=== PATIENT | female | born 1980 | race African-American/Black ===

== ENCOUNTER 2022-11-19 10:16 | Emergency (ER) | payer OTHER, SELFPAY ==
--- NOTE | ~2022-11-19 | CT_ITS ---
EXAMINATION: CT abdomen pelvis wo con DATE: 11/19/2022 12:59 INDICATION: Flank pain. Prior gastric bypass surgery and cholecystectomy. TECHNIQUE: Computed tomography (CT) of the abdomen and pelvis was performed without intravenous contr ast. The dose-length product was 448.25 mGy-cm. Automated exposure control and iterative reconstructi on technique were employed. COMPARISON: None. FINDINGS: Lung bases are unremarkable. Heart size normal. No significant pleural or pericardial effus ion. There are cholecystectomy clips. The liver, spleen, pancreas, adrenal glands and kidneys are unr emarkable. No lymphadenopathy. Small fat-containing umbilical hernia. Nonobstructive bowel gas patter n. No free air or free fluid. No significant vascular abnormality. No lymphadenopathy. No renal/ureteral stones or hydronephrosis. Bladder is unremarkable. The liver, spleen, pancreas, adrenal glands and kidneys are unremarkable. No acute osseous abnormalit y. Normal appendix. IMPRESSION: 1. No acute abdominal abnormality. Reviewed, dictated and finalized at location A. D [employer]
[2022-11-19 10:29] VITALS: BP 135/84; PULSE 72; RESP 18; TEMP 36.6; O2SAT 100
--- NOTE | 2022-11-19 10:42 | ED.GENADULT ---
HPI - General Adult General Chief complaint: Back Pain/Injury Stated complaint: back pain (chronic pain) Time Seen by Provider: 11/19/22 10:29 History of Present Illness HPI narrative: Patient is a 42-year-old female who presents ER with back pain. Left-sided and aching. Different from her typical chronic back pain that she has been suffering from since having workplace injury several months ago. She has chronic tingling in her legs from that injury and has not changed with this new back pain. No fevers or chills or sweats. Patient has some mild stomach ache. No alleviating factors at home. Patient also reports that she has foul-smelling urine without dysuria or urinary frequency. She also reports that she has some moderate vaginal discharge and is not concerned for STI. Denies retained foreign body Related Data Allergies Allergy/AdvReac Type Severity Reaction Status Date / Time No Known Allergies Allergy Verified 11/19/22 10:36 Review of Systems Review of Systems: All systems reviewed & are unremarkable except as noted in HPI and below Constitutional: Constitutional: Denies chills, Denies fatigue and Denies fever(s) ENT: Denies nasal congestion and Denies sore throat Cardiovascular: Cardiovascular: Denies chest pain, Denies rapid heart rate and Denies radiating jaw, neck or arm pain Gastrointestinal: Gastrointestinal: Reports abdominal pain, Denies nausea and Denies vomiting Genitourinary: Genitourinary: Denies abnormal vaginal bleeding, Denies hematuria, Denies nocturia, Denies dysuria, Denies pelvic pain, Denies flank pain and Reports vaginal discharge Musculoskeletal: Musculoskeletal: Reports back pain, Denies arthralgias and Denies joint swelling Exam Narrative: GENERAL: Well-appearing, well-nourished, and in no acute distress. HEAD: Normocephalic, atraumatic. ENT: Mucous membranes moist. CHEST: Clear to auscultation. No respiratory distress. HEART: Regular rate and rhythm. Normal peripheral pulses. ABDOMEN: Soft, nontender, nondistended. Left CVA tenderness. Neck: No midline tenderness to T/L-spine. EXTREMITIES: Normal range of motion. No edema. SKIN: Warm, dry, no rash. NEURO: Alert and oriented x3. PSYCH: Normal mood and affect. Course Course Emergency Course: Patient informed results. Discharge home with muscle relaxers to help with her back pain. No acute infectious process. Vital Signs Vital signs: Vital Signs Temperature 97.8 F 11/19/22 10:29 Pulse Rate 72 11/19/22 10:29 Respiratory Rate 18 11/19/22 10:29 Blood Pressure 135/84 11/19/22 10:29 Pulse Oximetry 100 11/19/22 10:29 Oxygen Delivery Room Air 11/19/22 10:29 Temperature 97.8 F 11/19/22 10:29 Pulse Rate 72 11/19/22 10:29 Respiratory Rate 18 11/19/22 10:29 Blood Pressure 141/81 H 11/19/22 14:46 Pulse Oximetry 100 11/19/22 10:29 Oxygen Delivery Room Air 11/19/22 10:29 Medical Decision Making Vital Signs Vital Signs: Vital Signs Temperature 97.8 F 11/19/22 10:29 Pulse Rate 72 11/19/22 10:29 Respiratory Rate 18 11/19/22 10:29 Blood Pressure 135/84 11/19/22 10:29 Pulse Oximetry 100 11/19/22 10:29 Oxygen Delivery Room Air 11/19/22 10:29 Temperature 97.8 F 11/19/22 10:29 Pulse Rate 72 11/19/22 10:29 Respiratory Rate 18 11/19/22 10:29 Blood Pressure 141/81 H 11/19/22 14:46 Pulse Oximetry 11/19/22 10:29 Oxygen Delivery Room Air 11/19/22 10:29 Lab Data 11/19/22 11:38 11/19/22 11:38 Labs: Lab Results 11/19/22 11/19/22 11/19/22 Range/Units 11:38 11:38 11:38 WBC 6.7 (4.5-10.0) K/mm3 RBC 4.87 (4.2-5.4) M/mm3 Hgb 13.8 (12.0-15.0) g/dL Hct 40.7 (37.0-47.0) % MCV 83.6 (80-100) fl MCH 28.3 (26-34) pg MCHC 33.9 (32-36) g/dl RDW 12.8 (11.5-14.5) % Plt Count 206 (150-375) k/mm3 MPV 10.3 (7.4-10.4) fl Immature Gran % (Auto) 0.3 (0-0.5) % Neut % (Auto) 6
[2022-11-19] MEDS: SODIUM CHLORIDE 0.9% IV 1,000 ML 999 ML IV CONT (11:18)
[2022-11-19] MEDS: KETOROLAC 30 MG/ML VIAL (*BKC) IV PUSH (11:19)
[2022-11-19 11:43] LABS: Basophils Percent Auto 0.6 % (0.2-1.2); Eosinophils Absolute Auto 0.1 K/mm3 (0-0.3); Eosinophils Percent Auto 1.3 % (0-4.4); Hematocrit 40.7 % (37.0-47.0); Hemoglobin 13.8 g/dL (12.0-15.0); Immature Granulocyte Absolute 0.02 K/mm3 (0.00-0.031); Immature Granulocyte Percent A 0.3 % (0-0.5); Lymphocytes Absolute Auto 1.77 K/mm3 (0.9-3.2); Lymphocytes Percent Auto 26.4 % (18.3-44.2); Mean Corpuscular HGB Conc 33.9 g/dl (32-36); Mean Corpuscular Hemoglobin 28.3 pg (26-34); Mean Corpuscular Volume 83.6 fl (80-100); Mean Platelet Volume 10.3 fl (7.4-10.4); Monocytes Absolute Auto 0.6 K/mm3 (0.1-0.6); Monocytes Percent Auto 9.2 % (2.6-8.5); Neutrophils Absolute Auto 4.2 K/mm3 (1.3-6.7); Neutrophils Percent Auto 62.2 % (45.5-73.1); Platelet Count Result 206 k/mm3 (150-375); Red Blood Count 4.87 M/mm3 (4.2-5.4); Red Cell Distribution Width 12.8 % (11.5-14.5); White Blood Count 6.7 K/mm3 (4.5-10.0)
[2022-11-19 11:46] LABS: Appearance Urine Clear (Clear); Bilirubin Urine Negative (Negative); Blood Urine 1+ (Negative); Color Urine Yellow (Yellow); Glucose Urine UA Negative (Negative); Ketones Urine Negative (Negative); Leukocyte Esterase Ur Negative LEU/UL (Negative); Nitrate Urine Negative (Negative); Protein Urine Negative (Negative); Specific Grav Ur 1.015 (1.001-1.035)
[2022-11-19 11:52] LABS: Bacteria Urine Trace /hpf; RBC Urine 0-2 /hpf (0-2); Squamous Epithelial Cell Urine Few /hpf (Few); WBC Urine 0-3 /hpf
[2022-11-19 11:56] LABS: Alanine Aminotransferase 17 U/L (6-35); Albumin Level 4.4 g/dL (3.5-5.1); Alkaline Phosphatase 80 U/L (38-126); Anion Gap 4 mmol/L (8-16); Aspartate Amino Transferase 21 U/L (14-36); Bilirubin,Total 0.4 mg/dL (0.2-1.3); Blood Urea Nitrogen 11 mg/dL (7-17); Calcium 8.5 mg/dL (8.4-10.2); Carbon Dioxide 30 mmol/L (22-30); Chloride 102 mmol/L (98-107); Estimated CRCL calculation 97 ml/min; Estimated Glomerular Filt Rate > 60; Glucose 90 mg/dL (65-110); Sodium 136 mmol/L (137-145)
[2022-11-19 12:00] LABS: Add Urine Microscopic? YES
[2022-11-19 14:46] VITALS: BP 141/81
== END 2022-11-19 14:50 | disposition home or self-care (01) ==
PROVIDERS: Emergency Provider Emergency Medicine
DX: S39.012A Strain of muscle, fascia and tendon of lower back, initial encounter (principal); X58.XXXA Exposure to other specified factors, initial encounter
CPT/HCPCS: 36415; 74176; 80053; 81001; 81025; 85025; 87070; 87491; 87591; 87808; 96361; 96374; 99284; J1885; J7030

== ENCOUNTER 2023-04-06 03:46 | Emergency (ER) | payer OTHER, SELFPAY ==
[2023-04-06 03:49] VITALS: BP 137/71; PULSE 67; RESP 20; TEMP 36.8; O2SAT 98
--- NOTE | 2023-04-06 04:04 | ED.GENADULT ---
HPI - General Adult General Chief complaint: Extremity Problem,Nontraumatic Stated complaint: post op pain Time Seen by Provider: 04/06/23 03:56 History of Present Illness HPI narrative: Patient is a 42-year-old female who presents the emergency department with chief complaint of diffuse Right hand pain. The patient reports that she had surgery at [facility] on her right middle finger patient reports that she was placed in a splint and given a prescription for hydrocodone for home. Patient reports that she has been having discomfort in the hand reports that its been throbbing and she took 2 doses of hydrocodone and has not had improvement in her symptoms. The patient also reports she took additional tramadol as well patient reports that she loosened the splint reports no discoloration of her fingertips Related Data Allergies Allergy/AdvReac Type Severity Reaction Status Date / Time No Known Allergies Allergy Verified 04/06/23 04:01 Review of Systems Review of Systems: A 10 system review of systems was completed on the patient and is negative except for what is stated in the HPI. Nursing and ancillary documentation was reviewed. Exam Narrative: GENERAL: Well-appearing, well-nourished, and in no acute distress. HEAD: Normocephalic, atraumatic. EYES: PERRLA and EOMI. ENT: Nares clear, no rhinorrhea or epistaxis. Mucous membranes moist. NECK: Supple. CHEST: Clear to auscultation. No respiratory distress. HEART: Regular rate and rhythm. No murmur heard. Normal peripheral pulses. ABDOMEN: Soft, nontender, nondistended, normal active bowel sounds. EXTREMITIES: Normal range of motion. No edema. Right upper extremity is in a splint intact capillary refill SKIN: Warm, dry, no rash. NEURO: No focal deficits. Alert and oriented x3. PSYCH: Normal mood and affect. Course Vital Signs Vital signs: Vital Signs Temperature 36.8 C 04/06/23 03:49 Pulse Rate 67 04/06/23 03:49 Respiratory Rate 20 04/06/23 03:49 Blood Pressure 137/71 04/06/23 03:49 Pulse Oximetry 98 04/06/23 03:49 Oxygen Delivery Room Air 04/06/23 03:49 Temperature 36.8 C 04/06/23 03:49 Pulse Rate 67 04/06/23 03:49 Respiratory Rate 20 04/06/23 03:49 Blood Pressure 137/71 04/06/23 03:49 Pulse Oximetry 98 04/06/23 03:49 Oxygen Delivery Room Air 04/06/23 03:49 Medical Decision Making MDM Narrative Medical decision making narrative: Differential diagnosis includes constriction due to swelling postsurgery, postsurgical pain Patient will be concern for infection given the surgery was earlier today The splint was loosened and shows no signs of vascular compromise Patient was given additional pain control in the emergency department and will be instructed to call her surgeon in the morning for follow-up After receiving the pain medications in the emergency department the patient reports she has had a significant improvement in her pain. Vital Signs Vital Signs: Vital Signs Temperature 36.8 C 04/06/23 03:49 Pulse Rate 67 04/06/23 03:49 Respiratory Rate 20 04/06/23 03:49 Blood Pressure 137/71 04/06/23 03:49 Pulse Oximetry 98 04/06/23 03:49 Oxygen Delivery Room Air 04/06/23 03:49 Temperature 36.8 C 04/06/23 03:49 Pulse Rate 67 04/06/23 03:49 Respiratory Rate 20 04/06/23 03:49 Blood Pressure 137/71 04/06/23 03:49 Pulse Oximetry 98 04/06/23 03:49 Oxygen Delivery Room Air 04/06/23 03:49 Discharge Plan Discharge Clinical Impression: Post-operative pain Patient Disposition: Home, Self-Care Condition: Stable Instructions: Antibiotic Form, Pain Management (ED), Splint Care (ED), Pain Management After Surgery (DC) Additional Instructions: Please rest elevate and ice the extremity. Please call your surgeon in the morning to be followed up as soon as possible preferably today Prescriptions: No Action cyclobenzaprine 10 mg tablet 10 mg PO TI
[2023-04-06] MEDS: HYDROmorphone HCL INJ (*CRX) 1 MG/ML SYR IM (04:07)
== END 2023-04-06 05:39 | disposition home or self-care (01) ==
PROVIDERS: Emergency Provider Emergency Medicine; PCP Nurse Practitioner Family
DX: G89.18 Other acute postprocedural pain (principal); M79.641 Pain in right hand
CPT/HCPCS: 96372; 99283; J1170

== ENCOUNTER 2023-07-22 13:24 | Emergency (ER) | payer OTHER, SELFPAY ==
[2023-07-22 13:52] VITALS: BP 135/81; PULSE 65; RESP 16; TEMP 36.4; O2SAT 99
[2023-07-22] MEDS: KETOROLAC (*BKC) 60 MG/2 ML VIAL IM (15:57)
[2023-07-22] MEDS: CYCLOBENZAPRINE HCL 5 MG TABLET PO (15:57)
[2023-07-22] MEDS: HYDROcodone/acetaminophen (*CRX) 5-325 MG TABLET 1 TAB PO (15:57)
[2023-07-22] MEDS: predniSONE 20 MG TABLET 60 MG PO (15:57)
[2023-07-22 16:10] LABS: Appearance Urine Cloudy (Clear); Bacteria Urine 4+ /hpf; Bilirubin Urine Negative (Negative); Blood Urine 1+ (Negative); Color Urine Yellow (Yellow); Glucose Urine UA Negative (Negative); Ketones Urine Negative (Negative); Leukocyte Esterase Ur Trace LEU/UL (Negative); Nitrate Urine Negative (Negative); Non Pathogenic Casts 0-2; Protein Urine Negative (Negative); RBC Urine 0-2 /hpf (0-2); Specific Grav Ur 1.019 (1.001-1.035); Squamous Epithelial Cell Urine Many /hpf (Few)
[2023-07-22 16:26] LABS: Add Urine Microscopic? YES
--- NOTE | 2023-07-22 16:35 | ED.BACK ---
HPI - Back Pain/Injury General Chief Complaint: Back Pain/Injury Stated Complaint: back pain Time Seen by Provider: 07/22/23 15:07 Source: patient and RN notes reviewed Mode of arrival: ambulatory Limitations: no limitations History of Present Illness HPI Narrative: This is a 42 year old female with history of lumbar bulging disc since 2019 who presents for evaluation of lower back pain. She reports she has had chronic low back pain for years. She takes tramadol for her pain daily. She reports she is tired of the pain and it has seemed to worsen 2 days ago. She denies any new injury. She reports pain in her buttock that radiates to her right foot. She denies urinary retention, saddle anesthesia, bowel incontinence, numbness or tingling. Her pain is worse with movement. She also notices chronic foul odor to her urine for 1 month. She is following with neurosurgeon Dr. Yan and she is to call tomorrow to schedule an MRI. Related Data Home Medications Medication Instructions Recorded Confirmed tramadol 50 mg tablet 50 mg PO ONCE PRN 06/29/23 06/29/23 Allergies Allergy/AdvReac Type Severity Reaction Status Date / Time No Known Allergies Allergy Verified 07/22/23 13:26 Review of Systems Constitutional: Constitutional: Denies weakness Cardiovascular: Cardiovascular: Denies syncope, Denies rapid heart rate, Denies irregular heart rhythm, Denies leg edema and Denies dyspnea Respiratory: Respiratory: Denies chest congestion, Denies hemoptysis, Denies excessive phlegm production and Denies dyspnea Gastrointestinal: Gastrointestinal: Denies abdominal pain, Denies hematochezia, Denies diarrhea and Denies vomiting Genitourinary: Genitourinary: Denies hematuria and Denies dysuria Musculoskeletal: Musculoskeletal: Reports back pain, Denies joint swelling, Denies loss of height and Denies muscle weakness Neurologic: Denies syncope, Denies focal weakness and Denies weakness PMFSH Past Medical History Medical History (Updated 07/22/23 @ 16:43 by Barbara Valerio MD) Lumbar spondylosis Surgical History Surgical History (Updated 07/22/23 @ 16:39 by Barbara Valerio MD) H/O neck surgery Social History Social History (Updated 06/29/23 @ 10:13 by Carolyn Watson) Smoking status: Current every day smoker Tobacco type: cigarettes Alcohol intake: never Substance use: never Lack of Transportation: No Lack of Food: Never True Current Housing: I Have Housing Concerned About Future Housing: No Difficulty Paying Gas/Electric Bills: YES Difficulty Paying for Meds: No Currently Unemployed: No Education: High School Diploma/GED Difficulty w/ Childcare or Family Care: No Living arrangements: with family Occupation/Education: other Gender identity (if verbalized by the patient): Female Exam Const: General: no acute distress and alert Nutritional Appearance: well nourished Orientation/consciousness: patient oriented x3 HENMT: Head: normal to inspection Eyes: EOM: EOMs intact bilaterally Resp: Effort & Inspection: normal respiratory effort Cardio: Other: normal pedal pulse Back/Spine/Pelvis: Thoracic/Lumbar Spine: paraspinal muscle tenderness on the right Skin: General skin exam: normal color Rashes: no rashes Wounds: no wounds Neuro: General: patient oriented x3, moves all extremities and CN's II-XI intact bilaterally Extrem: General: no pedal edema Psych: Mental Status: mental status grossly normal Other: tearful Course Reevaluation(s) Reevaluation #1: She reports her pain is much improved after getting toradol 60 mg IM, cyclobenzoprine 5 mg, norco 5 mg. I Discussed with patient that she does not have signs of acute cord compression needing emergent MRI. She was able to ambulate to bathroom Date: 07/22/23 Time: 16:42 Vital Signs Vital signs: Vital Signs Temperature 97.6 F 07/22/23 13:52 Pulse Rate 65 07/22/23 13:52 Respiratory Rate 16
== END 2023-07-22 16:51 | disposition home or self-care (01) ==
PROVIDERS: Emergency Provider General Practice; PCP Nurse Practitioner Family
DX: M54.41 Lumbago with sciatica, right side (principal); M54.16 Radiculopathy, lumbar region; F17.210 Nicotine dependence, cigarettes, uncomplicated
CPT/HCPCS: 81001; 81025; 87077; 87086; 87186; 96372; 99283; A9270; J1885; J7512

== ENCOUNTER 2023-07-30 06:38 | Outpatient (CLI) | payer MEDICARE, OTHER, SELFPAY ==
--- NOTE | ~2023-07-30 | MR_ITS ---
EXAMINATION: MR lumbar spine wo con DATE: 07/30/2023 07:24 INDICATION: Dorsalgia, unspecified. TECHNIQUE: Magnetic resonance imaging (MRI) of the lumbar spine was performed without intravenous con trast. Sequences included sagittal T2-weighted FSE, sagittal T2-weighted FS FSE, sagittal T1-weighted FSE, and axial T2-weighted FSE. COMPARISON: None FINDINGS: There is 8 degrees dextrocurvature of lumbar spine. Vertebral body heights are normal. Ther e is mildly decreased disc height at L4-L5 and L5-S1. The distal spinal cord signal intensity is norm al. The conus medullaris is at L1. The following disc levels are specifically discussed: L1-L2: The disc does not extend beyond the endplate margin. There is moderate bilateral facet joint o steoarthritis. There is no neural foraminal stenosis. There is no central canal stenosis. L2-L3: The disc does not extend beyond the endplate margin. There is moderate bilateral facet joint o steoarthritis. There is no neural foraminal stenosis. There is no central canal stenosis. L3-L4: The disc does not extend beyond the endplate margin. There is severe bilateral facet joint ost eoarthritis. There is no neural foraminal stenosis. There is no central canal stenosis. L4-L5: The disc is bulging and has an annular fissure. There is mild bilateral facet joint osteoarthr itis. There is moderate bilateral neural foraminal stenosis. There is mild central canal stenosis. L5-S1: The disc is bulging and has an annular fissure. There is severe bilateral facet joint osteoart hritis. There is mild bilateral neural foraminal stenosis. There is mild central canal stenosis. IMPRESSION: 1. Moderate lumbar spondylosis. Reviewed, dictated and finalized at location A.
== END 2023-07-30 06:39 | disposition home or self-care (01) ==
PROVIDERS: PCP Nurse Practitioner Family; Visit Provider Neurological Surgery
DX: M54.9 Dorsalgia, unspecified (principal); M43.06 Spondylolysis, lumbar region
CPT/HCPCS: 72148

== ENCOUNTER 2023-10-11 08:42 | Outpatient (RCR) | payer MEDICARE, OTHER, SELFPAY ==
--- NOTE | 2023-10-11 10:46 | OPREHPOC ---
Outpatient Therapy Plan of Care This is a Multidisciplinary Plan of Care that may contain components documented by all disciplines (PT, OT, and ST.) PT Problem 1 PT Problem #1 Knowledge Deficit PT Goal 1 Goal Pt to be IND with issued HEP Target Visit 8 PT Problem 2 PT Problem #2 Pain PT Goal 1 Goal Pt to report back pain no greater than 4/10 in the last week Target Visit 8 PT Goal 2 Goal Pt to report 50% improvement in overall symptoms. PT Problem 3 PT Problem #3 Impaired Functional Mobil PT Goal 1 Goal Pt to demonstrate a sit to stand without substitutions Target Visit 8 PT Goal 2 Goal Pt to demonstrate a functional lift and carry with 20lb without an increase in symptoms. Target Visit 8
--- NOTE | 2023-10-11 10:46 | PTOPEVAL1 ---
Assessment and note entered by Eri Leon, PT, DPT Evaluation Information Assessment Status Evaluation Diagnosis lumbar stenosis Onset 5 years. Subjective Information Pt states she has to have surgery, she states she has multiple pinched nerves despite what the MRI results say. She states she cannot go up stairs, lay on her back, lay on her R side, or sit for longer than 30 mins. Pt states she does not work, she just lays around the house all day. Pt states she is a 8/10 at rest, and gets really mad when she gets a 10/10 pain. She states she never has no pain, is it a 6/10 at the best. Pt does not work anymore. Reported Pain Level Pain Score 8: Self Report Assessment PT Clinical Summary Ann presents to therapy today for her initial evaluation with a diagnosis of low back pain. Today she demonstrates good lumbar ROM and good functional strength. She reports high amounts of pain at rest that increases exponentially with movement. She demonstrates lots of guarding and hesitation with functional tasks. Skilled therapy services are indicated to improved body mechanics, spinal mobility, core strength, and to return to PLOF. Plan of Care Interventions Electrical Stimulation,Gait Training,Hot Pack/Cold Pack,Manual Therapy,Neuro Re-education,Patient/ Caregiver Educati,Therapeutic Activities, Therapeutic Exercise PT Services Indicated Yes Treatment Frequency and 2x/wk for 8 visits Duration These treatments will address the objective and functional deficits as defined above. The patient will be advanced safely and appropriately in order for the patient to progress towards his/her prior level of function. Additional exercises will be introduced and as well as a comprehensive home exercise program upon discharge, if needed, ?to ensure carryover of functional gains achieved in the clinic. This treatment plan has been reviewed and agreement upon by the patient.
--- NOTE | 2023-10-16 14:20 | PCPTNOTE ---
Patient no call no showed to appointment this date. Called and left voicemail with reminder for upcoming appointment.
--- NOTE | 2023-10-24 10:41 | PCPTNOTE ---
Patient no showed to appointment this date. Called and left voicemail.
--- NOTE | 2023-10-25 08:10 | PTOPDC ---
Assessment and note entered by Eri Leon, PT, DPT Evaluation Information Assessment Status Discharge - Pt Not Present Diagnosis lumbar stenosis Onset 5 years. Subjective Information Pt called the clinic and cancelled all of her remaining appointments. She states therapy is not helping and she does not know why her doctor sent her anyway. Assessment PT Clinical Summary Pt was evaluated on 10/11/23 and did not complete any subsequent treatments. She will be discharged at this time per her request.
== END 2023-10-25 08:31 | disposition home or self-care (01) ==
LOC: ANHGOSHPT 08:42
PROVIDERS: PCP Nurse Practitioner Family; Visit Provider Anesthesiology Pain Medicine
DX: M25.561 Pain in right knee (principal); M25.559 Pain in unspecified hip; M47.817 Spondylosis without myelopathy or radiculopathy, lumbosacral region; M54.9 Dorsalgia, unspecified; M46.1 Sacroiliitis, not elsewhere classified; G89.29 Other chronic pain
CPT/HCPCS: 97110; 97161; 99199

== ENCOUNTER 2023-10-30 09:51 | Day surgery (SDC) | payer MEDICARE, OTHER, SELFPAY ==
[2023-10-26 11:37] VITALS: BMI 28.8
--- NOTE | ~2023-10-30 | XR_ITS ---
EXAMINATION: XR fluoroscopy no charge DATE: 10/30/2023 12:05 BATTERY HAND INDICATION: ALFREDO L3,L4,L5 BK . TECHNIQUE: 10 fluoroscopic images and a cine clip of 5 images of the lumbar spine were obtained durin g bilateral L3, L4, and L5 blocks performed by the surgeon. I was not present in the operating room. Fluoroscopy exposure time was 19.6 seconds. Air Kerma 3.64 mGy. COMPARISON: None FINDINGS: Fluoroscopic images demonstrate needle access to the lateral aspects of the L3, L4, and L5 vertebral bodies, followed by contrast injection. IMPRESSION: Fluoroscopic documentation of bilateral L3, L4, and L5 blocks. Please refer to the operative note for complete procedural details . Reviewed, dictated and finalized at location K. ERY HAND
[2023-10-30 10:33] VITALS: BMI 27.2
[2023-10-30 10:35] VITALS: BP 136/91; PULSE 68; RESP 16; TEMP 36.9; O2SAT 100
--- NOTE | 2023-10-30 11:27 | WPDHPUPDATE1 ---
History and Physical Update Update Date/Time: 10/30/23 11:27 History and Physical has been reviewed, including an updated exam of the patient. There are NO changes in the patient's condition. Risks, benefits, and alternatives have been discussed and questions answered. Patient agrees to proceed with procedure.
--- NOTE | 2023-10-30 12:02 | W.PM.PROC2 ---
Procedure Note - Detailed Date of Procedure 10/30/23 Pre-op Diagnosis Spondylosis Lumbosacral Region, chronic low back pain Post-op Diagnosis Same Procedure Performed bilateral L3, L4, L5 medial branch/ dorsal ramus nerve blocks (#1) addressing the bilateral L4-5 L5-S1 facet joints under fluoroscopic guidance contrast control. Surgeon Preston Lima MD Anesthesia Local Description of Procedure INFORMED CONSENT: Risks, benefits and alternatives to the procedure were discussed in detail with the patient who expressed explicit understanding and consent to proceed. Patient was informed verbally and in written form regarding the risks associated with the procedure including the low risk of serious infection, bleeding/bruising, allergic reaction, nerve or organ injury, paralysis, procedural site pain or discomfort, worsening pain and/or mobility, failure to treat and/or disfigurement. The patient expressed explicit understanding and consent to proceed. All materials required for the procedure were available prior to procedure start. Site and side were marked prior to procedure and confirmed in the presence of the patient. PROCEDURE IN DETAIL: The patient was brought to the procedural suite and placed in the prone position. Patient was made comfortable with use of pillows under the head/chest, hips and ankles. Skin overlying the injection site on the affected side(s) was prepared broadly with ChloraPrep applicator and draped in a sterile manner. Aseptic technique was used throughout. The endplates of the vertebral bodies at the site(s) of interest were aligned in the AP view. Ipsilateral oblique angulation was utilized to optimize visualization of the intersection between the superior articulating process and transverse process at each target site. Local anesthesia was established by infiltration with approximately 5 mL of 1% lidocaine via a 1-1/2 inch 27-gauge needle. A 25-gauge 5.0 inch Quincke spinal needle was advanced until the needle tip contacted periosteum at the target site, right L3. Lateral view was utilized to confirm the appropriate placement of the needle tip just anterior to the facet line and superior to the pedicle. In the Lateral view, 0.25 mL of Omnipaque 300 contrast medium was injected after negative aspiration for CSF, blood or other bodily fluid, showing appropriate extra-articular spread of contrast without evidence of intravascular, foraminal or intrathecal placement. A 0.5 mL solution of 0.5% PF bupivacaine was injected after negative repeat aspiration. Appropriate spread of the injectate was confirmed with washout of previously injected contrast. No parasthesias were elicited. Needle was removed completely intact without difficulty. The same exact procedure was repeated for all remaining levels on the ipsilateral side, right L4, L5 medial branches/dorsal ramus, modified as necessary to accommodate for the new target location with identical findings and results and no evidence of complication. The same exact procedure was repeated for all remaining levels on the contralateral side, left L3, L4, L5 medial branches/dorsal ramus, modified as necessary to accommodate for the new target location with identical findings and results and no evidence of complication. Images were saved and documented in the patient chart. Patient's skin was cleaned and sterile bandage applied. The patient tolerated the procedure well. The patient was transported to the recovery area in stable condition where they were observed for an appropriate amount of time prior to discharge, without evidence of complication. Patient was instructed on the appropriate completion of a pain diary over the next 12-24 hours. The patient was instructed to avoid excessive activity for the next 48 hours, including climbing and frequent use of stairs. Showers only for 48 hours. They were instructed not to drive or operate heavy machinery for 24 hours. They are to monitor for severe head
[2023-10-30 12:10] VITALS: BP 136/64; PULSE 61; RESP 19; O2SAT 100
[2023-10-30 12:20] VITALS: BP 138/73; PULSE 64; RESP 20; O2SAT 100
[2023-10-30] MEDS: LIDOCAINE HCL 1% PF INJ 5 ML VIAL INFILTRATE (12:20)
[2023-10-30] MEDS: BUPivacaine HCL 0.5% 10 ML AMP INFILTRATE (12:27)
[2023-10-30 12:30] VITALS: BP 129/87; PULSE 65; RESP 14; O2SAT 100
--- NOTE | 2023-10-30 12:53 | SUR.PHASEII ---
1235; PT MOVES ALL EXTREMITIES WELL. DENIES PAIN, NUMBNESS, OR TINGLING TO ALL EXTREMITIES.
== END 2023-10-30 12:45 | disposition home or self-care (01) ==
PROVIDERS: PCP Nurse Practitioner Family; Visit Provider Anesthesiology Pain Medicine
PROC: (CPT 64493; principal; 2023-10-30 11:30)
DX: M47.817 Spondylosis without myelopathy or radiculopathy, lumbosacral region (principal); M54.59 Other low back pain
CPT/HCPCS: 64493; 64494; 64495; 99199

== ENCOUNTER 2024-01-08 15:43 | Emergency (ER) | payer MEDICARE, SELFPAY ==
--- NOTE | ~2024-01-08 | XR_ITS ---
EXAM: XR knee RT min 4V DATE: 01/08/2024 16:56 HISTORY: pain, swelling . COMPARISON: None available. FINDINGS: Normal mineralization. No fracture or dislocation. No lytic or blastic lesion. Mild medial joint space narrowing. Quadriceps enthesopathy. No erosion or periosteal change. Large volume knee j oint fluid. Soft tissues within normal limits. IMPRESSION: No acute osseous finding in the right knee. Large right knee joint effusion. Reviewed, dictated and finalized at location K.
--- NOTE | ~2024-01-08 | US_ITS ---
EXAMINATION: US venous doppler LE RT DATE: 01/08/2024 16:53 INDICATION: knee pain, swelling, tightness in calf . TECHNIQUE: Grayscale images without and with compression and Doppler images of the right lower extrem ity veins were obtained. COMPARISON: None FINDINGS: The right common femoral vein, profunda (deep) femoral vein, femoral vein, popliteal vein, peroneal v ein, posterior tibial veins, gastrocnemius vein, and greater saphenous vein are patent. IMPRESSION: Patent right lower extremity veins. No evidence of deep venous thrombosis. Reviewed, dictated and finalized at location K.
[2024-01-08 15:59] VITALS: BP 127/73; PULSE 70; RESP 17; TEMP 36.6; O2SAT 100
--- NOTE | 2024-01-08 16:03 | ED.EXTPRO ---
HPI - Extremity Problem General Chief complaint: Extremity Problem,Nontraumatic Stated complaint: bilateral knee pain Time Seen by Provider: 01/08/24 16:00 Source: patient Mode of arrival: ambulatory Limitations: no limitations History of Present Illness HPI Narrative: Patient is a 43 y/o female who presents to the ED with c/o R knee pain and swelling. She reports having pain for past several years, but c/o worsening pain and swelling to her right knee since . Pain worse with movement, walking, and flexion of knee. States her right knee and leg feels very tight. She does perform repetitive motions with work, but denies any recent trauma or injury. Denies numbness, chest pain, shortness of breath. Related Data Home Medications Medication Instructions Recorded Confirmed tramadol 50 mg tablet 50 mg PO TID 10/26/23 10/30/23 Allergies Allergy/AdvReac Type Severity Reaction Status Date / Time No Known Allergies Allergy Verified 01/08/24 15:44 Review of Systems Review of Systems: CONSTITUTIONAL: Denies fever, chills, or sweats. MUSCULOSKELETAL: See HPI. NEUROLOGIC: Denies headache, dizziness, numbness, or weakness. All systems reviewed & are unremarkable except as noted in HPI and below PMFSH Past Medical History Medical History Lumbar spondylosis Surgical History Surgical History H/O neck surgery Disc replacement 2020 C3-C4 Family History Family History Mother Cerebrovascular accident Brain aneurysm Social History Social History Smoking packs per day: 0.5 Smoking cigarettes per day: 10.0 Years smoked: 24 Smoking pack-years: 12.00 Smoking status: Current every day smoker Tobacco type: cigarettes Alcohol intake: current Alcohol use details: occassionally Substance use: never Lack of Transportation: No Lack of Food: Often True Current Housing: I Have Housing Concerned About Future Housing: No Difficulty Paying Gas/Electric Bills: No Difficulty Paying for Meds: No Currently Unemployed: YES Education: High School Diploma/GED Difficulty w/ Childcare or Family Care: No Living arrangements: with family Occupation/Education: other Gender identity (if verbalized by the patient): Female Spiritual care concerns: No Exam Narrative: GENERAL: Well appearing, well-nourished, non-toxic, in no acute distress. HEAD: Normocephalic, atraumatic. RESPIRATORY: Airway patent, respirations nonlabored. CARDIOVASCULAR: Regular rate and rhythm. Pedal pulses strong and easily palpable. MUSCULOSKELETAL: Moves all extremities. No gross deformities. Mild limited flexion range of motion of right knee due to pain. No significant tenderness to palpation throughout anterior right knee joint spaces. Mild swelling noted to anterior right knee. No warmth or erythema. Sensation intact. No significant tenderness or swelling throughout R calf/lower leg. SKIN: Warm, dry, normal color. NEURO: A&O X3. Speech clear. Mildly antalgic gait. PSYCHIATRIC: Appropriate mood and affect. Normal interaction. Course Vital Signs Vital signs: Vital Signs Temperature 97.9 F 01/08/24 15:59 Pulse Rate 70 01/08/24 15:59 Respiratory Rate 17 01/08/24 15:59 Blood Pressure 127/73 01/08/24 15:59 Pulse Oximetry 100 01/08/24 15:59 Oxygen Delivery Room Air 01/08/24 15:59 Temperature 97.9 F 01/08/24 15:59 Pulse Rate 70 01/08/24 15:59 Respiratory Rate 17 01/08/24 15:59 Blood Pressure 127/73 01/08/24 15:59 Pulse Oximetry 100 01/08/24 15:59 Oxygen Delivery Room Air 01/08/24 15:59 MDM - Extremity (Nontraumatic) MDM Narrative Medical decision making narrative: Patient?s injury is consistent with musculo
[2024-01-08] MEDS: ACETAMINOPHEN 500 MG TABLET 1000 MG PO (16:21)
== END 2024-01-08 17:37 | disposition home or self-care (01) ==
PROVIDERS: Emergency Provider Physician Assistant
DX: M25.561 Pain in right knee (principal); M25.461 Effusion, right knee; M62.461 Contracture of muscle, right lower leg; F17.210 Nicotine dependence, cigarettes, uncomplicated
CPT/HCPCS: 73564; 93971; 99284; A9270

== ENCOUNTER 2024-01-16 15:03 | Outpatient (CLI) | payer MEDICARE, SELFPAY ==
--- NOTE | ~2024-01-16 | MR_ITS ---
EXAMINATION: MR knee RT wo con DATE: 01/16/2024 15:52 INDICATION: Medial meniscal tear at the right knee with right knee pain, popping and giving out. TECHNIQUE: Magnetic resonance imaging (MRI) of the right knee was performed without intravenous contr ast. Sequences included coronal PD-weighted FSE, coronal PD-weighted FS FSE, sagittal T2-weighted FS E, sagittal PD-weighted FS FSE and axial PD weighted fat saturated FSE. COMPARISON: None. FINDINGS: Medial compartment: Medial meniscus is normal. Articular cartilage is normal. Lateral compartment: Lateral meniscus is normal. Articular cartilage is normal. Patellofemoral compartment: Deep chondral fissuring at the cephalad half of the trochlear groove with mild underlying subarticula r edema-like signal change. Patellar cartilage is normal. Ligaments and tendons: Anterior and posterior cruciate ligaments are normal. The medial collateral ligament and fibular dawson ateral ligament complex are normal. Small enthesophyte at the superficial patellar insertion of the o therwise normal distal quadriceps tendon. Patellar tendon is normal. The visualized medial and latera l hamstring tendons as well as the iliotibial band are normal. Fluid: Small right knee joint effusion. No loose osteochondral bodies identified. Osseous/other: Bone alignment is normal. No fracture or pathologic marrow replacing process. IMPRESSION: 1. 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 2. Remaining cartilage appears normal along with normal menisci and stabilizing ligaments of the knee . 2. Likely reactive small right knee joint effusion. Reviewed, dictated and finalized at location A. IMPRESSION: 1. 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 2. Remaining cartilage appears normal along with normal menisci and stabilizing ligaments of the knee. 2. Likely reactive small right knee joint effusion.
== END 2024-01-16 15:04 ==
LOC: GOSHIMG 15:05
PROVIDERS: PCP Orthopaedic Surgery; Visit Provider Orthopaedic Surgery
DX: S83.241A Other tear of medial meniscus, current injury, right knee, initial encounter (principal); M94.261 Chondromalacia, right knee; X58.XXXA Exposure to other specified factors, initial encounter
CPT/HCPCS: 73721

== ENCOUNTER 2024-01-20 20:10 | Emergency (ER) | payer MEDICARE, SELFPAY ==
--- NOTE | 2024-01-20 20:36 | PC.NURSE ---
Pt LWBS. Pt educated on s/s that warrant a return visit. Pt educated to come back to facility to be seen if sx continue. Pt a&ox4 and ambulatory out of dept.
== END 2024-01-20 23:05 | disposition left against medical advice (07) ==
LOC: ANHED 20:41
PROVIDERS: PCP Orthopaedic Surgery
DX: Z53.21 Procedure and treatment not carried out due to patient leaving prior to being seen by health care provider (principal)
CPT/HCPCS: 99199

== ENCOUNTER 2024-06-27 13:15 | Outpatient (CLI) | payer MEDICARE, SELFPAY ==
--- NOTE | ~2024-06-27 | MM_ITS ---
EXAMINATION: MM screening charmaine BI w kiara HISTORY: Screening TECHNIQUE: Craniocaudal and mediolateral oblique 3-D tomosynthesis images were obtained and synthetic 2-D images were generated. CAD analysis was submitted and interpreted. COMPARISON: No prior mammogram is available for comparison at this institution. BREAST PARENCHYMAL COMPOSITION: Dense: The breasts are heterogeneously dense, which may obscure small masses FINDINGS: There is no evidence of suspicious mass, calcification, or architectural distortion to sugg est malignancy in either breast. There has been no suspicious interval change. IMPRESSION: 1. No mammographic evidence of malignancy. 2. Recommend routine screening mammography in one year. BI-RADS Category 1: Negative Reviewed, dictated and finalized at location B.
== END 2024-06-27 13:16 | disposition home or self-care (01) ==
PROVIDERS: PCP Family Medicine; Visit Provider Orthopaedic Surgery
DX: Z12.31 Encounter for screening mammogram for malignant neoplasm of breast (principal)
CPT/HCPCS: 77063; 77067

== ENCOUNTER 2024-06-30 08:58 | Outpatient (CLI) | payer MEDICARE, SELFPAY ==
--- NOTE | ~2024-06-30 | US_ITS ---
US pelvic complete w TV Ordering provider: Pedro Luis Lambert MD History: . N93.9 - Abnormal uterine and vaginal bleeding, unspecified . Comparison: None. Technique: Transabdominal and endovaginal ultrasound of the pelvis (Doppler ultrasound interrogation techniques used as needed for this exam.) FINDINGS: CERVIX: Nabothian cyst measuring 1.1 x 1.2 x 1.1 cm. UTERUS: Measures 8.2x 6.2x 4.4 cm in length which is within normal limits and is anteverted. No myom etrial masses. ENDOMETRIUM: Normal in thickness measuring 3 mm. (Note: the premenopausal endometrium may measure up to 16 mm when in the secretory phase.) No endometrial masses, cysts or fluid. CUL DE SAC: No free fluid. RIGHT OVARY: Normal in size measuring 2.9x 2.6x 2.1 cm. Normal echotexture. Doppler vascular flow pre sent. LEFT OVARY: Normal in size measuring 2.5x 2.7x 1.5 cm. Normal echotexture. Doppler vascular flow pres ent. ADNEXA: Normal. No mass. IMPRESSION: Nabothian cyst of the cervix. Otherwise, normal pelvic ultrasound. Reviewed, dictated and finalized at location A.
== END 2024-06-30 08:59 | disposition home or self-care (01) ==
LOC: GOSHIMG 08:59
PROVIDERS: PCP Family Medicine; Visit Provider Student in an Organized Health Care Education/Training Program
DX: N88.8 Other specified noninflammatory disorders of cervix uteri (principal)
CPT/HCPCS: 76830; 76856

== ENCOUNTER 2025-04-03 10:41 | Outpatient (CLI) | payer MEDICARE, SELFPAY ==
--- NOTE | ~2025-04-03 | MR_ITS ---
MRI of the lumbar spine Clinical History: Spinal stenosis Technique: Axial T2-weighted images, and sagittal T1-weighted, T2-weighted, and T2 fat-sat images wer e acquired. COMPARISON: 07/30/2023 Findings: There is no fracture or sublocation of the lumbar spine. Vertebral bodies maintain normal h eight and alignment. No bone marrow signal abnormality seen. At L1-L2, L2-L3, L3-L4, intervertebral discs are normal in signal and position. No disc bulge or flip iation at these levels. There is moderate facet arthropathy at L3-L4. No spinal canal stenosis or sanna ral foraminal narrowing at these levels. At L4-L5, there is disc desiccation with disc bulge and superimposed left paracentral to left foramin al disc protrusion/herniation. There is mild effacement of the ventral thecal sac with left lateral r ecess stenosis and probable impingement of the descending left-sided L5-S1 level nerve root. There is moderate left neural foraminal narrowing. There is moderate to advanced right neural foraminal narro wing. At L5-S1, there is disc bulge with moderate facet arthropathy. No central canal stenosis. There is mo derate bilateral neural foraminal narrowing. Paravertebral soft tissues are unremarkable. Impression: Large left paracentral disc protrusion/herniation at L4-L5 with underlying disc bulge. There is bilat eral significant neural foraminal narrowing and probable impingement of the descending left-sided L5- S1 level nerve root. Bilateral neural foraminal narrowing at L5-S1, as detailed above. Reviewed, dictated and finalized at [facility]. Impression: Large left paracentral disc protrusion/herniation at L4-L5 with underlying disc bulge. There is bilateral significant neural foraminal narrowing and probable impingement of the descending left-sided L5-S1 level nerve root. Bilateral neural foraminal narrowing at L5-S1, as detailed above.
== END 2025-04-03 10:42 | disposition home or self-care (01) ==
PROVIDERS: PCP Family Medicine; Visit Provider Family Medicine
DX: M48.061 Spinal stenosis, lumbar region without neurogenic claudication (principal); M51.26 Other intervertebral disc displacement, lumbar region
CPT/HCPCS: 72148

== ENCOUNTER 2025-04-04 13:56 | Emergency (ER) | payer MEDICARE, SELFPAY ==
[2025-04-04 13:57] VITALS: BP 128/67; PULSE 78; RESP 20; TEMP 36.4; O2SAT 100
--- OUTSIDE RECORDS SUMMARY | 2025-04-04 13:58 | XMS_ITS | Data Portability ---
Author Organization [place] [employer], Main Office Address [address] [place] [address] Care Team Providers Care Lining Machine Operator Name Role Phone MICHAEL MEDINA Primary Care Provider MICHAEL MEDINA Referring Provider [phone] Assessment Encounter Date Assessment Date Assessment LastModified by Organization Details LastModified Time 01/15/2023 01/15/2023 Patient has back pain. She presents with an MRI scan that shows a good-sized disc at L4-5 a smaller 151. Most of the displacement to the left and this worker pain is. Interesting the pain predominantly is in the sacroiliac region she does not have much in her particular complaints least today. Has been 4 years since the injury she has had neck surgery but not the lower spine operated. I injected the sacroiliac region with 20 mg Kenalog 4 cc 1% lidocaine see if we get rid of some of the localized pain. She did get a little wozy after the injection, I had her rest for few minutes in the office. For prescription drug management will try prednisone taper for pain and inflammation. I think at this point I would like an opinion from a spine surgeon [facility] surgery would be helpful as she does have reasonable sized disc. We will also refer her for that and will send her to [facility] for spine surgery consultation. I have discussed this with patient and her in detail risks benefits limitations and alternatives if they have any questions or any issues they will call me back. lucas Not available 01/15/2023 12:58:46 Plan of Treatment Reminders Order Date Submit Date Provider Last Modified By Organization Details Last Modified Time Details Appointments None recorded. Lab lipid panel, serum 2022 023 [facility], [address] [place] [address], [address], 3 23:29:35 pap, LB + HR HPV 2022 023 [email or web address] [facility], [address] [place], [address], 3 08:44:38 urinalysis , dipstick 2022 023 [email or web address] [facility] [address], [place], [address], 3 11:45:23 CBC 2022 023 [facility], [address] [place], [address], 3 23:29:35 CMP, serum or plasma 2022 023 [facility], [address] [place], [address], 3 23:29:35 HbA1c (hemoglobi n A1c), blood 2022 023 [facility], [address] [place], [address], 3 08:00:44 Referral hand surgeon referral - 90 degree contractur e off R-ring finger, please review and call patient to schedule 2022 023 [email or web address] 1 [facility], [address] [facility], [place], [address], 3 10:03:58 orthopedic spine surgeon referral 2022 023 JACQUIE Yan MD, [address], [facility], [place], [address], 3 13:25:16 hand surgeon referral 2022 023 [email or web address] Simon Corado MD, [address] [place], [address], 20:36:07 Procedures injection/ aspiration joint/burs a (PROC) - in office procedure, administer ed by provider 2022 023 [email or web address] In-Office Order, Internal Use Only DO Not Attach Compendium DO Not Attach Compendium, Do Not Delete/merge, [id number] 12:23:22 Surgeries None recorded. Imaging XR, hand, 3 or more view 2022 023 [email or web address] [facility] [place], [address] [facility] [address], [place], [address], 16:56:24 MAMMO, screening, digital, bilateral 2022 023 [email or web address] [facility], [address], [address] [address], [place], [address], 3 08:10:08 Medication Orders Kenalog 10 mg/mL suspension for injection 2022 023 christelle 58 [facility], [address] [place], [place], [id number], 3 12:34:46 ropivacain e (PF) 5 mg/mL (0.5 %) injection solution 2022 023 [facility] 58 [facility] #50700, [address] [place], [place], [id number], 3 12:34:46 prednisone 20 mg tablet 2022 023 [facility] 58 [facility] #69071, [address], [place], [id number], 3 12:34:46 Macrobid 100 mg capsule 2022 023 [facility] #74739, [address], [place], [id number], 3 12:51:23 fluconazol e 150 mg tablet 2022 023 [facility] #74689, [address], [place], [id number], 3 11:22:04 Linzess 145 mcg capsule 2022 023 [facility] #06134, [address], [place], [id number], 3 11:05:12 Patient TargetsNo targets recorded. Patient InstructionsNo instructions recorded. Reason for Referral Hand Surgeon Referral for In jury of finger Referring Physician: Susan Bishop, Family Medicine, Encounter Date: 12/25/2022 Orthopedic Spine Surgeon Ref erral for Low back pain Referring Physician: Shane Conley, Orthopedic Surgery, Encounter Date: 01/15/2023 Hand Surgeon Referral for Co ntracture of muscle of right hand 90 degree contracture off R-ring finger, please review and call patient to schedule Referring Physician: Simon Corado, Orthopedic Surgery, Encounter Date: 01/24/2023 Results Created Date Observation Date Name Description Value Unit Range Abnormal Flag Note LastModifiedBy Organization Detail LastModifiedTime 12/26/1912/25/2022 urina lysis , dipst ick Leukocytes (reference range: negative glendy/ l) Negati ve Not Available [address], [place], [address], 12/25/2022 11:02:06 12/26/19 23 12/25/2022 urina lysis , dipst ick Nitrite (reference rage: negative mg/dl) positi ve Not Available [address], [place], [address], 12/25/2022 11:02:06 12/26/19 23 12/25/2022 urina lysis , dipst ick Urobilinogen (reference range: 0.2-1 mg/dl) 0.2 Not Available [address], [place], [address], 12/25/2022 11:02:06 12/26/19 23 12/25/2022 urina lysis , dipst ick Protein (reference range: negative mg/dl) Negati ve Not Available [address], [place], [address], 12/25/2022 11:02:06 12/26/19 23 12/25/2022 urina lysis , dipst ick pH (reference range: 5-7) 5.5 Not Available [address], [place], [address], 12/25/2022 11:02:06 12/26/1912/25/2022 urina lysis , dipst ick Blood (reference range: negative Galdino/ l) Small Not Available [address], [place], [address], 12/25/2022 11:02:06 12/26/19 23 12/25/2022 urina lysis , dipst ick Specific Gypsy (reference range: 1.005-1.030) 1.020 Not Available [address], [place], [address], 12/25/2022 11:02:06 12/26/19 23 12/25/2022 urina lysis , dipst ick Ketone (reference range: negative mg/dl) Negati ve Not Available [address], [place], [address], 12/25/2022 11:02:06 12/26/19 23 12/25/2022 urina lysis , dipst ick Bilirubin (reference range: negative mg/dl) Negati ve Not Available [address], [place], [address], 12/25/2022 11:02:06 12/26/19 23 12/25/2022 urina lysis , dipst ick Glucose (reference range: negative mg/dl) Negati ve Not Available [address], [place], [address], 12/25/2022 11:02:06 12/26/19 23 12/25/2022 urina lysis , dipst ick Appearance Clear Not Available [address], [place], [address], 12/25/2022 11:02:06 12/26/19 23 12/25/2022 urina lysis , dipst ick Color Yellow Not Available [address], [place], [address], 12/25/2022 11:02:06 01/16/20 23 MRI, lumba r spine , w/o contr ast No observ ation record ed. [email or web address] Not Available 2022 12:29:57 01/25/20 23 XR, hand, 3 or more view No observ ation record ed. [email or web address] [facility] [place] [address] [facility] [address], [place], [address], 01/24/2023 16:54:16 07/30/20 23 07/30/2023 MRI, lumba r spine , w/o contr ast No observ ation record ed. [id number] [facility] [address], [place], [address], 07/30/2023 09:24:00 10/30/19 24 10/30/2023 favian KNOWLES No observ ation record ed. [address], [place], [address], 10/31/2023 08:28:11 Result Notes None recorded. Problems Name Problem SNOMED Code Status Onset Date Resolution Date Notes Provider Name and Address Organization Details Recorded Time Chronic idiopathic constipatio n 82039386 Active 2022 HIWOT Lawrence [address], [place], [address], [employer] 3 10:58:00 Constipatio n 64584480 Active 2022 HIWOT Lawrence [address], [place], [address], [employer] 3 10:58:05 Abnormal urine odor 3930023 Active 2022 HIWOT Lawrence [address], [place], [address], [employer] 3 11:02:18 Trigger finger of right hand 0587853603922 9101 Active 2022 HIWOT Lawrence [address], [place], [address], [employer] 3 11:02:49 Injury of finger 52363891 Active 2022 HIWOT Lawrence [address], [place], [address], [employer] 3 11:04:04 Vaginal discharge 555205295 Active 2022 HIWOT Lawrence [address], [place], [address], [employer] 3 11:21:39 Candidiasis of vagina 67627473 Active 2022 HIWOT Lawrence [address], [place], [address], [facility] 3 11:21:45 Low back pain 764906978 Active 2022 Deb Cerrato RODRICK null, [facility] 3 11:56:37 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 27714018 Active 2022 Shane Conley MD [address], [place], [address], [facility] 3 12:56:32 Pain in left sacroiliac joint 3584686029876 9102 Active 2022 Shane Conley MD [address], [place], [address], [facility] 3 12:57:04 Pain in right hand 4875977508593 09 Active 2022 Valeria Emanuel RODRICK null, [facility] 3 14:56:14 Contracture of muscle of right hand 7630441240489 08 Active 2022 Evelyn Jewel null, [facility] 3 15:20:41 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 Procedures Surgical History Date Name Laterality Status Provider Name and Address Organization Details Recorded Time Ortho - Cortisone Injection completed Shane Conley MD [address], [place], [address], [facility] 01/15/2023 12:54:35 Imaging Results None recorded. Procedure Notes None recorded. Medical Equipment None Reported. Allergies No known drug allergies Medications Name Sig Start Date Stop Date Status Note LastModified by Organization Details LastModified Time cyclobenzap rine 10 mg tablet Take 1 tablet 3 times a day by oral route as needed for 30 days. active Not Available Not Available No t Available ibuprofen 800 mg tablet TK 1 T PO TID PRF PAIN 10/24 completed Not Available Not Available Not Available fluconazole 150 mg tablet Take 1 tablet by oral route. Take second tablet 72 hours later if needed. active Not Available Not Available No t Available metronidazo le 0.75 % (37.5 mg/5 gram) vaginal gel Insert 1 applicato rful every day by vaginal route at bedtime for 5 days. 10/24 completed Not Available Not Available Not Available prednisone 20 mg tablet Take 1 tab by mouth, 3 times a day for 3 daysTake 1 tab by mouth 2 times a day for 2 daysTake 1 tab by mouth once a day for 1 day active Not Available Not Available No t Available metronidazo le 500 mg tablet TK 1 T PO BID 01/11 completed Not Available Not Available Not Available tramadol 50 mg tablet Take 1 tablet every 6 hours by oral route as needed. active Not Available Not Available No t Available acetaminoph en 500 mg tablet TK 1 TO 2 TS PO Q 4 TO 6 H PRN. MAX OF 8 TS PER 24 H. 10/24 completed Not Available Not Available Not Available Kenalog 10 mg/mL suspension for injection Take 20 mg by injection route. 2022 active [facility]: 0003- 0494- 20 Not Available Not Available Not Available benzonatate 100 mg capsule 10/24 completed Not Available Not Available Not Available diclofenac sodium 50 mg tablet,neo yed release Take 1 tablet twice a day by oral route for 30 days. active Not Available Not Available No t Available dicyclomine 10 mg capsule Take 1 capsule 3 times a day by oral route as needed for 30 days. 01/11 completed Not Available Not Available Not Available nitrofurant oin monohydrate /macrocryst als 100 mg capsule TAKE 1 CAPSULE BY MOUTH EVERY 12 HOURS FOR 7 DAYS active Not Available Not Available No t Available tramadol 12/25 completed Not Available Not Available Not Available ropivacaine (PF) 5 mg/mL (0.5 %) injection solution Take 20 mg by injection route. 2022 active Not Available Not Available Not Avai lable Chantix Continuing Month Box 1 mg tablet Take 1 tablet twice a day by oral route as directed. 10/24 completed Not Available Not Available Not Available Chantix Starting Month Box 0.5 mg (11)-1 mg (42) tablets in dose pack Take per package instructi ons 10/24 completed Not Available Not Available Not Available Linzess 145 mcg capsule TAKE 1 CAPSULE BY MOUTH EVERY DAY active Not Available Not Available No t Available Vitals Date Recorded Body weight Body mass index (BMI) Body height Body temperature Heart rate Oxygen saturation Oxygen saturation in Arterial blood by Pulse oximetry Systolic blood pressure Diastolic blood pressure Provider Name and Address Organization Details Last Updated DateTime 3 80086.2 6 g 28.4 kg/m2 167.64 cm 98.3 [degF] 83 /min 100 % 100 % 118 mm[Hg] 72 mm[Hg] Anibal Flores [facility] [employer] [facility] 10:51:04 Date Recorded Body height Body mass index (BMI) Body weight Provider Name and Address Organization Details Last Updated DateTime 01/15/2023 167.64 cm 28.9 kg/m2 94036.03 g Deb Cerrato [facility] [employer] [facility] 01/15/2023 11:55:18 Date Recorded Body height Body mass index (BMI) Body weight Provider Name and Address Organization Details Last Updated DateTime 01/24/2023 167.64 cm 28.6 kg/m2 92648.29 g Valeria Emanuel [facility] [employer] [facility] 01/24/2023 14:55:11 Social History None recorded. Functional Status None recorded. Mental Status None recorded. Family History Relationship Description Onset Age of this Age Resolved Age Notes LastModified by Organization Details LastModified Time Mother Family history of stroke [email or web address] Not available 2022 11:55:49 Maternal Grandmother Diabetes mellitus [email or web address] Not available 2022 11:56:00 Medical History No medical history recorded. Gynecological HistoryNo gynecological history recorded. Obstetrics History GPAL:G 0 P 0 0 0 0 Past Encounters Encounter ID Performer Location Encounter Start Date Encounter Closed Date Diagnosis/Indication Diagnosis SNOMED-CT Code Diagnosis ICD10 Code Diagnosis Note [id number] [facility]OT Lawrence [facility] [address] [place] [address] 12/25/2022 10:39:25 12/25/2022 11:41:06 Adult health examination 793824153 Z00.00 Will get routine labs today. Covid vaccines- declinesFl u vaccine- declinesTe tanus vaccine- recommende d; declined today Pap- 8 years, wnl; updated todayColon oscopy- recommende d age 46Mammogra m- ordered today Recommende d routine eye exams and dental cleanings. Screening mammography 24 931211 Z12.31 Constipation 11184053 K5 9.00 Chronic. She was previously on linzess which worked well but she ran out. Gynecologi c examination 96969271 Z01.419 Abnormal urine odor 8769 003 R82.90 STD panel clean at ER.UA does show nitrites and with other symptoms will treat for UTI. Injury of finger 4410696 8 S69.91XA Ring finger. She cannot extend pip joint past 90 degrees. Has been causing her issues since 2019 after injury. Did PT previously . Would like referral to ortho to get evaluated. Diabetes m ellitus screening 584688276 Z13.1 Hyperlipid emia screening 610265899 Z13.220 Vaginal discharge 565101 006 N89.8 white discharge, denies any other symptoms.W ill do course of fluconazol e for yeast infection. Previous STD screening all negative. [id number] Shane Conley MD [facility] [place] [address] [place] [address] 01/15/2023 11:40:38 01/15/2023 13:00:47 Low back pain 037767513 M54.50 Displaceme nt of lumbar intervertebral disc without myelopathy 33576435 M51.26 L4-5, L5-Si Pain in le ft sacroiliac joint 7296700774 2775499 M53.3 [id number] Simon Corado MD [facility] [place] [address] [place] [address] 01/24/2023 14:53:25 01/24/2023 15:23:07 Pain in right hand 0330034729 71617 M79.641 rt Contractur e of muscle of right hand 5341600033 25627 M62.441 Flexion co ntracture of proximal interphalangeal joint of finger 935038450 M24.549 patient does not appear to have a william injury looks like she has a capsular contractur e on the palmar side does not appear to be a typical boutonnier e there is to be more of a pseudo boutonnier e. She might benefit from release of the check rein ligaments at the PIP and placement of a digit widget dynamic external fixator from hand biomechani cs in [facility] . We typically see a 30% improvemen t after contractur e release which would get her up around 60 which still would not be that good a functional position. With the significan ce of her contractur e I will set her up for [facility] hand clinic to see what their thoughts are and she can have the surgery done over there if they think they can help her at this point 3 years post injury Health Concerns Section Related Observation LastModified by Organization Detai ls LastModified Time None Recorded Concern Status LastModified by Organization Details LastModified Time None Recorded Advance Directives Directive None Recorded Payers Insurance Date Sequence Insurance Name Policy Number Policy Barron Covered Member ID Barron Member ID Guarantor Name 01/30/2023 1 [facility] (POS II) [id number] [id number] Ann Silvana Rivera 12/25/2022 1 [facility] [id number] Ann Pina [facility] [id number] Ann Silvana Rivera Notes Date Note Type Note Provider Name and Address Organization Details Recorded Time 12/25/2022 text/html Pt. here for [facility] physical/well-woman exam. HIWOT Lawrence [address] [address], [place], [address], [facility] [employer] [facility] 12/25/2022 12:52:01 01/15/2023 text/html Patient presents with complicated history. Apparently she was at work up pulling pallets off for furnace is I think had any rate they withdrew the way a fair amount she felt pain predominantly in her back and then later in her neck as well. She was sent to see Dr. Lopez and he has done surgery on her cervical spine unfortunately her back pain persists and she has a recommendation for surgery in that area as well. Part of the reason she is here is that workman's comp has denied her low back clean for the present time and she is hurting enough she would like to try to go through her regular insurance. Shane Conley MD [address], [place], [address], [employer] 01/15/2023 12:58:49 01/24/2023 text/html patient presents today for evaluation she injured her finger back in 2019 developed a 90 degree flexion contracture she injured it while she was dancing at a wedding she tripped and hit the finger against a wall jamming the finger she was placed in a splint by the emergency room was told ago for some therapy and to wear a splint and was not really able to do either due to work issues comes in today referred for first-time us seeing her for her right ring finger flexion contracture Simon Corado MD [address], [place], [address], [employer] 01/24/2023 16:56:19 OBGyn Episode No OBEpisode recorded.
--- OUTSIDE RECORDS SUMMARY | 2025-04-04 13:59 | XMS_ITS | Clinical Summary ---
Author Organization [facility] Address [address] [place] [address] Care Team Providers Care Wharf Worker Name Role Phone Clifton Gan MD Primary Care Provider Dianna Hanks CANVAS BASTER Unavailable [phone] Uday Correa MD Unavailable [phone] Allergies No known active allergies Medications linaCLOtide (LINZESS) 145 mcg capsuleIndication s:chronic idiopathic constipation Take 1 capsule (145 mcg total) by mouth daily 30 capsule 3 4 Active nicotine (NICODERM CQ) [address] 1 patch on the skin daily For 28 days then call for refill or step down patch 28 patch 4 Active ketoconazole (NIZORAL) 2 % shampoo Shampoo daily, leave on for 5-10 minutes, then rinse. 120 mL 2 5 03/10/20 26 Active clobetasoL (OLUX) 0.05 % topical foamIndications:S kin Inflammation Apply topically 2 (two) times a day as needed (for itching) For itching 50 g 1 5 04/09/20 25 Active spironolactone (ALDACTONE) 100 mg tablet Take 1 tablet (100 mg total) by mouth every morning 5 Active cyclobenzaprine (FLEXERIL) 10 mg tabletIndications :Acute left-sided low back pain with left-sided sciatica Take 1 tablet (10 mg total) by mouth 3 (three) times a day as needed for muscle spasms 20 tablet 5 05/30/20 25 Active methylPREDNISolon e (MEDROL DOSEPACK) 4 mg DosepackIndicatio ns:Acute left-sided low back pain with left-sided sciatica Take as directed on package. 21 tablet 5 04/06/20 25 Active HYDROcodone-aceta minophen (NORCO) 5-325 mg per tabletIndications :Pain Take 1 tablet by mouth every 6 (six) hours as needed for pain for up to 7 days 28 tablet 5 04/09/20 25 Active Hospital, Clinic, or Other Facility Administered Medication Ordered Dose Route Frequency Start Date End Date Status ketorolac (TORADOL) 60 mg/2 mL intramuscular injection 60 mgIndications:Acute left-sided low back pain with left-sided sciatica 60 mg IM Once 03/31/2025 03/31/2025 Ended ketorolac (TORADOL) 30 mg/mL injection 30 mgIndications:Spinal stenosis of lumbar region without neurogenic claudication 30 mg IM Once 04/02/2025 04/02/2025 Ended Active Problems Problem Noted Date Diagnosed Date Seborrheic dermatitis of scalp 03/10/2025 Spinal stenosis of lumbar re gion without neurogenic claudication 06/17/2024 Assessment & Plan (07/10/2024 11:01 AM CDT): States she prayed about her back pain and it stopped 2 weeks ago. Does not want to see pain management and do any more steroid injections. It has not helped in the past. Does want to see orthopedic surgery. Will place referral. Lumbar radiculopathy 05/28/2024 Thoracic radiculopathy 05/28/2024 Sacroiliac joint pain 05/28/2024 Excessive and frequent menstruation with regular cycle 01/23/2023 Follicular cyst of ovary 01/23/2023 Status post tubal ligation a t time of delivery, current hospitalization 01/23/2023 Displacement of lumbar inter vertebral disc without myelopathy 01/15/2023 Low back pain 01/15/2023 Abnormal urine odor 12/25/2022 Assessment & Plan (07/10/2024 11:16 AM CDT): Ongoing complaint. Has FASHION CONSULTANT SALES appointment next week. Will recheck a urine culture today. Last abx end of April. Will start septra twice daily We briefly discussed vaginal odor. She denies vaginal discharge. We discussed possibility of BV. We discussed use of boric acid tablets or suppositories [id number]. Discussed use of baking soda baths. Discussed 's use of a more mild soap. Candidiasis of vagina 12/25/2022 Vaginal discharge 12/25/2022 Chronic idiopathic constipation 12/24/2022 Assessment & Plan (07/10/2024 11:06 AM CDT): Chronic, ongoing problem. Takes linzess every 2-3 days. Sometimes takes 2 tablets. Has increased vegetables in diet. Can add miralax prn Resolved Problems Problem Noted Date Diagnosed Date Resolved Date Encounter for medical examin [facility] to establish care 05/21/2024 07/10/2024 Assessment & Plan (05/21/2024 10:14 AM CDT): A(n) initial visit to establish care has been performed today. Ann Rivera is not up to date on screening tests. She is in need of Breast cancer screening, hepatitis B, C , Cholesterol screening, and Cervical cancer screening. She is up to date on needed preventative vaccinations. We discussed healthy lifestyle habits, educational material has been given. Medications reviewed, changes documented as per the medical record and discussed with patient along with risks vs benefits. Return in 6 weeks Contracture of muscle of right hand 01/24/2023 07/10/2024 Pain in right hand 01/24/2023 4 Abdominal pain of multiple sites 01/23/2023 07/10/2024 Influenza due to influenza v irus, type A, human 01/23/2023 07/10/2024 Muscle strain of shoulder region 01/23/2023 07/10/2024 Pain in right knee 01/23/2023 4 Paresthesia of lower lip 01/23/2023 Recurrent otitis media 01/23/202307/10 Sprain of left knee 01/23/2023 07/10/20 24 Sprain of right middle finger 01/23/2023 07/10/2024 Trigger index finger 01/23/2023 024 Pain of left sacroiliac joint 01/15/2023 07/10/2024 Injury of finger 12/25/2022 07/10/2024 Trigger finger of right hand 12/25/2022 07/10/2024 Encounters Date Type Department Care Team Description 04/02/2025 2:30 PM CDT Office Visit [facility] Primary Care at [address] [address] Clifton Gan MD Spinal stenosis of lumbar region without neurogenic claudication (Primary Dx) 03/31/2025 7:00 PM CDT Office Visit [facility] at [address] [phone] Coco Shields NP Acute left-sided low back pain with left-sided sciatica (Primary Dx) 03/10/2025 7:00 AM CDT Office Visit [facility] Care at [address] [address] Simona Carlisle NP Seborrheic dermatitis of scalp (Primary Dx) from Last 3 Months Immunizations Immunization Administration Dates Next Due Influenza, Unspecified 07/10/2024(Deferr ed: Patient Refused),10/22/2023(Deferred: Patient Refused),10/22/2022(Deferred: Patient Refused) Tdap 07/23/2014 Surgical History Surgery Date Site/Laterality Comments CERVICAL DISCECTOMY 12/28/2000 CHOLECYSTECTOMY 10/22/1999 - 10/21/2000 SECTION 10/22/2002 - 10/21/2003 SECTION 10/22/2013 - 10/21/2014 Medical History Medical History Date Comments Depression Family History Medical History Relation Name Comments Diabetes Maternal Grandmother Heart attack Maternal Grandmother Stroke Mother Cancer Other Diabetes Other Heart attack Other Heart disease Other Stroke Other Relation Name Status Comments Maternal Grandmother Mother Other Social History Tobacco Use Types Packs/Day Years Used Date Smoking Tobacco: Every Day Cigarettes 0.3 30.4 Started: 1994 Comments:Smokes about 8 ciga rettes daily AUDIT-C Answer Date Recorded Q1: How often do you have a drink containing alcohol? Never 05/21/2024 Q2: How many drinks containi ng alcohol do you have on a typical day when you are drinking? Patient does not drink Q3: How often do you have si x or more drinks on one occasion? Never 05/21/2024 PHQ-2 Answer Date Recorded PHQ-2 Total Score (If total score is 3 or more points, staff should administer the PHQ-9) 0 03/10/2025 Comments No Sex and Gender Information Value Date Recorded Sex Assigned at Not on file Legal Sex Female 11:35 AM CDT Gender Identity Not on file Sexual Orientation Not on file Occupation Industry Job Start Date Job End Date On disability Not on file Not on file Not on file Obstetrics History Last Filed Vital Signs Vital Sign Reading Time Taken Comments Blood Pressure 118/80 04/02/2025 2:17 PM CDT Pulse 81 04/02/2025 2:17 PM CDT Temperature 36.1 C (96.9 F) 04/02/2025 2:17 PM CDT Respiratory Rate 18 04/02/2025 2:17 PM CDT Oxygen Saturation 98% 04/02/2025 2:17 PM CDT Inhaled Oxygen Concentration - - Weight 80.7 kg (178 lb) 04/02/2025 2:17 PM CDT Height 167.6 cm (5' 6) 04/02/2025 2:17 PM CDT Body Mass Index 28.73 04/02/2025 2:17 PM CDT Plan of Treatment Health Maintenance Due Date Last Done Comments Cervical Cancer Screening 1981 Varicella Vaccines (1 of 2 - 13+ 2-dose series) 1994 Pneumococcal vaccine <65 (1 of 2 - PCV) 2000 DTaP/Tdap/Td Vaccine (2 - Td or Tdap) 07/23/2024 07/23/2014 Regular Well Visit/Exam 18-64 05/21/2025 05/21/2024 Influenza Vaccine (Season Ended) 2025 Breast Cancer Screening-Mammogram 06/27/2025 06/27/2024 Depression Screening 03/10/2026 03/10/2025, 07/10/2024, 05/21/2024 Hepatitis B Screening Completed 05/21/2024 Hepatitis C Screening Completed 05/21/2024 HPV Vaccines Aged Out No longer eligi ble based on patient's age to complete this topic Procedures Procedure Name Priority Date/Time Associated Diagnosis Comments HM MAMMOGRAPHY Routine 06/27/2024 2:07 PM CDT HEPATITIS C ANTIBODY Routine 05/21/2024 10:00 AM CDT Need for hepatitis C screening test from Last 3 Months or Most Recently Relevant to Health Maintenance Results * HM MAMMOGRAPHY (06/27/2024 2:07 PM CDT) [facility] Provider HEALTH MAINTENANCE Final Result * Hepatitis C antibody Blood (05/21/2024 10:00 AM CDT) Hep C Ab Nonreactive Nonreactive Comment: Interpretive Data Nonreactive: Antibodies to HCV not detected. Does NOT exclude the possibility of recent exposure to HCV. Equivocal: Equivocal for HCV antibodies. Supplemental molecular testing will be automatically performed to determine infection status in accordance with current CDC screening recommendations. Reactive: Positive for HCV antibodies. This may represent current or past HCV infection. Supplemental molecular testing will be automatically performed to determine current infection status in accordance with current CDC screening recommendations. Interpretive data was last revised on 2020. Blood 05/21/2024 10:0 0 AM CDT 05/21/2024 3:37 PM CDT Clifton Gan MD LAB MICROBIOLOGY - GENERAL ORDERABLES Edited Result - Final Performing Organization Address City/State/[facility] Phone Number [facility] [address] [address] Department [place] [address] from Last 3 Months or Most Recently Relevant to Health Maintenance Insurance [facility] H[facility]/PPO Address: [facility] [address] [place] [address] [facility] MEDICARE ADVANTAGE [facility] MEDICARE Address: [facility] [address] [place] [address] [facility] MEDICARE ADVANTAGE [facility] MEDICARE Address: [address] [place] [phone] Care Teams Wharf Worker Relationship Specialty Start Date End Date Clifton Gan MD [address] [address] PCP - General Family Medicine 05/21/24 [place] [address] [facility] [address] [place] [address] Nurse Practitioner Container Washer Machine 06/17/24 Uday Correa MD [address] [facility] [address] [facility] [address] [place] [address] Referring Physician Obstetrics and Gynecology 03/10/25
--- OUTSIDE RECORDS SUMMARY | 2025-04-04 13:59 | XMS_ITS | Clinical Summary ---
Author Organization [facility] Address [address] [place] [address] Care Team Providers Care Prefinish Operator Name Role Phone Unavailable Primary Care Provider Unavailabl e Source Comments [facility],non-owned Affiliates and Associated Physician Practices is amultiple site organization consisting of ambulatory clinics and hospital sitesin [place], [place] and [place]. This disclosure is being madepursuant to the Care Everywhere program and may not contain all information available regarding this patient. Last updated 18.[facility] Allergies No known active allergies Medications * Be aware that medications may not be up to date on this document. Alwaysverify current medications with the patient. traMADol (Ultram) 50 MG tablet Take 1 (one) tablet by mouth every 6 hours as needed for Pain Active Active Problems No known active problems Social History Tobacco Use Types Packs/Day Years Used Date Smoking Tobacco: Every Day Cigarettes Smokeless Tobacco: Never Tobacco Cessation:Ready to Q uit: Not Asked Alcohol Use Standard Drinks/Week Comments Yes 0 (1 standard drink = 0.6 oz pur e alcohol) socially Comments No Sex and Gender Information Value Date Recorded Sex Assigned at Not on file Legal Sex Female 9:44 AM CDT Gender Identity Not on file Sexual Orientation Not on file Last Filed Vital Signs Vital Sign Reading Time Taken Comments Blood Pressure 93/52 01/21/2024 1:27 AM CDT Pulse 61 01/21/2024 1:27 AM CDT Temperature 37.1 C (98.7 F) 01/20/2024 9:05 PM CDT Respiratory Rate 14 01/21/2024 1:27 AM CDT Oxygen Saturation 98% 01/21/2024 1:27 AM CDT Inhaled Oxygen Concentration - - Weight 80.3 kg (177 lb) 01/20/2024 9:05 PM CDT Height 167.6 cm (5' 6) 01/20/2024 9:05 PM CDT Body Mass Index 28.57 01/20/2024 9:05 PM CDT Plan of Treatment Health Maintenance Due Date Last Done Comments LIPID TESTING 1981 MAMMOGRAM 1981 PAP SMEAR 1981 HIV SCREENING 1996 HEPATITIS C SCREENING 11/12/1999 DTAP/TDAP/TD VACCINES (1 - Tdap) 2000 HEPATITIS B VACCINE (1 of 3 - 19+ 3-dose series) 2000 PNEUMOCOCCAL VACCINE (1 of 2 - PCV) 2000 COVID-19 VACCINE (1 - 2023-2 5 season) 2024 DEPRESSION SCREENING 10/22/2024 INFLUENZA VACCINE (Season Ended) 2025 SCREENING FOR DIABETES 01/19/2027 01/20/2024 ZOSTER VACCINE (1 of 2) 2031 HIB VACCINE Aged Out No longer eligi ble based on patient's age to complete this topic HPV VACCINE Aged Out No longer eligi ble based on patient's age to complete this topic MENINGOCOCCAL (Group B) VACC INE SHARED DECISION-MAKING Aged Out No longer eligibl e based on patient's age to complete this topic MENINGOCOCCAL GROUPS A/C/Y/W VACCINE Aged Out No longer eligible b ased on patient's age to complete this topic Procedures Procedure Name Priority Date/Time Associated Diagnosis Comments COMPREHENSIVE METABOLIC PANEL STAT 01/20/2024 9:47 PM CDT from Last 3 Months or Most Recently Relevant to Health Maintenance Results * COMPREHENSIVE METABOLIC PANEL (01/20/2024 9:47 PM CDT) BUN 10 7 - 26 mg/dL 01/20/2024 10:29 PM CDT [facility] Creatinine 0.81 0.56 - 0.96 mg/dL 01/20/2024 10:29 PM CDT [facility] Sodium 139 136 - 145 mmol/L 01/20/2024 10:29 PM [facility] Potassium 4.1 3.5 - 4.5 mmol/L 01/20/2024 10:29 PM [facility] Chloride 105 98 - 107 mmol/L 01/20/2024 10:29 PM [facility] CO2 25 22 - 29 mmol/L 01/20/2024 10:29 PM [facility] Glucose 86 70 - 115 mg/dL 01/20/2024 10:29 PM [facility] Calcium 9.6 8.4 - 10.2 mg/dL 01/20/2024 10:29 PM [facility] Protein Total 7.4 6.0 - 8.3 g/dL 01/20/2024 10:29 PM [facility] Albumin 4.1 3.4 - 5.0 g/dL 01/20/2024 10:29 PM [facility] Bilirubin Total 0.6 0.2 - 1.2 mg/dL 01/20/2024 10:29 PM [facility] Alkaline Phosphatase 61 40 - 150 U/L 01/20/2024 10:29 PM [facility] ALT 13 5 - 55 U/L 01/20/2024 10:29 PM [facility] AST 17 5 - 34 U/L 01/20/2024 10:29 PM [facility] Anion Gap 9 6 - 16 01/20/2024 10:29 PM [facility] BUN/Creatinine Ratio 12 7 - 23 01/20/2024 10:29 PM [facility] Osmolality Calculated 286 275 - 295 mOsm/kg 01/20/2024 10:29 PM [facility] Albumin/Globulin Ratio 1.2 1.1 - 2.3 01/20/2024 10:29 PM [facility] eGFR by CKD-EPI >90 >=90 mL/min/1.7 3 m2 01/20/2024 10:29 PM [facility] Blood BLOOD SPECIMEN / Unknown Venipuncture / Unknown 01/20/2024 9:47 PM T 01/20/2024 9:57 PM CDT us Sage Schwartz MD LAB - CHEMISTRY ORDERABLES Fi nal Result [facility] [address] [place] [address], [place] [phone] from Last 3 Months or Most Recently Relevant to Health Maintenance Insurance [facility]
--- OUTSIDE RECORDS SUMMARY | 2025-04-04 13:59 | XMS_ITS | Referral Summary ---
Author Organization [facility] Address [address] [place] [address] Care Team Providers Care Assistant Corporate Controller Name Role Phone Clifton Gan MD Primary Care Provider Dianna Hanks DELINEATOR Unavailable Uday Correa MD Unavailable [phone] Encounters Date Type Department Care Team Description 04/02/2025 2:30 PM CDT Office Visit [facility] Primary Care at [address] [phone] Clifton Gan MD Spinal stenosis of lumbar region without neurogenic claudication (Primary Dx) 03/31/2025 7:00 PM CDT Office Visit [facility] at [address] [phone] Coco Shields NP Acute left-sided low back pain with left-sided sciatica (Primary Dx) 03/10/2025 7:00 AM CDT Office Visit [facility] Primary Care at [address] [phone] Simona Carlisle NP Seborrheic dermatitis of scalp (Primary Dx) from Last 3 Months Allergies No known active allergies Medications linaCLOtide [...] (07/10/2024 11:16 AM CDT): Ongoing complaint. Has WELDER OPERATOR appointment next week. Will recheck a urine culture today. Last abx end of April. Will start septra twice daily We briefly discussed vaginal odor. She denies vaginal discharge. We discussed possibility of BV. We discussed use of boric acid tablets or suppositories [id number]. Discussed use of baking soda baths. Discussed [...] Date Resolved Date Encounter for medical examin [facility] to establish care 05/21/2024 07/10/2024 Assessment & [...] 01/24/2023 07/10/2024 Pain in right hand 01/24/2023 Abdominal pain of multiple sites 01/23/2023 07/10/2024 [...] Trigger finger of right hand 12/25/2022 07/10/2024 Immunizations Immunization Administration Dates Next Due Influenza, Unspecified 07/10/2024(Deferr ed: Patient Refused),10/22/2023(Deferred: Patient Refused),10/22/2022(Deferred: Patient Refused) Tdap 07/23/2014 Social History Tobacco Use Types Packs/Day Years [...] file Not on file Not on file Last Filed Vital Signs [...] 04/02/2025 2:17 PM CDT Plan of Treatment Not on file Procedures Procedure Name Priority Date/Time Associated Diagnosis Comments MAMMOGRAPHY Routine 06/27/2024 2:07 PM CDT HEPATITIS C ANTIBODY Routine 05/21/2024 10:00 AM CDT Need for hepatitis C screening test from Last 3 Months or Most Recently Relevant to Health Maintenance Results * MAMMOGRAPHY (06/27/2024 2:07 PM CDT) Historical Provider HEALTH MAINTENANCE Final Result * Hepatitis [...] 0 AM CDT 05/21/2024 3:37 PM CDT us Clifton Gan MD LAB MICROBIOLOGY - GENERAL ORDERABLES Edited Result - Final Performing Organization Address City/State/[place] [address] [place] Department of Laboratories [place] [phone] from Last 3 Months or Most Recently Relevant to Health Maintenance Insurance [facility] MEDICARE ADVANTAGE [facility] MEDIC[facility] ADVANTAGE Care Teams Assistant Corporate Controller Relationship Specialty Start Date End Date Clifton Gan MD [address] [facility] [address] [place] [address] PCP - General Family Medicine 05/21/24 [place] [address] [facility] [address] [place] [address] Nurse Practitioner Receivable Manager 06/17/24 Uday Correa MD [address] [facility] [address] [facility] [address] [place] [address] Referring Physician Obstetrics and Gynecology 03/10/25
--- NOTE | 2025-04-04 14:41 | ED.BACK ---
HPI - Back Pain/Injury General Chief Complaint: Back Pain/Injury Stated Complaint: back pain Time Seen by Provider: 04/04/25 14:11 Source: patient Mode of arrival: ambulatory Limitations: no limitations History of Present Illness HPI Narrative: This is a 44 year old female that presents to the ER for low back pain. This has been an ongoing issue for her for the last 6 years. She has seen physical therapy, pain management; is currently prescribed steroid taper, muscle relaxer, narcotic pain medication. Had an MRI yesterday ordered by her PCP. Presents for pain control. Pain in her back she reports is manageable. But she is having difficulty with the sharp pains radiating down her left leg. Denies saddle anesthesia, bowel incontinence. Reports she does have some trouble with bladder incontinence, which has been ongoing over the last 3 months. Reports she knows she needs to go, but is unable to make it to the bathroom in time sometimes. Related Data Allergies Allergy/AdvReac Type Severity Reaction Status Date / Time No Known Allergies Allergy Verified 04/04/25 14:00 Review of Systems Review of Systems: All systems reviewed & are unremarkable except as noted in HPI and below PMFSH Past Medical History Medical History Lumbar spondylosis Surgical History Surgical History H/O neck surgery Disc replacement 2020 C3-C4 History of delivery x 2 Family History Family History Mother Cerebrovascular accident Brain aneurysm Social History Social History Smoking packs per day: 0.5 Smoking cigarettes per day: 10.0 Years smoked: 24 Smoking pack-years: 12.00 Smoking status: Former smoker Tobacco type: cigarettes Alcohol intake: former Alcohol use details: occassionally Substance use: never Do You Feel Safe in your Home?: Yes Lack of Transportation: No Lack of Food: Often True Current Housing: I Have Housing Concerned About Future Housing: No Difficulty Paying Gas/Electric Bills: No Difficulty Paying for Meds: No Currently Unemployed: YES Education: Decline to Answer Difficulty w/ Childcare or Family Care: No Living arrangements: with family Occupation/Education: other Gender identity (if verbalized by the patient): Female Spiritual care concerns: No Exam Narrative: GENERAL: Well-appearing, well-nourished, and in no acute distress. HEAD: Normocephalic, atraumatic. EYES: EOMI. CHEST: Clear to auscultation. No respiratory distress. No wheezes rales or rhonchi HEART: Regular rate and rhythm. No murmur heard. Normal peripheral pulses. EXTREMITIES: Normal range of motion. No edema. Strength equal in bilateral lower extremities (5/5). Normal DP pulses SKIN: Warm, dry, no rash. NEURO: No focal deficits. Alert and oriented x3. PSYCH: Normal mood and affect Course Course Emergency Course: patient with improvement after Toradol, Tylenol, Oxycodone. ambulatory in the ED Vital Signs Vital signs: Vital Signs Temperature 97.6 F 04/04/25 13:57 Pulse Rate 78 04/04/25 13:57 Respiratory Rate 20 04/04/25 13:57 Blood Pressure 128/67 04/04/25 13:57 Pulse Oximetry 100 04/04/25 13:57 Oxygen Delivery Room Air 04/04/25 13:57 Temperature 97.6 F 04/04/25 13:57 Pulse Rate 78 04/04/25 13:57 Respiratory Rate 20 04/04/25 13:57 Blood Pressure 128/67 04/04/25 13:57 Pulse Oximetry 100 04/04/25 13:57 Oxygen Delivery Room Air 04/04/25 13:57 MDM - Back Pain/Injury MDM Narrative Medical decision making narrative: Patient presents the emergency department for acute on chronic low back pain. Ongoing over the last 6 years. No new injuries or trauma. She does not have any saddle anesthesia or bowel incontinence. She does endorse some bladder incontinence, which has been going on for several months. Reports that sometimes she is not able to make it to the bathroom in time. She is ambulatory in the ED. Has great strength in her lower extremities. She has been following with her primary. Reports she has had physical therapy and seen pain management. She had an MRI yesterday which showed disc protrusion at L4/L5. Also showing bilateral neuroforaminal narrowing with impingement at L5/S1. Likely source of her symptoms. Patient with improvement after Toradol, Tylenol, Oxycodone. Instructed to have continued close follow-up with her PCP. Will be given information for follow-up with Neurosurgery. She was given warnings to return to the ER Differential Diagnosis Differential diagnosis: Likely lumbar radiculopathy, sciatica and strain of lumbar region Medical Records Attestation: I reviewed the patient's medical records. Medical records narrative: MRI of the lumbar spine (04/03) Impression: Large left paracentral disc protrusion/herniation at L4-L5 with underlying disc bulge. There is bilateral significant neural foraminal narrowing and probable impingement of the descending left-sided L5-S1 level nerve root. Bilateral neural foraminal narrowing at L5-S1, as detailed above. Critical Care Time Critical Care Time Critical Care Time: No Discharge Plan Discharge Clinical Impression: Acute left lumbar radiculopathy Patient Disposition: Home Condition: Improved Instructions: Lumbar Radiculopathy (ED) Additional Instructions: Return to the ER if you experience fever, weakness, numbness in your groin, bowel/bladder incontinence, or any other symptoms that are concerning to you Rest, use ice/heat, take anti-inflammatory (Toradol) or Tylenol as needed for pain as well as muscle relaxer (cyclobenzaprine) as needed for pain. You may also take your prescribed narcotic (hydrocodone) as needed for pain. Lidocaine patch to the area of pain as needed. We will try to start gabapentin for your nerve pain. We will start at the lowest dose and this will need to be increased to the proper dose for you slowly by your PCP Follow up with your primary care doctor and neurosurgery for further care Patient Language: Spanish Prescriptions: New ketorolac 10 mg tablet 10 mg PO Q6H PRN (Reason: pain) Qty: 10 0RF Rx Instructions: maximum total duration of 5 days from all oral, intranasal, or parenteral formulations gabapentin 100 mg capsule 100 mg PO TID 7 Days Qty: 21 0RF No Action norethindrone (contraceptive) 0.35 mg tablet 0.35 mg PO DAILY Qty: 84 3RF Follow-up/Referrals: Elvia,Clifton Bonilla MD [Primary Care Provider] - Karri Yanez MD [Physician] -
[2025-04-04] MEDS: oxyCODONE HCL (*CRX) 5 MG TAB IR PO (15:04)
[2025-04-04] MEDS: ACETAMINOPHEN 500 MG TABLET 1000 MG PO (15:04)
[2025-04-04] MEDS: KETOROLAC 30 MG/ML VIAL (*BKC) IM (15:05)
== END 2025-04-04 16:04 | disposition home or self-care (01) ==
PROVIDERS: Emergency Provider Physician Assistant; PCP Family Medicine
DX: M51.16 Intervertebral disc disorders with radiculopathy, lumbar region (principal); Z87.891 Personal history of nicotine dependence
CPT/HCPCS: 96372; 99283; A9270; J1885

== ENCOUNTER 2025-04-21 10:28 | Emergency (ER) | payer MEDICARE, SELFPAY ==
--- NOTE | ~2025-04-21 | CT_ITS ---
EXAMINATION: CT lumbar spine wo con DATE: 04/21/2025 12:03 INDICATION: Low back pain. Herniated/bulging disc. TECHNIQUE: Computed tomography (CT) of the lumbar spine was performed without intravenous contrast. A utomated exposure control and iterative reconstruction technique were employed. The dose-length produ ct was 968.96 mGy-cm. COMPARISON: Lumbar spine MR dated 04/03/25 FINDINGS: 12 degrees lumbar dextrocurvature. Sagittal alignment is normal. Vertebral body heights are normal. N o fracture. Mild disc height loss at L4-L5 and L5-S1 with disc bulges contributing to mild central ca nal stenosis and moderate bilateral neural foraminal stenosis at both levels. Superimposed left parac entral to subarticular zone disc extrusion at L4-L5 which further narrows the left lateral recess at this level compressing the traversing left L5 nerve root. There is multilevel facet osteoarthritis, m oderate severity bilaterally at L1-L2 and L3-L4 and on the right at T11-T12 and mild at remaining lum bar and lower thoracic levels. Mild osteoarthritis at the bilateral sacroiliac joints. Paravertebral soft tissues are unremarkable. IMPRESSION: 1. Mild lumbar spondylosis most notable for a left paracentral to subarticular zone disc extrusion at L4-L5 which significantly narrows the left lateral recess likely impressing the traversing left L5 n erve root. Correlate clinically for muscle weakness of great toe extension and sensory change of the medial foot and great toe. Reviewed, dictated and finalized at location B. IMPRESSION: 1. Mild lumbar spondylosis most notable for a left paracentral to subarticular zone disc extrusion at L4-L5 which significantly narrows the left lateral reces s likely impressing the traversing left L5 nerve root. Correlate clinically for muscle weakness of great toe extension and sensory change of the medial foot a nd great toe.
[2025-04-21 10:29] VITALS: BP 131/90; PULSE 67; RESP 18; TEMP 36.8; O2SAT 100
--- NOTE | 2025-04-21 11:02 | ED_ITS ---
HPI - Back Pain/Injury General Chief Complaint: Back Pain/Injury Stated Complaint: low back pain radiating left leg numbness Time Seen by Provider: 04/21/25 10:39 Source: patient and old records reviewed Mode of arrival: EMS Limitations: no limitations History of Present Illness HPI Narrative: Patient is a 44 y/o female who presents to the ED via EMS with report of low back pain. Patient reports chronic history of back issues for the past 6 years, reports failed workmen's comp case. States she has seen pain management, neurosurgery, and has been in physical therapy for this pain. Reports she is supposed to see a new neurosurgeon, Dr. Kerns, on 05/17. Patient reports she woke up this morning and could not move. Worsening pain. Pain is present throughout left lower back, radiates down her left lower extremity. She does report intermittent tingling in her left foot. She feels as though she may have over did it and physical therapy yesterday. Patient has not taken anything for pain today. Reports urinary incontinence r/t not being able to get to the bathroom in time. Denies bowel incontinence, saddle anesthesia. MRI lumbar spine 04/03/25: L disc protrusion/hernia/bulge at L4-5 Related Data Allergies Allergy/AdvReac Type Severity Reaction Status Date / Time No Known Allergies Allergy Verified 04/04/25 14:00 Review of Systems Review of Systems: All systems reviewed & are unremarkable except as noted in HPI. All systems reviewed & are unremarkable except as noted in HPI and below PMFSH Past Medical History Medical History Lumbar spondylosis Surgical History Surgical History History of delivery x 2 H/O neck surgery Disc replacement 2020 C3-C4 Family History Family History Mother Cerebrovascular accident Brain aneurysm Social History Social History Smoking packs per day: 0.5 Smoking cigarettes per day: 10.0 Years smoked: 24 Smoking pack-years: 12.00 Smoking status: Former smoker Tobacco type: cigarettes Alcohol intake: former Alcohol use details: occassionally Substance use: never Do You Feel Safe in your Home?: Yes Lack of Transportation: No Lack of Food: Often True Current Housing: I Have Housing Concerned About Future Housing: No Difficulty Paying Gas/Electric Bills: No Difficulty Paying for Meds: No Currently Unemployed: YES Education: Decline to Answer Difficulty w/ Childcare or Family Care: No Living arrangements: with family Occupation/Education: other Gender identity (if verbalized by the patient): Female Spiritual care concerns: No Exam Narrative: GENERAL: Well appearing, well-nourished, non-toxic, in no acute distress. HEAD: Normocephalic, atraumatic. RESPIRATORY: Airway patent, respirations nonlabored. Clear to auscultation bilaterally, no rales, rhonchi, wheezing. CARDIOVASCULAR: Regular rate and rhythm without murmurs, rubs, or gallops. MUSCULOSKELETAL: Moves all extremities. No gross deformities. Diffuse tenderness to palpation throughout left lumbosacral region. No significant midline lumbar spinal tenderness. No palpable bony deformities or step-offs. Sensation is intact throughout back and bilateral lower extremities. 5/5 strength in lower extremities bilaterally, ankles, feet. SKIN: Warm, dry, normal color. NEURO: A&O X3. Speech clear. Cranial nerves II-XII grossly intact. No ataxic movements. PSYCHIATRIC: Appropriate mood and affect. Normal interaction. Course Vital Signs Vital signs: Vital Signs Temperature 98.2 F 04/21/25 10:29 Pulse Rate 67 04/21/25 10:29 Respiratory Rate 18 04/21/25 10:29 Blood Pressure 131/90 04/21/25 10:29 Pulse Oximetry 100 04/21/25 10:29 Oxygen Delivery Room Air 04/21/25 10:29 Temperature 98.2 F 04/21/25 10:29 Pulse Rate 67 04/21/25 10:29 Respiratory Rate 18 04/21/25 10:29 Blood Pressure 131/90 04/21/25 10:29 Pulse Oximetry 100 04/21/25 10:29 Oxygen Delivery Room Air 04/21/25 10:29 MDM - Back Pain/Injury MDM Narrative Medical decision making narrative: CT of the lumbar spine: IMPRESSION: 1. Mild lumbar spondylosis most notable for a left paracentral to subarticular zone disc extrusion at L4-L5 which significantly narrows the left lateral recess likely impressing the traversing left L5 nerve root. This appears very similar to imaging of MRI on 04/03/2025. Patient given oxycodone, Robaxin, Toradol, Tylenol. On re-evaluation, she is feeling much improved. It is much more tolerable. Patient is neurologically intact. No strength discrepancies of lower extremities. Able to flex and extend at toe and ankle. Sensation is intact. Strength is equal in lower extremities. There is no evidence of cord compression or cauda equina. Patient was able to ambulate in the ED with supportive therapy. Feel she is otherwise safe for discharge home at this time to continue pain management, physical therapy, follow-up with neurosurgery at her appointment later this month. Given strict return precautions. She agrees with plan. Discharged in stable condition. Medical Records Attestation: I reviewed the patient's medical records. Imaging Data Attestation: I personally reviewed and interpreted this imaging study as follows: Radiologist's impression: ITS Impressions Lumbar Spine CT 04/21/25 12:38 IMPRESSION: 1. Mild lumbar spondylosis most notable for a left paracentral to subarticular zone disc extrusion at L4-L5 which significantly narrows the left lateral recess likely impressing the traversing left L5 nerve root. Correlate clinically for muscle weakness of great toe extension and sensory change of the medial foot and great toe. Discharge Plan Discharge Clinical Impression: Strain of lumbar region Qualifiers: Encounter type: initial encounter Qualified Code(s): S39.012A - Strain of muscle, fascia and tendon of lower back, initial encounter Lumbosacral spondylosis Qualifiers: Spinal osteoarthritis complication: unspecified spinal osteoarthritis Qualified Code(s): M47.817 - Spondylosis without myelopathy or radiculopathy, lumbosacral region Patient Disposition: Home Condition: Stable Instructions: Antibiotic Form, Acute Low Back Pain (ED), Lumbar Radiculopathy (ED) Additional Instructions: Continue Tylenol and Ibuprofen/aleve around the clock as needed for pain. Use oxycodone as needed for more severe pain. You may use ice/heat, lidocaine patches to area of pain. Take muscle relaxers as needed and prescribed. Recommend taking these at night as they may cause sedation. Do not drive, operate heavy machinery, drink alcohol while on muscle relaxers as this may cause further sedation. Use caution in taking muscle relaxers and oxycodone at the same time as these can both cause sedation. Continue to follow-up with your primary care doctor and neurosurgery for further evaluation. Return to the ED if you experience worsening or severe pain, injury, persistent numbness in groin or legs, weakness of legs, going to the bathroom without meaning to, unable to keep down food or drink, or any other symptoms of concern. Patient Language: Australian Prescriptions: New lidocaine 5 % adhesive patch,medicated 1 patch topical DAILY Qty: 15 0RF Rx Instructions: leave on most painful area for up to 12 hrs methocarbamol 750 mg tablet 1,500 mg PO TID PRN (Reason: muscle spasm) Qty: 20 0RF oxycodone 5 mg tablet 5 mg PO Q6H PRN (Reason: pain) Qty: 20 0RF No Action norethindrone (contraceptive) 0.35 mg tablet 0.35 mg PO DAILY Qty: 84 3RF ketorolac 10 mg tablet 10 mg PO Q6H PRN (Reason: pain) Qty: 10 0RF Rx Instructions: maximum total duration of 5 days from all oral, intranasal, or parenteral formulations gabapentin 100 mg capsule 100 mg PO TID 7 Days Qty: 21 0RF Follow-up/Referrals: Elvia,Clifton Bonilla MD [Primary Care Provider] - Erasto Kerns MD [Physician] - (NEUROSURGERY) Time of Disposition: 15:01
[2025-04-21] MEDS: ACETAMINOPHEN 500 MG TABLET 1000 MG PO (11:44)
[2025-04-21] MEDS: KETOROLAC 30 MG/ML VIAL (*BKC) IV PUSH (11:45)
--- OUTSIDE RECORDS SUMMARY | 2025-04-21 11:52 | XMS_ITS | Encounter Summary ---
Author Organization [facility] Healthcare Address [address] [place] [address] Care Team Providers Care Traffic Ii Manager Name Role Phone Clifton aGn MD Primary Care Provider Dianna Hanks NP Unavailable [phone] Uday Correa MD Unavailable [phone] Irais Rogers MD Unavailable Erasto Kerns MD Unavailable [phone] Reason for Visit * Reason Onset Date Comments Back Pain 04/07/2025 Encounter Details Date Type Department Care Team (Late st Contact Info) Description 04/07/2025 Nurse Triage [facility] Medical [facility] Primary Care at [address] [address] Clifton Gan MD [address] [place] [address] [address] [place] [address] Social History Tobacco Use Types Packs/Day Years Used Date Smoking Tobacco: Every Day Cigarettes 0.3 30.5 Started: 1994 Comments:Smokes about 8 ciga rettes [...] staff should administer the PHQ-9) 0 03/10/2025 Personal Safety Answer Date Recorded Have you ever been in or are you currently in a harmful physical or emotional relationship or is someone making you feel afraid or unsafe? Denies 04/06/2025 Comments No Sex and Gender Information Value Date Recorded Sex Assigned at Not on file Legal Sex Female 11:35 AM CDT Gender Identity Not on file Sexual Orientation Not on file Occupation Industry Job Start Date Job End Date On disability Not on file Not on file Not on file documented as of this encounter Miscellaneous Notes * Telephone Encounter - Nidhi Case MA - 04/07/2025 4:38 PM CDT Spoke to pt, pt has an appointment with Dr Kerns on 04/09/25 * Telephone Encounter - Mel Stephens RN - 04/07/2025 8:35 AM CDT Reason for Conversation Back Pain Background JOVANY 04/06/25 cc: Severe low back pain x 2 weeks. Seen in ED 04/06/25 at [facility] Hx: lumbar radiculopathy, thoracic radiculopathy, spinal stenosis of lumbar region, displacement oflumbar intervertebral disc w/o myelopathy I spoke to patient's (on HIPPA). Patient having severe back pain x 2 weeks. She was instructed to go to ED if pain got worse. She did get a toradol shot and steroids in an [facility] and it did not help. She did complete an MRI. Seen in the office yesterday. MRI bulging disc L4-L5. He recommended neurosurgeon. They spent 9 hours in the ED yesterday hoping to get admitted. They discharged her with Toradol injection and sent home stating it wasn't an emergency. Her pain level is 10+/10. is requesting call back from Dr. Gan with recommendations on how to proceed now as the surgery didn't happen as they expected it would and she is suffering in the meantime. She cannot walk very wel l at all. Every little bit of movement causes extreme pain. Patient's spouse has a hearing with social security at 10am so call before then to spouses number or if around that time then contact the patient's cell. Disposition Go to ED Now Reason for Disposition Numbness (loss of sensation) in groin or rectal area Protocols Used Back [id number] * Telephone Encounter - Mel Stephens RN - 04/07/2025 8:05 AM CDT Regarding: severe low back pain ----- Message from Vira S sent at 04/07/2025 8:05 AM CDT ----- Symptom Based Call Chief Complaint(s): severe low back pain Duration: 2 weeks What type of symptom(s) is the patient experiencing? Red Flag. Is the patient concerned they are experiencing a medical emergency requiring an ambulance? No Additional Comments: Patient went to [facility] to be admitted, after 9 hours, she was sent home.She is still in severe pain. Hung is on HIPAA. Does message need to be routed? Yes-Action Needed ## The message may be incomplete. It was sent as a result of a timeout. ## ----- Message from Vira S sent at 04/07/2025 8:05 AM CDT ----- Symptom Based Call Chief Complaint(s): severe low back pain Duration: 2 weeks What type of symptom(s) is the patient experiencing? Red Flag. Is the patient concerned they are experiencing a medical emergency requiring an ambulance? No Additional Comments: Patient went to [facility] to be admitted, after 9 hours, she was sent home.She is still in severe pain. Hung is on HIPAA. Does message need to be routed? Yes-Action Needed ----- Message from Vira S sent at 04/07/2025 8:04 AM CDT ----- Symptom Based Call Chief Complaint(s): severe low back pain Duration: 2 weeks What type of symptom(s) is the patient experiencing? Red Flag. Is the patient concerned they are experiencing a medical emergency requiring an ambulance? No Additional Comments: Patient went to [facility] to be admitted, after 9 hours, she was sent home.She is still in severe pain. Hung is on HIPAA. Does message need to be routed? Yes-Action Needed documented in this encounter Plan of Treatment Not on file documented as of this encounter Visit Diagnoses Not on filedocumented in this encounter Care Teams Traffic Ii Manager Relationship Specialty Start Date End Date Clifton Gan MD [address] [place] [address] PCP - General Family Medicine 05/21/24 [place] [address] [facility] [address] [place] [address] Nurse Practitioner Detective Investigator 06/17/24 Uday Correa MD [address] [place] [address] Referring Physician Obstetrics and Gynecology 03/10/25 Irais Rogers MD [address] [place] [address] Referring Physician Pain Management 04/06/25 Erasto Kerns MD [address] [facility] [address] [place] [address] Consulting Physician Neurosurgery 04/15/25 documented as of this encounter
--- OUTSIDE RECORDS SUMMARY | 2025-04-21 11:52 | XMS_ITS | Clinical Summary ---
Author Organization [facility] Address [address] [place] [address] Care Team Providers Care Hydro Pneumatic Tester Name Role Phone Unavailable Primary Care Provider Unavailabl e Source Comments [facility],non-owned Affiliates and Associated Physician Practices is amultiple site organization consisting of ambulatory clinics and hospital sitesin [place], [place], [place] and [place]. This disclosure is being madepursuant to the Care Everywhere program and may not contain all information available regarding this patient. Last updated 18.[facility] Allergies No known active allergies Medications * [...] Done Comments LIPID TESTING 1981 MAMMOGRAM 1981 HIV SCREENING 1996 HEPATITIS C SCREENING 11/12/1999 DTAP/TDAP/TD VACCINES (1 - Tdap) 2000 HEPATITIS B VACCINE (1 of 3 - 19+ 3-dose series) 2000 PNEUMOCOCCAL VACCINE (1 of 2 - PCV) 2000 PAP SMEAR 2002 COVID-19 VACCINE (1 - 2023-2 5 season) [...] - 26 mg/dL 01/20/2024 10:29 PM CDT [facility] Creatinine 0.81 0.56 - 0.96 mg/dL 01/20/2024 10:29 PM CDT [facility] Sodium 139 136 - 145 mmol/L 01/20/2024 10:29 PM [facility] Potassium 4.1 3.5 - 4.5 mmol/L 01/20/2024 10:29 PM [facility] Chloride 105 98 - 107 mmol/L 01/20/2024 10:29 PM [facility] CO2 25 22 - 29 mmol/L 01/20/2024 10:29 PM [facility] Glucose 86 70 - 115 mg/dL 01/20/2024 10:29 PM [facility] Calcium 9.6 8.4 - 10.2 mg/dL 01/20/2024 10:29 PM [facility] Protein Total 7.4 6.0 - 8.3 g/dL 01/20/2024 10:29 PM [facility] Albumin 4.1 3.4 - 5.0 g/dL 01/20/2024 10:29 PM [facility] Bilirubin Total 0.6 0.2 - 1.2 mg/dL 01/20/2024 10:29 PM [facility] Alkaline Phosphatase 61 40 - 150 U/L 01/20/2024 10:29 PM [facility] ALT 13 5 - 55 U/L 01/20/2024 10:29 PM [facility] AST 17 5 - 34 U/L 01/20/2024 10:29 PM [facility] Anion Gap 9 6 - 16 01/20/2024 10:29 PM [facility] BUN/Creatinine Ratio 12 7 - 23 01/20/2024 10:29 PM [facility] Osmolality Calculated 286 275 - 295 mOsm/kg 01/20/2024 10:29 PM [facility] Albumin/Globulin Ratio 1.2 1.1 - 2.3 01/20/2024 10:29 PM [facility] eGFR by CKD-EPI >90 >=90 mL/min/1.7 3 m2 01/20/2024 10:29 PM [facility] Blood BLOOD SPECIMEN / Unknown Venipuncture / Unknown 01/20/2024 9:47 PM T 01/20/2024 9:57 PM CDT us Sage Schwartz MD LAB - CHEMISTRY ORDERABLES Fi nal Result [facility] [address] [place] [address], [place] [phone] from Last 3 Months or Most Recently Relevant to Health Maintenance Insurance [facility]
--- OUTSIDE RECORDS SUMMARY | 2025-04-21 11:52 | XMS_ITS | Clinical Summary ---
Author Organization [facility] at the [facility] Address [address] [place] [address] Care Team Providers Care Deicer Inspector Pneumatic Name Role Phone Clifton Gan MD Primary Care Provider [phone] Dianna Hanks NP Unavailable [phone] Uday Correa MD Unavailable [phone] Irais Rogers MD Unavailable Erasto Kerns MD Unavailable [phone] Allergies No known active allergies Medications linaCLOtide (LINZESS) 145 mcg capsuleIndicatio ns:chronic idiopathic constipation Take 1 capsule (145 mcg total) by mouth daily 30 capsule 3 05/21/20 24 Active nicotine (NICODERM CQ) [address] 1 patch on the skin daily For 28 days then call for refill or step down patch 28 patch 07/10/20 24 Active ketoconazole (NIZORAL) 2 % shampoo Shampoo daily, leave on for 5-10 minutes, then rinse. 120 mL 2 03/10/20 25 026 Active spironolactone (ALDACTONE) 100 mg tablet Take 1 tablet (100 mg total) by mouth every morning 03/30/20 25 Active cyclobenzaprine (FLEXERIL) 10 mg tabletIndication s:Acute left-sided low back pain with left-sided sciatica Take 1 tablet (10 mg total) by mouth 3 (three) times a day as needed for muscle spasms 20 tablet 03/31/20 25 025 Active ketorolac (TORADOL) 10 mg tablet 04/04/20 25 Active gabapentin (NEURONTIN) 100 mg capsule Take 2 capsules (200 mg total) by mouth 3 (three) times a day 180 capsule 04/09/20 25 025 Active clobetasoL (OLUX) 0.05 % topical foamIndications: Skin Inflammation Apply topically 2 (two) times a day as needed (for itching) For itching 50 g 1 03/10/20 25 025 methylPREDNISolo ne (MEDROL DOSEPACK) 4 mg DosepackIndicati ons:Acute left-sided low back pain with left-sided sciatica Take as directed on package. 21 tablet 03/31/20 25 025 HYDROcodone-acet aminophen (NORCO) 5-325 mg per tabletIndication s:Pain Take 1 tablet by mouth every 6 (six) hours as needed for pain for up to 7 days 28 tablet 04/02/20 25 025 Discontinued gabapentin (NEURONTIN) 100 mg capsule TAKE 1 CAPSULE BY MOUTH THREE TIMES DAILY FOR 1 WEEK 04/04/20 25 025 Discontinued HYDROcodone-acet aminophen (NORCO) 5-325 mg per tabletIndication s:Pain Take 2 tablets by mouth every 6 (six) hours as needed for pain for up to 7 days 04/06/20 25 025 Hospital, Clinic, or Other Facility Administered Medication Ordered Dose Route Frequency Start Date End Date Status ketorolac (TORADOL) 60 mg/2 mL intramuscular injection 60 mgIndications:Acute left-sided low back pain with left-sided sciatica 60 mg IM Once 03/31/2025 03/31/2025 Ended ketorolac (TORADOL) 30 mg/mL injection 30 mgIndications:Spinal stenosis of lumbar region without neurogenic claudication 30 mg IM Once 04/02/2025 04/02/2025 Ended ketorolac (TORADOL) 30 mg/mL injection 30 mgIndications:Herniated nucleus pulposus, L4-5 left 30 mg IM Once 04/06/2025 04/06/20 25 Ended Active Problems Problem Noted Date Diagnosed Date Lumbar disc herniation with radiculopathy 2024 Seborrheic dermatitis of scalp 03/10/2025 Spinal stenosis [...] (07/10/2024 11:16 AM CDT): Ongoing complaint. Has ALARM SIGNAL OPERATOR appointment next week. Will recheck a urine culture today. Last abx end of April. Will start septra twice daily We briefly discussed vaginal odor. She denies vaginal discharge. We discussed possibility of BV. We discussed use of boric acid tablets or suppositories [id number]. Discussed use of baking soda baths. Discussed [...] Date Resolved Date Encounter for medical examin [facility] to establish care 05/21/2024 07/10/2024 Assessment & [...] Encounters Date Type Department Care Team Description 04/21/2025 Nurse Triage [facility] Primary Care at [address] [address] Yakelin Cotto RN 04/21/2025 Telephone [facility] at [address] [place] [address] Jose D Elaine, PT Appointment (Excused - 1st Ill - calling ambulance) 04/17/2025 10:45 AM CDT Therapy [facility] at [address] [place] [address] Delia Minor, PT Lumbar disc herniation with radiculopathy (Primary Dx) 04/15/2025 Telephone [facility] at [address] [place] [address] Corey Luna, PT Appointment 04/14/2025 9:50 AM CDT Ancillary Procedure [facility] [address] [facility] [address] [place] [address] Lumbar disc herniation with radiculopathy; Lumbar radiculopathy 04/14/2025 7:57 AM CDT - 04/14/2025 11:59 PM CDT Hospital Encounter [facility] [address] [place] [address] Reza Goodman MD Lumbar radiculopathy (Primary Dx); Lumbar disc herniation with radiculopathy; Spinal stenosis of lumbar region without neurogenic claudication Discharge Disposition: Discharge to home or self care 04/13/2025 4:30 PM CDT Therapy [facility] at [address] [place] [address] Simon Gresham PTA Lumbar disc herniation with radiculopathy (Primary Dx) 04/13/2025 Telephone [facility] Primary Care at [address] [address] Clifton Gan MD Medical Question/Miscellane ous 04/10/2025 8:00 AM CDT Therapy [facility] at [address] [place] [address] Jose D Elaine PT Lumbar disc herniation with radiculopathy 04/10/2025 Nurse Triage [facility] Primary Care at [address] [address] Clifton Gan MD 04/10/2025 Plan of Care Documentation [facility] at [address] [place] [address] 04/09/2025 9:00 AM CDT Office Visit [facility] [address] [facility] [address] [place] [address] Odilia Peterson NP Lumbar disc herniation with radiculopathy (Primary Dx) 04/09/2025 8:33 AM CDT - 04/09/2025 11:59 PM CDT Hospital Encounter [facility] [address] [place] [address] Discharge Disposition: Discharge to home or self care 04/09/2025 Telephone [facility] Primary Care at [address] [address] Clifton Gan MD Medical Question/Miscellane ous 04/07/2025 Telephone [facility] [address] [facility] [address] [place] [address] Betzaida White 04/07/2025 Nurse Triage [facility] Primary Care at [address] [address] Clifton Gan MD 04/06/2025 5:29 PM CDT - 04/06/2025 8:03 PM CDT Emergency [facility] Emergency Department [address] [place] [address] Dinesh Obrien MD Chronic left-sided low back pain with left-sided sciatica (Primary Dx); Lumbar radiculopathy Discharge Disposition: Discharge to home or self care 04/06/2025 10:30 AM CDT Office Visit [facility] Primary Care at [address] [address] Clifton Gan MD Herniated nucleus pulposus, L4-5 left (Primary Dx); Cauda equina syndrome (HCC) 04/06/2025 Nurse Triage [facility] Primary Care at [address] [address] Clifton Gan MD 04/06/2025 Orders Only [facility] Primary Care at [address] [address] Clifton Gan MD Degenerative disc disease, lumbar 04/06/2025 Telephone [facility] Primary Care at [address] [phone] Clifton Gan MD warm transfer 04/02/2025 2:30 PM CDT Office Visit [facility] Care at [address] [phone] Clifton Gan MD Spinal stenosis of lumbar region without neurogenic claudication (Primary Dx) 03/31/2025 7:00 PM CDT Office Visit [facility] Care at [address] [address] Coco Shields NP Acute left-sided low back pain with left-sided sciatica (Primary Dx) 03/10/2025 7:00 AM CDT Office Visit [facility] Care at [address] [phone] Simona Carlisle NP Seborrheic dermatitis of scalp [...] Sign Reading Time Taken Comments Blood Pressure 122/89 04/14/2025 8:09 AM CDT Pulse 72 04/14/2025 8:09 AM CDT Temperature 36.6 C (97.8 F) 04/09/2025 8:56 AM CDT Respiratory Rate 17 04/14/2025 8:09 AM CDT Oxygen Saturation 100% 04/14/2025 8:09 AM CDT Inhaled Oxygen Concentration - - Weight 81.1 kg (178 lb 12.8 oz) 04/09/2025 8:56 AM CDT Height 167.6 cm (5' 6) 04/09/2025 8:56 AM CDT Body Mass Index 28.86 04/09/2025 8:56 AM CDT Plan of Treatment Health Maintenance Due Date Last Done Comments Cervical Cancer Screening 1981 Varicella Vaccines (1 of 2 - 13+ 2-dose series) 1994 Pneumococcal vaccine <65 (1 of 2 - PCV) 2000 DTaP/Tdap/Td Vaccine (2 - Td or Tdap) 07/23/2024 07/23/2014 Regular Well Visit/Exam 18-64 05/21/2025 05/21/2024 Influenza Vaccine (#1) 2025 Breast Cancer Screening-Mammogram 06/27/2025 06/27/2024 Depression Screening 03/10/2026 03/10/2025, 07/10/2024, 05/21/2024 Hepatitis B Screening Completed 05/21/2024 Hepatitis C Screening Completed 05/21/2024 HPV Vaccines Aged Out No longer eligi ble based on patient's age to complete this topic Procedures Procedure Name Priority Date/Time Associated Diagnosis Comments PAIN MGMT IMAGING LUMBAR/CAUDAL EPIDURAL STEROID INJ Schedule Routine, Read Routine (OP Routine) 04/14/2025 10:08 AM CDT Lumbar disc herniation with radiculopathy Lumbar radiculopathy NEURO MR OUTSIDE REFERENCE Routine 04/09/2025 8:33 AM CDT HM MAMMOGRAPHY Routine 06/27/2024 2:07 PM CDT HEPATITIS C ANTIBODY Routine 05/21/2024 10:00 AM CDT Need for hepatitis C screening test from Last 3 Months or Most Recently Relevant to Health Maintenance Results * Imaging Lumbar/Caudal Epidural Steroid INJ (02293) (04/14/2025 10:08 AM CDT) Narrative RAD_PACS_ - 04/14/2025 10:09 AM CDT The images from this study are not interpreted by Radiology. Please refer to the physician's procedure / OR operative note. us Reza Goodman MD IMG PAIN MGMT PROCEDU RES Final Result Performing Organization Address [facility] Co de Phone Number RAD_PACS_[facility] * Neuro MR Outside Reference (04/09/2025 8:33 AM CDT) Impressions RAD_PACS_[facility] - 04/09/2025 8:33 AM CDT These images are for Reference purposes only and have not been reviewed by [facility] Radiology. There will be no report generated by a [facility] Radiologist. Narrative RAD_PACS_[facility] - 04/09/2025 8:33 AM CDT EXAMINATION: Images For Reference Purposes Only us Danielito Brown MD IMG MRI PROCEDURES Final Resu lt Performing Organization Address [facility] Co de Phone Number RAD_PACS_[facility] * HM MAMMOGRAPHY (06/27/2024 2:07 PM CDT) Historical Provider [...] - GENERAL ORDERABLES Edited Result - Final [facility] [address] [place] [address] from Last 3 Months or Most Recently Relevant to Health Maintenance Insurance [facility] CHOICE PLUS [facility] MEDICARE ADVANTAGE [facility] MEDICARE ADVANTAGE Care Teams Deicer Inspector Pneumatic Relationship Specialty Start Date End Date Clifton Gan MD [address] [facility] [address] [place] [address] PCP - General Family Medicine 05/21/24 [place] [address] [address] [facility] [address] [place] [address] Nurse Practitioner Lead Auditor 06/17/24 Uday Correa MD [address] [facility] [address] [place] [address] Referring Physician Obstetrics and Gynecology 03/10/25 Irias Rogers MD [address] [place] [address] Referring Physician Pain Management 04/06/25 Erasto Kerns MD [address] [address] Consulting Physician Neurosurgery 04/15/25
--- OUTSIDE RECORDS SUMMARY | 2025-04-21 11:52 | XMS_ITS | Encounter Summary ---
Author Organization [facility] Healthcare Address [address] [place] [address] Care Team Providers Care Bindery Assistant Name Role Phone Cilfton Gan MD Primary Care Provider [phone] Dianna Hanks INSPECTOR TYPE Unavailable [phone] Uday Correa MD Unavailable [phone] Irais Rogers MD Unavailable Erasto Kerns MD Unavailable [phone] Reason for Visit * Reason Onset Date Comments Appointment 04/21/2025 Excused - 1st [place] - calling ambulance Encounter Details Date Type Department Care Team (Late st Contact Info) Description 04/21/2025 Telephone [facility] at [address] [address] Jose D Elaine, PT Appointment (Excused - 1st Ill - calling ambulance) Social History Tobacco Use Types Packs/Day Years [...] encounter Miscellaneous Notes * Telephone Encounter - Smooth Pradhan - 04/21/2025 8:40 AM CDT SAME DAY CANCELLATION - (Less than 24 hours) Cancellation Date: 04/21 Appointment Date: 04/21 Reason Given: Can't move. Calling ambulance Action Taken: No Action Required Cosigned by Jose D Elaine, PT at 04/21/2025 10:04 AM CDT documented in this encounter Plan of Treatment Not on file documented as of this encounter Visit Diagnoses Diagnosis Lumbar disc herniation with radiculopathy- Primary Displacement of lumbar intervertebral disc without myelopathy documented in this encounter Care Teams Bindery Assistant Relationship Specialty Start Date End Date Clifton Gan MD [address] [place] [address] PCP - General Family Medicine 05/21/24 [place] [address] [place] [address] Nurse Practitioner Lean Manufacturing Leader 06/17/24 Uday Correa MD [address] [place] [address] Referring Physician Obstetrics and Gynecology 03/10/25 Irais Rogers MD [address] [place] [address] Referring Physician Pain Management 04/06/25 Erasto Kerns MD [address] [address] Consulting Physician Neurosurgery 04/15/25 documented as of this encounter
--- OUTSIDE RECORDS SUMMARY | 2025-04-21 11:52 | XMS_ITS | Encounter Summary ---
Author Organization [facility] Healthcare Address [address] [place] [address] Care Team Providers Care Trimmer Tailer Name Role Phone Clifton Gan MD Primary Care Provider Dianna Hanks NP Unavailable [phone] Uday Correa MD Unavailable [phone] Irais Rogers MD Unavailable Erasto Kerns MD Unavailable [phone] Reason for Visit * Reason Onset Date Comments Back Pain 04/21/2025 Encounter Details Date Type Department Care Team (Late st Contact Info) Description 04/21/2025 Nurse Triage [facility] Medical Group Primary Care at [address] [address] Yakelin Cotto RN Social History Tobacco Use Types Packs/Day Years [...] encounter Miscellaneous Notes * Telephone Encounter - Yakelin Cotto RN - 04/21/2025 10:05 AM CDT Reason for Conversation Back Pain Background Pt spouse (HIPAA verified) Called, he reports pt is currently being loaded by ems to go to ED at this time. Advised pt to callback with new or worsening symptoms. Disposition No Contact Calls Reason for Disposition Patient already left for the hospital/clinic No Initial Assessment on file. No Additional Information on file. Protocols Used No Contact or Duplicate Contact [id number] * Telephone Encounter - Yakelin Cotto RN - 04/21/2025 9:36 AM CDT Regarding: severe back pain, cannot walk ----- Message from Leonor Vila sent at 04/21/2025 9:33 AM CDT ----- Symptom Based Call Chief Complaint(s): severe back pain, cannot walk Duration: today What type of symptom(s) is the patient experiencing? Red Flag. Is the patient concerned they are experiencing a medical emergency requiring an ambulance? No Additional Comments: Patient's , Hung, on HIPAA said back issues are reoccurring, however, today her pain is so severe she has to crawl to get around. Does message need to be routed? Yes-Action Needed documented in this encounter Plan of Treatment Not on file documented as of this encounter Visit Diagnoses Not on filedocumented in this encounter Care Teams Trimmer Tailer Relationship Specialty Start Date End Date Clifton Gan MD [address] [place] [address] PCP - General Family Medicine 05/21/24 [place] [address] [address] [place] [address] Nurse Practitioner Cook Vegetable 06/17/24 Uday Correa MD [address] [place] [address] Referring Physician Obstetrics and Gynecology 03/10/25 Irais Rogers MD [address] [place] [address] Referring Physician Pain Management 04/06/25 Erasto Kerns MD [address] [facility] [address] [place] [address] Consulting Physician Neurosurgery 04/15/25 documented as of this encounter
--- OUTSIDE RECORDS SUMMARY | 2025-04-21 11:52 | XMS_ITS | Encounter Summary ---
Author Organization [facility] Healthcare Address [address] [place] [address] Care Team Providers Care Supervisor Calibration Name Role Phone Clifton Gan MD Primary Care Provider Dianna Hanks NP Unavailable [phone] Uday Correa MD Unavailable [phone] Irais Rogers MD Unavailable Erasto Kerns MD Unavailable [phone] Reason for Visit * Reason Onset Date Comments warm transfer 04/06/2025 Encounter Details Date Type Department Care Team (Late st Contact Info) Description 04/06/2025 Telephone [facility] Medical [facility] Primary Care at [address] [address] Clifton Gan MD [address] [place] [address] [address] [place] [address] warm transfer Social History Tobacco Use Types Packs/Day Years [...] encounter Miscellaneous Notes * Telephone Encounter - Valeria Rod MA - 04/06/2025 9:07 AM CDT Reason for Warm Transfer: Other (please explain): Patient's wanted the patient to take his appointment. Practice Accepted the Warm Transfer? Yes Additional Comments If YES above, and no barriers. documented in this encounter Plan of Treatment Not on file documented as of this encounter Visit Diagnoses Not on filedocumented in this encounter Care Teams Supervisor Calibration Relationship Specialty Start Date End Date Clifton Gan MD [address] [facility] [address] [place] [address] PCP - General Family Medicine 05/21/24 [place] [address] [facility] [address] [place] [address] Nurse Practitioner Shot Bagger 06/17/24 Uday Correa MD [address] [facility] [address] [place] [address] Referring Physician Obstetrics and Gynecology 03/10/25 Irais Rogers MD [address] [place] [address] Referring Physician Pain Management 04/06/25 Erasto Kerns MD [address] [address] Consulting Physician Neurosurgery 04/15/25 documented as of this encounter
--- OUTSIDE RECORDS SUMMARY | 2025-04-21 11:52 | XMS_ITS | Referral Summary ---
Author Organization [facility] Office Center Address [address] [place] [address] Care Team Providers Care Computer Meteorologist Name Role Phone Clifton Gan MD Primary Care Provider Dianna Hanks ROUGH RICE TENDER Unavailable Uday Correa MD Unavailable Irais Rogers MD Unavailable Erasto Kerns MD Unavailable [phone] Encounters Date Type Department Care Team Description 04/21/2025 Nurse Triage [facility] Primary Care at [address] [address] Yakelin Cotto RN 04/21/2025 Telephone [facility] Rehabilitation Services at [address] [address] Jose D Elaine, PT Appointment (Excused - 1st Ill - calling ambulance) 04/17/2025 10:45 AM CDT Therapy [facility] at [address] [place] [address] Delia Minor, PT Lumbar disc herniation with radiculopathy (Primary Dx) 04/15/2025 Telephone [facility] Services at [address] [address] Corey Luna, PT Appointment 04/14/2025 9:50 AM CDT Ancillary Procedure [facility] [address] [facility] [address] [place] [address] Lumbar disc herniation with radiculopathy; Lumbar radiculopathy 04/14/2025 7:57 AM CDT - 04/14/2025 11:59 PM CDT Hospital Encounter [facility] [address] [place] [address] Reza Goodman MD Lumbar radiculopathy (Primary Dx); Lumbar disc herniation with radiculopathy; Spinal stenosis of lumbar region without neurogenic claudication Discharge Disposition: Discharge to home or self care 04/13/2025 Telephone [facility] Primary Care at [address] [address] Clifton Gan MD Medical Question/Miscellane ous 04/13/2025 4:30 PM CDT Therapy [facility] at [address] [address] Simon Gresham PTA Lumbar disc herniation with radiculopathy (Primary Dx) 04/10/2025 Nurse Triage [facility] Primary Care at [address] [address] Clifton Gan MD 04/10/2025 Plan of Care Documentation [facility] at [address] [address] 04/10/2025 8:00 AM CDT Therapy [facility] at [address] [address] Jose D Elaine, PT Lumbar disc herniation with radiculopathy 04/09/2025 Telephone [facility] Primary Care at [address] [address] Clifton Gan MD Medical Question/Miscellane ous 04/09/2025 8:33 AM CDT - 04/09/2025 11:59 PM CDT Hospital Encounter [facility] [address] [place] [address] Discharge Disposition: Discharge to home or self care 04/09/2025 9:00 AM CDT Office Visit [facility] [address] [facility] [address] [place] [address] Odilia Peterson NP Lumbar disc herniation with radiculopathy (Primary Dx) 04/07/2025 Telephone [facility] [address] [place] [address] 2 [address] [place] [address] Betzaida White 04/07/2025 Nurse Triage [facility] Primary Care at [address] [phone] Clifton Gan MD 04/06/2025 Nurse Triage [facility] Primary Care at [address] [phone] Clifton Gan MD 04/06/2025 5:29 PM CDT - 04/06/2025 8:03 PM CDT Emergency [facility] Emergency Department [address] [place] [address] Dinesh Obrien MD Chronic left-sided low back pain with left-sided sciatica (Primary Dx); Lumbar radiculopathy Discharge Disposition: Discharge to home or self care 04/06/2025 Orders Only [facility] Primary Care at [address] [phone] Clifton Gan MD Degenerative disc disease, lumbar 04/06/2025 10:30 AM CDT Office Visit [facility] Primary Care at [address] [phone] Clifton Gan MD Herniated nucleus pulposus, L4-5 left (Primary Dx); Cauda equina syndrome (HCC) 04/06/2025 Telephone [facility] Primary Care at [address] [phone] Clifton Gan MD warm transfer 04/02/2025 2:30 PM CDT Office Visit [facility] Primary Care at [address] [phone] Clifton Gan MD Spinal stenosis of lumbar region without neurogenic claudication (Primary Dx) 03/31/2025 7:00 PM CDT Office Visit [facility] at [address] [address] Coco Shields NP Acute left-sided low back pain with left-sided sciatica (Primary Dx) 03/10/2025 7:00 AM CDT Office Visit [facility] Primary Care at [address] [address] Simona Carlisle NP Seborrheic dermatitis [...] pain for up to 7 days 04/06/20 025 Hospital, Clinic, or Other Facility Administered [...] (07/10/2024 11:16 AM CDT): Ongoing complaint. Has SEWAGE PLANT ATTENDANT appointment next week. Will recheck a urine culture today. Last abx end of April. Will start septra twice daily We briefly discussed vaginal odor. She denies vaginal discharge. We discussed possibility of BV. We discussed use of boric acid tablets or suppositories [id number]. Discussed use of baking soda baths. Discussed [...] 04/09/2025 8:56 AM CDT Plan of Treatment Not on file [...] Results * Imaging Lumbar/Caudal Epidural Steroid INJ (16398) (04/14/2025 10:08 AM CDT) Narrative [facility]_PACS_[facility] - 04/14/2025 10:09 AM CDT The images from this study are not interpreted by Radiology. Please refer to the physician's procedure / OR operative note. us Reza Goodman MD IMG PAIN MGMT PROCEDU RES Final Result Performing Organization Address [facility] Co de Phone Number RAD_PACS_[facility] * Neuro MR Outside Reference (04/09/2025 8:33 AM CDT) Impressions RAD_PACIke_[facility] - 04/09/2025 8:33 AM CDT These images are for Reference purposes only and have not been reviewed by [facility]. There will be no report generated by a [facility] Radiologist. Narrative RAD_PACS_[facility] - 04/09/2025 8:33 AM CDT EXAMINATION: Images For Reference Purposes Only Danielito Brown MD IMG MRI PROCEDURES Final Resu lt Performing Organization Address [facility] de Phone Number RAD_PACS_[facility] * HM MAMMOGRAPHY [...] Edited Result - Final Performing Organization Address [facility] Co de Phone Number [place] [address] Becky Guerrero Department [place] [address] from Last 3 Months or Most Recently Relevant to Health Maintenance Insurance [facility] MEDICARE ADVANTAGE [facility] MEDICARE ADVANTAGE Care Teams Computer Meteorologist Relationship Specialty Start Date End Date Clifton Gan MD [address] [place] [address] PCP - General Family Medicine 05/21/24 [place] [address] [facility] [address] [place] [address] Nurse Practitioner Sales Technician Home Theater 06/17/24 Uday Correa MD [address] [facility] [address] [place] [address] Referring Physician Obstetrics and Gynecology 03/10/25 Irais Rogers MD [address] [place] [address] Referring Physician Pain Management 04/06/25 Erasto Kerns MD [address] [facility] 3 [place] [address] Consulting Physician Neurosurgery 04/15/25
--- OUTSIDE RECORDS SUMMARY | 2025-04-21 11:52 | XMS_ITS | Data Portability ---
Author Organization [place] [facility], Main Office Address [address] [place] [address] Care Team Providers Care Waiter/Waitress Captain Name Role Phone MICHAEL MEDINA Primary Care Provider MICHAEL MEDINA Referring Provider Assessment Encounter Date Assessment Date Assessment LastModified [...] like an opinion from a spine surgeon [facility] surgery would be helpful as she does have reasonable sized disc. We will also refer her for that and will send her to [facility] for spine surgery consultation. I have discussed [...] recorded. Lab lipid panel, serum 2022 023 [facility], [address] [place], [address], 3 23:29:35 pap, LB + HR HPV 2022 023 [email or web address] [facility], [address] [place], [address], 3 08:44:38 urinalysis , dipstick 2022 023 [email or web address] [facility] [address], [place], [address], 3 11:45:23 CBC 2022 023 [facility], [address] [place], [address], 3 23:29:35 CMP, serum or plasma 2022 023 [facility], [address] [place], [address], 3 23:29:35 HbA1c (hemoglobi n A1c), blood 2022 023 [facility], [address] [place], [address], 3 08:00:44 Referral hand surgeon referral - 90 degree contractur e off R-ring finger, please review and call patient to schedule 2022 023 [email or web address] 1 [facility] Of Orthopedics, [address] [facility], [place], [address], 3 10:03:58 orthopedic spine surgeon referral 2022 023 JACQUIE Yan MD, [address], [place], [address], 3 13:25:16 hand surgeon referral 2022 023 [email or web address] Simon Corado MD, [address] [place], [address], 20:36:07 Procedures injection/ aspiration joint/burs a (PROC) - in office procedure, administer ed by provider 2022 023 [email or web address] In-Office Order, Internal Use Only DO Not Attach Compendium DO Not Attach Compendium, Do Not Delete/merge, [address] 12:23:22 Surgeries None recorded. Imaging XR, hand, 3 or more view 2022 023 [email or web address] [facility], [address] [facility] [address], [place], [address], 16:56:24 MAMMO, screening, digital, bilateral 2022 023 [email or web address] [facility], [address] Sures[address] Irizarry, [address] [address], [place], [address], 3 08:10:08 Medication Orders Kenalog 10 mg/mL suspension for injection 2022 023 [facility] [address] [facility] #[id number], [address], [place], [id number], 3 12:34:46 ropivacain e (PF) 5 mg/mL (0.5 %) injection solution 2022 023 [facility] [address] [facility] #11155, [address], [place], [id number], 3 12:34:46 prednisone 20 mg tablet 2022 023 [facility] [address] [facility] #80870, [address], [place], [id number], 3 12:34:46 Macrobid 100 mg capsule 2022 023 [facility], [address], [place], [id number], 3 12:51:23 fluconazol e 150 mg tablet 2022 023 [facility], [address], [place], [id number], 3 11:22:04 Linzess 145 mcg capsule 2022 023 [facility]404, [address], [place], [id number], 3 11:05:12 Patient TargetsNo targets recorded. Patient [...] negative glendy/ l) Negati ve Not Available [address], [place], [address], 12/25/2022 11:02:06 12/26/19 23 12/25/2022 urina lysis , dipst ick Nitrite (reference rage: negative mg/dl) positi ve Not Available [address], [place], [address], 12/25/2022 11:02:06 12/26/19 23 12/25/2022 urina lysis , dipst ick Urobilinogen (reference range: 0.2-1 mg/dl) 0.2 Not Available [address], [place], [address], 12/25/2022 11:02:06 12/26/19 23 12/25/2022 urina lysis , dipst ick Protein (reference range: negative mg/dl) Negati ve Not Available [address], [place], [address], 12/25/2022 11:02:06 12/26/19 23 12/25/2022 urina lysis , dipst ick pH (reference range: 5-7) 5.5 Not Available [address], [place], [address], 12/25/2022 11:02:06 12/26/19 23 12/25/2022 urina lysis , dipst ick Blood (reference range: negative Galdino/ l) Small Not Available [address], [place], [address], 12/25/2022 11:02:06 12/26/19 23 12/25/2022 urina lysis , dipst ick Specific [place] (reference range: 1.005-1.030) 1.020 Not Available [address], [place], [address], 12/25/2022 11:02:06 12/26/19 23 12/25/2022 urina lysis , dipst ick Ketone (reference range: negative mg/dl) Negati ve Not Available [address], [place], [address], 12/25/2022 11:02:06 12/26/19 23 12/25/2022 urina lysis , dipst ick Bilirubin (reference range: negative mg/dl) Negati ve Not Available [address], [place], [address], 12/25/2022 11:02:06 12/26/19 23 12/25/2022 urina lysis , dipst ick Glucose (reference range: negative mg/dl) Negati ve Not Available [address], [place], [address], 12/25/2022 11:02:06 12/26/19 23 12/25/2022 urina lysis , dipst ick Appearance Clear Not Available [address], [place], [address], 12/25/2022 11:02:06 12/26/19 23 12/25/2022 urina lysis , dipst ick Color Yellow Not Available [address], [place], [address], 12/25/2022 11:02:06 01/16/20 23 MRI, lumba r spine , w/o contr ast No observ ation record ed. [email or web address] Not Available 2022 12:29:57 01/25/20 23 XR, hand, 3 or more view No observ ation record ed. [email or web address] [facility] [address] [facility] [address], [place], [address], 01/24/2023 16:54:16 07/30/20 23 07/30/2023 MRI, lumba r spine , w/o contr ast No observ ation record ed. [email or web address] [facility] [address] [facility] [address], [place], [address], 07/30/2023 09:24:00 10/30/19 24 10/30/2023 favian KNOWLES No observ ation record ed. [address] [facility] [address], [place], [address], 10/31/2023 08:28:11 Result Notes None recorded. Problems Name Problem SNOMED Code Status Onset Date Resolution Date Notes Provider Name and Address Organization Details Recorded Time Chronic idiopathic constipatio n 56343767 Active 2022 [facility] Lawrence [address], [place], [address], [employer] 3 10:58:00 Constipatio n 16599700 Active 2022 [facility] [address], [place], [address], [employer] 3 10:58:05 Abnormal urine odor 2417448 Active 2022 [facility] [address], [place], [address], [employer] 3 11:02:18 Trigger finger of right hand 1847422173450 9101 Active 2022 [facility] [address], [place], [address], [employer] 3 11:02:49 Injury of finger 81365527 Active 2022 [facility] [address], [place], [address], [facility] 3 11:04:04 Vaginal discharge 247106651 Active 2022 [facility] [address], [place], [address], [employer] 3 11:21:39 Candidiasis of vagina 23808226 Active 2022 [facility] [address], [place], [address], [facility] [employer] [facility] 3 11:21:45 Low back pain 225584243 Active 2022 Deb Saqib RODRICK null, [facility] [employer] [facility] 3 11:56:37 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 86961382 Active 2022 Shane Conley MD [address], [place], [address], [facility] [employer] [facility] 3 12:56:32 Pain in left sacroiliac joint 7238577212795 9102 Active 2022 Shane Conley MD [address], [place], [address], [facility] [employer] [facility] 3 12:57:04 Pain in right hand 2164470244653 09 Active 2022 Valeria Emanuel RODRICK null, [facility] [employer] [facility] 3 14:56:14 Contracture of muscle of right hand 8715147404085 08 Active 2022 Evelyn Jewel null, [facility] [employer] [facility] 3 15:20:41 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 Procedures Surgical History Date Name Laterality Status Provider Name and Address Organization Details Recorded Time 3 Ortho - Cortisone Injection completed Shane Conley MD [address], [place], [address], [facility] [employer] [facility] 01/15/2023 12:54:35 Imaging Results None recorded. Procedure [...] 20 mg by injection route. 2022 active [facility]: 0003- 0494- 20 Not Available Not [...] Address Organization Details Last Updated DateTime 3 07286.2 6 g 28.4 kg/m2 167.64 cm 98.3 [degF] 83 /min 100 % 100 % 118 mm[Hg] 72 mm[Hg] Anibal Flores [facility] [employer] [facility] 10:51:04 Date Recorded Body height Body mass index (BMI) Body weight Provider Name and Address Organization Details Last Updated DateTime 01/15/2023 167.64 cm 28.9 kg/m2 46334.03 g Deb Cerrato [facility] [employer] [facility] [employer] [facility] 01/15/2023 11:55:18 Date Recorded Body height Body mass index (BMI) Body weight Provider Name and Address Organization Details Last Updated DateTime 01/24/2023 167.64 cm 28.6 kg/m2 85235.29 g Valeria Emanuel [facility] [employer] [facility] [employer] [facility] 01/24/2023 14:55:11 Social History None recorded. Functional Status None recorded. Mental Status None recorded. Family History Relationship Description Onset Age of this Age Resolved Age Notes LastModified by Organization Details LastModified Time Mother Family history of stroke [email or web address] Not available 2022 11:55:49 Maternal Grandmother Diabetes mellitus [email or web address] Not available 2022 11:56:00 Medical History No medical history recorded. Gynecological HistoryNo gynecological history recorded. Obstetrics History GPAL:G 0 P 0 0 0 0 Past Encounters Encounter ID Performer Location Encounter Start Date Encounter Closed Date Diagnosis/Indication Diagnosis SNOMED-CT Code Diagnosis ICD10 Code Diagnosis Note [id number] [facility] [address] [place] [address] 12/25/2022 10:39:25 12/25/2022 11:41:06 Adult health examination 993006408 Z00.00 Will get routine labs today. Covid vaccines- declinesFl u vaccine- declinesTe tanus vaccine- recommende d; declined today Pap- 8 years, wnl; updated todayColon oscopy- recommende d age 46Mammogra m- ordered today Recommende d routine eye exams and dental cleanings. Screening mammography 24 440358 Z12.31 Constipation 33421795 K5 9.00 Chronic. She was previously on linzess which worked well but she ran out. Gynecologi c examination 21269566 Z01.419 Abnormal urine odor 8769 003 R82.90 STD panel clean at ER.UA does show nitrites and with other symptoms will treat for UTI. Injury of finger 7788297 8 S69.91XA Ring finger. She cannot extend pip joint past 90 degrees. Has been causing her issues since 2019 after injury. Did PT previously . Would like referral to ortho to get evaluated. Diabetes m ellitus screening 784278628 Z13.1 Hyperlipid emia screening 431867892 Z13.220 Vaginal discharge 881831 006 N89.8 white discharge, denies any other symptoms.W ill do course of fluconazol e for yeast infection. Previous STD screening all negative. [id number] Shane Conley MD [facility] [address] [place] [address] 01/15/2023 11:40:38 01/15/2023 13:00:47 Low back pain 030701000 M54.50 Displaceme nt of lumbar intervertebral disc without myelopathy 62920402 M51.26 L4-5, L5-Si Pain in le ft sacroiliac joint 4252864639 2436796 M53.3 [id number] Simon Corado MD [facility] [address] [place] [address] 01/24/2023 14:53:25 01/24/2023 15:23:07 Pain in right hand 4268949846 49028 M79.641 rt Contractur e of muscle of right hand 4456774543 85158 M62.441 Flexion co ntracture of proximal interphalangeal joint of finger 165847061 M24.549 patient does not appear to have [...] fixator from hand biomechani cs in [facility] . We typically see a 30% improvemen t after contractur e release which would get her up around 60 which still would not be that good a functional position. With the significan ce of her contractur e I will set her up for [facility] hand clinic to see what their thoughts [...] Barron Member ID Guarantor Name 01/30/2023 1 [facility] (POS II) Hung Rivera [id number] Ann Silvana Rivera 12/25/2022 1 [facility] [id number] Ann Silvana [facility] [id number] Ann Silvana Rivera Notes Date Note Type Note Provider Name and Address Organization Details Recorded Time 12/25/2022 text/html Pt. here for [facility] physical/well-woman exam. [facility] [address] [facility] [address], [place], [address], [facility] 12/25/2022 12:52:01 01/15/2023 text/html Patient presents with [...] her regular insurance. Shane Conley MD [address], [place], [address], FUJIAN HAIYUAN 01/15/2023 12:58:49 01/24/2023 text/html patient presents today [...] finger flexion contracture Simon Corado MD [address], [place], [address], FUJIAN HAIYUAN 01/24/2023 16:56:19 OBGyn Episode No OBEpisode recorded.
[2025-04-21] MEDS: oxyCODONE HCL (*CRX) 5 MG TAB IR PO (12:13)
== END 2025-04-21 15:30 | disposition home or self-care (01) ==
PROVIDERS: Emergency Provider Physician Assistant; PCP Family Medicine
DX: S39.012A Strain of muscle, fascia and tendon of lower back, initial encounter (principal); M51.26 Other intervertebral disc displacement, lumbar region; M48.061 Spinal stenosis, lumbar region without neurogenic claudication; M47.816 Spondylosis without myelopathy or radiculopathy, lumbar region; G89.29 Other chronic pain; Z87.891 Personal history of nicotine dependence; X50.9XXA Other and unspecified overexertion or strenuous movements or postures, initial encounter
CPT/HCPCS: 72131; 96374; 99284; A9270; J1885

== ENCOUNTER 2025-05-24 11:01 | Emergency (ER) | payer MEDICARE, SELFPAY ==
[2025-05-24 11:02] VITALS: BP 144/72; PULSE 73; RESP 16; TEMP 36.3; O2SAT 98
--- OUTSIDE RECORDS SUMMARY | 2025-05-24 11:03 | XMS_ITS | Referral Summary ---
Author Organization [facility] (formerly [facility] at [facility] Address [address] [place] [address] Care Team Providers Care Florist Name Role Phone Clifton Gan MD Primary Care Provider Dianna Hanks NP Unavailable Uday Correa MD Unavailable Irais Rogers MD Unavailable Erasto Kerns MD Unavailable [phone] Encounters Date Type Department Care Team Description 05/06/2025 Telephone [facility] [id number] [place] [address] 2 [address] [place] [address] Danielito Brown MD 04/30/2025 Telephone [facility] Primary Care at [address] [place] [place] [address] Clifton Gan MD Medical Records Request 04/28/2025 2:14 PM CDT - 04/28/2025 11:59 PM CDT Hospital Encounter [facility] Diagnostic Imaging [address] [place], [place] [id number] Lumbar disc herniation with radiculopathy Discharge Disposition: Discharge to home or self care 04/28/2025 12:45 PM CDT - 04/28/2025 11:59 PM CDT Hospital Encounter [facility] [address] [place], [place] [id number] Reza Goodman MD Spinal stenosis of lumbar region without neurogenic claudication; Lumbar radiculopathy Discharge Disposition: Discharge to home or self care 04/27/2025 6:55 AM CDT - 04/27/2025 11:59 PM CDT Hospital Encounter [facility] [address] [place] [address] Matti Marrero NP Lumbar radiculopathy (Primary Dx); Lumbar disc herniation with radiculopathy; Spinal stenosis of lumbar region without neurogenic claudication Discharge Disposition: Discharge to home or self care 04/23/2025 11:20 AM CDT - 04/23/2025 11:59 PM CDT Hospital Encounter [facility]) [address] [place] [address] Discharge Disposition: Discharge to home or self care 04/23/2025 11:00 AM CDT Office Visit [facility] [address] [place] [address] 2 [address] [place] [address] Danielito Brown MD Lumbar radiculopathy [M54.16] (Primary Dx) 04/21/2025 Telephone [facility] [address] [place] [address] Melita Resendez 04/21/2025 Telephone [facility] Rehabilitation Services at [address] [place] [address] Edelmira Hayes PT Cancel (Patient call in today because she is at the hospital in a lot of pain, and doctor states therapy is not helping right now pt request to be Discharged, and her doctor will check the system for her appt on 04/23/2025) 04/21/2025 Orders Only [facility] [address] [place] [address] 2 [address] [place] [address] Odilia Peterson NP Lumbar disc herniation with radiculopathy (Primary Dx) 04/21/2025 Nurse Triage [facility] Primary Care at [address] [address] Yakelin Cotto RN 04/21/2025 Telephone [facility] Rehabilitation Services at [address] [address] Jose D Elaine, PT Appointment (Excused - 1st Ill - calling ambulance) 04/17/2025 10:45 AM CDT Therapy [facility] Services at [address] [address] Delia Minor, PT Lumbar disc herniation with radiculopathy (Primary Dx) 04/15/2025 Telephone [facility] Rehabilitation Services at [address] [address] Corey Luna, PT Appointment 04/14/2025 9:50 AM CDT Ancillary Procedure [facility] [address] [place] [address], [place] [address] Lumbar disc herniation with radiculopathy; Lumbar radiculopathy 04/14/2025 7:57 AM CDT - 04/14/2025 11:59 PM CDT Hospital Encounter [facility] [address] [place] [address] Reza Goodman MD Lumbar radiculopathy (Primary Dx); Lumbar disc herniation with radiculopathy; Spinal stenosis of lumbar region without neurogenic claudication Discharge Disposition: Discharge to home or self care 04/13/2025 Telephone [facility] Primary Care at [address] [phone] Clifton Gan MD Medical Question/Miscellane ous 04/13/2025 4:30 PM CDT Therapy [facility] Rehabilitation Services at [address] [address] Simon G[place]am PTA Lumbar disc herniation with radiculopathy (Primary Dx) 04/10/2025 Nurse Triage [facility] Primary Care at [address] [phone] Clifton Gan MD 04/10/2025 Plan of Care Documentation [facility] Rehabilitation Services at [address] [place] [address] 04/10/2025 8:00 AM CDT Therapy [facility] Rehabilitation Services at [address] [place] [address] Jose D Elaine PT Lumbar disc herniation with radiculopathy 04/09/2025 Telephone [facility] Primary Care at [address] [phone] Clifton Gan MD Medical Question/Miscellane ous 04/09/2025 8:33 AM CDT - 04/09/2025 11:59 PM CDT Hospital Encounter [facility] ([facility]) [address] [place] [address] Discharge Disposition: Discharge to home or self care 04/09/2025 9:00 AM CDT Office Visit [facility] [address] [place] [address] 2 [address] [place] [address] Odilia Peterson, GANESH Lumbar disc herniation with radiculopathy (Primary Dx) 04/07/2025 Telephone [facility] [address] [place] [address] 2 [address] [place] [address] Betzaida White 04/07/2025 Nurse Triage [facility] Primary Care at [address] [phone] Clifton Gan MD 04/06/2025 Nurse Triage [facility] Primary Care at [address] [phone] Clifton Gan MD 04/06/2025 5:29 PM CDT - 04/06/2025 8:03 PM CDT Emergency [facility] Emergency Department [address] [place] [address] Dinesh Obrien MD Chronic left-sided low back pain with left-sided sciatica (Primary Dx); Lumbar radiculopathy Discharge Disposition: Discharge to home or self care 04/06/2025 Orders Only [facility] Primary Care at [address] [phone] Clifton Gan MD Degenerative disc disease, lumbar 04/06/2025 10:30 AM CDT Office Visit [facility] Care at [address] [phone] Clifton Gan MD Herniated nucleus pulposus, L4-5 left (Primary Dx); Cauda equina syndrome (HCC) 04/06/2025 Telephone [facility] Primary Care at [address] [phone] Clifton Gan MD warm transfer 04/02/2025 2:30 PM CDT Office Visit [facility] Care at [address] [phone] Clifton Gan MD Spinal stenosis of lumbar region without neurogenic claudication (Primary Dx) 03/31/2025 7:00 PM CDT Office Visit [facility] Care at [address] [phone] Coco Shields NP Acute left-sided low back pain with left-sided sciatica (Primary Dx) 03/10/2025 7:00 AM CDT Office Visit [facility] Care at [address] [phone] Simona Carlisle NP Seborrheic dermatitis [...] 120 mL 2 5 03/10/20 26 Active spironolactone (ALDACTONE) 100 mg tablet Take 1 tablet (100 mg total) by mouth every morning 5 Active cyclobenzaprine (FLEXERIL) 10 mg tabletIndication s:Acute left-sided low back pain with left-sided sciatica Take 1 tablet (10 mg total) by mouth 3 (three) times a day as needed for muscle spasms 20 tablet 5 05/30/20 25 Active Additional Information Patient not taking.Reported on 04/27/2025 ketorolac (TORADOL) 10 mg tablet 5 Active gabapentin (NEURONTIN) 100 mg capsule Take 2 capsules (200 mg total) by mouth 3 (three) times a day 180 capsule 5 Active Additional Information Patient not taking.Reported on 04/27/2025 methocarbamoL (ROBAXIN) 750 mg tablet TAKE 2 TABLETS BY MOUTH THREE TIMES DAILY NEEDED FOR MUSCLE SPASM 5 Active oxyCODONE (ROXICODONE) 5 mg immediate release tablet Take by mouth every 6 (six) hours as needed 5 Active Active Problems Problem Noted Date Diagnosed Date [...] (07/10/2024 11:16 AM CDT): Ongoing complaint. Has BOX TOE CEMENTER appointment next week. Will recheck a urine culture today. Last abx end of April. Will start septra twice daily We briefly discussed vaginal odor. She denies vaginal discharge. We discussed possibility of BV. We discussed use of boric acid tablets or suppositories [id number]. Discussed use of baking soda baths. Discussed [...] Date Encounter for medical examin [facility] to establish care 05/21/2024 07/10/2024 Assessment [...] 01/23/2023 07/10/2024 Pain in right knee 01/23/2023 Paresthesia of lower lip 01/23/2023 Recurrent otitis [...] Date Smoking Tobacco: Every Day Cigarettes 0.3 30.6 Started: 1994 Comments:Smokes about 8 ciga rettes [...] Sign Reading Time Taken Comments Blood Pressure 125/79 04/28/2025 1:47 PM CDT Pulse 73 04/28/2025 1:47 PM CDT Temperature 37.3 C (99.2 F) 04/28/2025 12:59 PM CDT Respiratory Rate 18 04/28/2025 1:47 PM CDT Oxygen Saturation 99% 04/28/2025 1:47 PM CDT Inhaled Oxygen Concentration - - Weight 82.1 kg (181 lb 1.6 oz) 04/23/2025 10:59 AM CDT Height 167.6 cm (5' 6) 04/23/2025 10:59 AM CDT Body Mass Index 29.23 04/23/2025 10:59 AM CDT Plan of Treatment Not on file Procedures Procedure Name Priority Date/Time Associated Diagnosis Comments PAIN MGMT IMAGING LUMBAR/SACRAL SELECTIVE NERVE ROOT INJ (TFE) LEFT Schedule Routine, Read Routine (OP Routine) 04/28/2025 4:34 PM CDT Spinal stenosis of lumbar region without neurogenic claudication Lumbar radiculopathy XR LUMBAR SPINE AP LAT FLEX EX Schedule Routine, Read Routine (OP Routine) 04/28/2025 2:29 PM CDT Lumbar disc herniation with radiculopathy NEURO CT OUTSIDE REFERENCE Routine 04/23/2025 11:20 AM CDT PAIN MGMT IMAGING LUMBAR/CAUDAL EPIDURAL STEROID INJ [...] Relevant to Health Maintenance Results * Imaging Lumbar/Sacral Selective Nerve Root INJ (TFE) Left (71178) (04/28/2025 4:34 PM CDT) Narrative RAD_PACS_[facility] - 04/28/2025 4:38 PM CDT The images from this study are not interpreted by Radiology. Please refer to the physician's procedure / OR operative note. us Reza Goodman MD IMG PAIN MGMT PROCEDU RES Final Result RAD_PACS_[facility] * XR Spine Lumbar Ap Lat Flex Ext min 4 Views (04/28/2025 2:29 PM CDT) Anatomical Region Laterality Modality L-spine N/A Computed Radiogr aphy 04/29/2025 7:56 AM CDT Impressions 04/29/2025 7:56 AM CDT No significant abnormality. Electronically signed by: Kina Pérez M.D. Narrative 04/29/2025 7:56 AM CDT EXAMINATION: XR SPINE LUMBAR AP LAT FLEX EXT MIN 4 VIEWS HISTORY: The patient is a 44-year-old female who presents with low back pain. TECHNIQUE: 4 views including views in flexion and extension. FINDINGS: Alignment normal and no fracture or dislocation is seen. The disc spaces and pedicles are intact. Sacroiliac joints normal. No subluxation of vertebral bodies is noted in relation to each other in the flexed and extended position. Procedure Note Kina Pérez MD - 04/29/2025 EXAMINATION: XR SPINE LUMBAR AP LAT FLEX EXT MIN 4 VIEWS HISTORY: The patient is a 44-year-old female who presents with low back pain. TECHNIQUE: 4 views including views in flexion and extension. FINDINGS: Alignment normal and no fracture or dislocation is seen. The disc spaces and pedicles are intact. Sacroiliac joints normal. No subluxation of vertebral bodies is noted in relation to each other in the flexed and extended position. IMPRESSION: No significant abnormality. Electronically signed by: Kina Pérez M.D. Odilia Peterson MOTORS AND CONTROLS TESTER IMG XR PROCEDURES Final Result * Neuro CT Outside Reference (04/23/2025 11:20 AM CDT) Impressions TERRIPACS_[facility] - 04/23/2025 11:20 AM CDT These images are for Reference purposes only and have not been reviewed by [facility]. There will be no report generated by a [facility] Radiologist. Narrative RAD_PACS_[facility] - 04/23/2025 11:20 AM CDT EXAMINATION: Images For Reference Purposes Only Danielito Brown MD IMG CT PROCEDURES Final Resul t Performing Organization Address [facility] Co de Phone Number RAD_PACS[facility] * Imaging Lumbar/Caudal Epidural Steroid INJ ([id number]) (04/14/2025 10:08 AM CDT) Narrative [facility] - 04/14/2025 10:09 AM CDT The images from this study are not interpreted by Radiology. Please refer to the physician's procedure / OR operative note. Reza Goodman MD IMG PAIN MGMT PROCEDU RES Final Result Performing Organization Address [facility] de Phone Number RAD_PACS_[facility] * Neuro MR Outside Reference (04/09/2025 8:33 AM CDT) Impressions [facility] - 04/09/2025 8:33 AM CDT These images are for Reference purposes only and have not been reviewed by [facility]. There will be no report generated by a [facility] Radiologist. Narrative [facility] - 04/09/2025 8:33 AM CDT EXAMINATION: Images For Reference Purposes Only Danielito Brown MD IMG MRI PROCEDURES Final Resu lt Performing Organization Address [facility] de Phone Number RAD_[facility] * HM [...] - GENERAL ORDERABLES [place] - [place] [address] Becky Guerrero Department [place] [address] from Last 3 Months or Most Recently Relevant to Health Maintenance Insurance [facility] MEDICARE ADVANTAGE [facility] MEDICARE ADVANTAGE Care Teams Florist Relationship Specialty Start Date End Date Clifton Gan MD [address] [facility] [address] [place] [address] PCP - General Family Medicine 05/21/24 [place] [address] [facility] [address] [place] [address] Nurse Practitioner Chemical Recovery Operator 06/17/24 Uday Correa MD [address] [facility] [address] [place] [address] Referring Physician Obstetrics and Gynecology 03/10/25 Irais Rogers MD [address] [place] [address] Referring Physician Pain Management 04/06/25 Erasto Kerns MD [address] [facility] 3 [place] [address] Consulting Physician Neurosurgery 04/15/25
--- OUTSIDE RECORDS SUMMARY | 2025-05-24 11:03 | XMS_ITS | Encounter Summary ---
Author Organization [facility] Healthcare Address [address] [place] [address] Care Team Providers Care Picker Operator Name Role Phone Clifton Gan MD Primary Care Provider Dianna Hanks NP Unavailable [phone] Uday Correa MD Unavailable [phone] Irais Rogers MD Unavailable Erasto Kerns MD Unavailable [phone] Reason for Visit * Reason Onset Date Comments Back Pain 04/07/2025 Encounter Details Date Type Department Care Team (Late st Contact Info) Description 04/07/[address] [facility] Medical Group Primary Care at [address] [phone] Clifton Gan MD [address] [place] [address] [address] [place] [address] Social History Tobacco Use Types [...] 2 weeks. Seen in ED 04/06/25 at [facility] Hx: lumbar radiculopathy, thoracic radiculopathy, spinal stenosis of lumbar region, displacement oflumbar intervertebral disc w/o myelopathy I spoke to patient's (on HIPPA). Patient having severe back pain x 2 weeks. She was instructed to go to ED if pain got worse. She did get a toradol shot and steroids in an [facility] and it did not help. She did [...] groin or rectal area Protocols Used Back Oqqp-[id number]-GC * Telephone Encounter - Mel Stephens RN [...] ambulance? No Additional Comments: Patient went to [facility] to be admitted, after 9 hours, she [...] ambulance? No Additional Comments: Patient went to [facility] to be admitted, after 9 hours, she [...] ambulance? No Additional Comments: Patient went to [facility] to be admitted, after 9 hours, she was sent home.She is still in severe pain. Hung is on HIPAA. Does message need to be routed? Yes-Action Needed documented in this encounter Plan of Treatment Not on file documented as of this encounter Visit Diagnoses Not on filedocumented in this encounter Care Teams Picker Operator Relationship Specialty Start Date End Date Clifton Gan MD [address] [place] [address] PCP - General Family Medicine 05/21/24 [place] [address] [facility] [address] [place] [address] Nurse Practitioner Special Projects Manager 06/17/24 Uday Correa MD [address] [place] [address] Referring Physician Obstetrics and Gynecology 03/10/25 Irais Rogers MD [address] [place] [address] Referring Physician Pain Management 04/06/25 Erasto Kerns MD [address] [facility] 3 [place] [address] Consulting Physician Neurosurgery 04/15/25 documented as of this encounter
--- OUTSIDE RECORDS SUMMARY | 2025-05-24 11:03 | XMS_ITS | Clinical Summary ---
Author Organization [facility] Address [address] [place] [address] Care Team Providers Care Behavioral Technician Name Role Phone Unavailable Primary Care Provider Unavailabl e Source Comments [facility],non-owned Affiliates and Associated Physician Practices is amultiple site organization consisting of ambulatory clinics and hospital sitesin [place], [place], [place] and [place]. This disclosure is being madepursuant to the Care Everywhere program and may not contain all information available regarding this patient. Last updated 18.[facility] Allergies No known active allergies Medications * [...] 2 - PCV) 2000 PAP SMEAR 2002 HPV VACCINE (1 - 3-dose SCDM series) 2008 COVID-19 VACCINE (1 - 2023-2 5 season) 2024 DEPRESSION SCREENING 10/22/2024 INFLUENZA VACCINE (#1) 2025 SCREENING FOR DIABETES 01/19/2027 01/20/2024 ZOSTER [...] - 26 mg/dL 01/20/2024 10:29 PM CDT [facility] Creatinine 0.81 0.56 - 0.96 mg/dL 01/20/2024 10:29 PM CDT [facility] Sodium 139 136 - 145 mmol/L 01/20/2024 10:29 PM [facility] Potassium 4.1 3.5 - 4.5 mmol/L 01/20/2024 10:29 PM [facility] Chloride 105 98 - 107 mmol/L 01/20/2024 10:29 PM [facility] CO2 25 22 - 29 mmol/L 01/20/2024 10:29 PM [facility] Glucose 86 70 - 115 mg/dL 01/20/2024 10:29 PM [facility] Calcium 9.6 8.4 - 10.2 mg/dL 01/20/2024 10:29 PM [facility] Protein Total 7.4 6.0 - 8.3 g/dL 01/20/2024 10:29 PM [facility] Albumin 4.1 3.4 - 5.0 g/dL 01/20/2024 10:29 PM [facility] Bilirubin Total 0.6 0.2 - 1.2 mg/dL 01/20/2024 10:29 PM [facility] Alkaline Phosphatase 61 40 - 150 U/L 01/20/2024 10:29 PM [facility] ALT 13 5 - 55 U/L 01/20/2024 10:29 PM [facility] AST 17 5 - 34 U/L 01/20/2024 10:29 PM [facility] Anion Gap 9 6 - 16 01/20/2024 10:29 PM [facility] BUN/Creatinine Ratio 12 7 - 23 01/20/2024 10:29 PM [facility] Osmolality Calculated 286 275 - 295 mOsm/kg 01/20/2024 10:29 PM [facility] Albumin/Globulin Ratio 1.2 1.1 - 2.3 01/20/2024 10:29 PM [facility] eGFR by CKD-EPI >90 >=90 mL/min/1.7 3 m2 01/20/2024 10:29 PM [facility] Blood BLOOD SPECIMEN / Unknown Venipuncture / Unknown 01/20/2024 9:47 PM CDT 01/20/2024 9:57 PM CDT us Sage Schawrtz MD LAB - CHEMISTRY ORDERABLES Fi nal Result [facility] [address] [place] [address], [place] [phone] from Last 3 Months or Most Recently Relevant to Health Maintenance Insurance [facility]
--- OUTSIDE RECORDS SUMMARY | 2025-05-24 11:03 | XMS_ITS | Clinical Summary ---
Author Organization [facility] at the [facility] Address [address] [place] [address] Care Team Providers Care Wire Web Worker Name Role Phone Clifton Gan MD Primary Care Provider Dianna Hanks NP Unavailable [phone] Uday Correa MD Unavailable [phone] Irais Rogers MD Unavailable Erasto Kerns MD Unavailable [phone] Allergies No known active allergies Medications linaCLOtide [...] THREE TIMES DAILY NEEDED FOR MUSCLE SPASM Active oxyCODONE (ROXICODONE) 5 mg immediate release [...] (07/10/2024 11:16 AM CDT): Ongoing complaint. Has VERMIN EXTERMINATOR appointment next week. Will recheck a urine culture today. Last abx end of April. Will start septra twice daily We briefly discussed vaginal odor. She denies vaginal discharge. We discussed possibility of BV. We discussed use of boric acid tablets or suppositories [id number]. Discussed use of baking soda baths. Discussed [...] Date Resolved Date Encounter for medical [facility] to [facility] care 05/21/2024 07/10/2024 Assessment & [...] Type Department Care Team Description 05/06/2025 Telephone [facility] [id number] [place] [address] 2 [address] [place] [address] Danielito Brown MD 04/30/2025 Telephone [facility] Primary Care at [address] [phone] Clifton Gan MD Medical Records Request 04/28/2025 2:14 PM CDT - 04/28/2025 11:59 PM CDT Hospital Encounter [facility] [address] [place] [address] Lumbar disc herniation with radiculopathy Discharge Disposition: Discharge to home or self care 04/28/2025 12:45 PM CDT - 04/28/2025 11:59 PM CDT Hospital Encounter [facility] [address] [place] [address] Reza Goodman MD Spinal stenosis of lumbar region without neurogenic claudication; Lumbar radiculopathy Discharge Disposition: Discharge to home or self care 04/27/2025 6:55 AM CDT - 04/27/2025 11:59 PM CDT Hospital Encounter [facility] [address] [place] [address] Matti Marrero NP Lumbar radiculopathy (Primary Dx); Lumbar disc herniation with radiculopathy; Spinal stenosis of lumbar region without neurogenic claudication Discharge Disposition: Discharge to home or self care 04/23/2025 11:20 AM CDT - 04/23/2025 11:59 PM CDT Hospital Encounter [facility] [address] [place] [address] Discharge Disposition: Discharge to home or self care 04/23/2025 11:00 AM CDT Office Visit [facility] [id number] [place] [address] 2 [address] [place] [address] Danielito Brown MD Lumbar radiculopathy [M54.16] (Primary Dx) 04/21/2025 Telephone [facility] [address] [place] [address] [place] [address] Melita Resendez 04/21/2025 Telephone [facility] Rehabilitation Services at [address] [place] [address] Edelmira Hayes, PT Cancel (Patient call in today because she is at the hospital in a lot of pain, and doctor states therapy is not helping right now pt request to be Discharged, and her doctor will check the system for her appt on 04/23/2025) 04/21/2025 Orders Only [facility] [address] [place] [address] [address] [place] [address] Odilia Peterson, GANESH Lumbar disc herniation with radiculopathy (Primary Dx) 04/21/2025 Nurse Triage [facility] Primary Care at [address] [address] Yakelin Cotto RN 04/21/2025 Telephone [facility] Rehabilitation Services at [address] [place] [address] Jose D Elaine, PT Appointment (Excused - 1st Ill - calling ambulance) 04/17/2025 10:45 AM CDT Therapy [facility] Services at [address] [place] [address] Delia Minor, PT Lumbar disc herniation with radiculopathy (Primary Dx) 04/15/2025 Telephone [facility] Rehabilitation Services at [address] [place] [address] Corey Luna, PT Appointment 04/14/2025 9:50 AM CDT Ancillary Procedure [facility] [address] [facility] [address] [place] [address] Lumbar disc herniation with radiculopathy; Lumbar radiculopathy 04/14/2025 7:57 AM CDT - 04/14/2025 11:59 PM CDT Hospital Encounter [facility] [address] [place] [address] Reza Goodman MD Lumbar radiculopathy (Primary Dx); Lumbar disc herniation with radiculopathy; Spinal stenosis of lumbar region without neurogenic claudication Discharge Disposition: Discharge to home or self care 04/13/2025 4:30 PM CDT Therapy [facility] Rehabilitation Services at [address] [address] Simon Gresham PTA Lumbar disc herniation with radiculopathy (Primary Dx) 04/13/2025 Telephone [facility] Primary Care at [address] [address] Clifton Gan MD Medical Question/Miscellane ous 04/10/2025 8:00 AM CDT Therapy [facility] Services at [address] [address] Jose D Elaine PT Lumbar disc herniation with radiculopathy 04/10/2025 Nurse Triage [facility] Primary Care at [address] [phone] Clifton Gan MD 04/10/2025 Plan of Care Documentation [facility] Services at [address] [address] 04/09/2025 9:00 AM CDT Office Visit [facility] [address] [place] [address] 2 [address] [place] [address] Odilia Peterson NP Lumbar disc herniation with radiculopathy (Primary Dx) 04/09/2025 8:33 AM CDT - 04/09/2025 11:59 PM CDT Hospital Encounter [facility]) [address] [place] [address] Discharge Disposition: Discharge to home or self care 04/09/2025 Telephone [facility] Primary Care at [address] [address] Clifton Gan MD Medical Question/Miscellane ous 04/07/2025 Telephone [facility] [address] [place] [address] 2 [address] [place] [address] Betzaida White 04/07/2025 Nurse Triage [facility] Primary Care at [address] [phone] Clifton Gan MD 04/06/2025 5:29 PM CDT - 04/06/2025 8:03 PM CDT Emergency [facility] [address] [place] [address] Dinesh Obrien MD Chronic left-sided low back pain with left-sided sciatica (Primary Dx); Lumbar radiculopathy Discharge Disposition: Discharge to home or self care 04/06/2025 10:30 AM CDT Office Visit [facility] Primary Care at [address] [phone] Clifton Gan MD Herniated nucleus pulposus, L4-5 left (Primary Dx); Cauda equina syndrome (HCC) 04/06/2025 Nurse Triage [facility] Primary Care at [address] [address] Clifton Gan MD 04/06/2025 Orders Only [facility] Primary Care at [address] [phone] Clifton Gan MD Degenerative disc disease, lumbar 04/06/2025 Telephone [facility] Primary Care at [address] [address] Clifton Gan MD warm transfer 04/02/2025 2:30 PM CDT Office Visit [facility] Primary Care at [address] [address] Clifton Gan MD Spinal stenosis of lumbar region without neurogenic claudication (Primary Dx) 03/31/2025 7:00 PM CDT Office Visit [facility] Care at [address] [address] Coco Shields NP Acute left-sided low back pain with left-sided sciatica (Primary Dx) 03/10/2025 7:00 AM CDT Office Visit [facility] Primary Care at [address] [address] Simona Carlisle NP Seborrheic dermatitis [...] 04/23/2025 10:59 AM CDT Plan of Treatment Health Maintenance Due Date Last Done Comments Cervical Cancer Screening 1981 Varicella Vaccines (1 of 2 - 13+ 2-dose series) 1994 Pneumococcal vaccine <65 (1 of 2 - PCV) 2000 HPV Vaccines (1 - 3-dose SCDM series) 2008 DTaP/Tdap/Td Vaccine (2 - Td or Tdap) 07/23/202411/2013 Regular Well Visit/Exam 18-64 05/21/2025 05/21/2024 Influenza Vaccine (#1) 2025 Breast Cancer Screening-Mammogram 06/27/2025 024 Depression Screening 03/10/2026 03/10/2025, 07/10/2024, 05/21/2024 Hepatitis B Screening Completed 05/21/2024 Hepatitis C Screening Completed 05/21/2024 Procedures Procedure Name Priority Date/Time Associated Diagnosis [...] Lumbar/Sacral Selective Nerve Root INJ (TFE) Left (02314) (04/28/2025 4:34 PM CDT) Narrative RAD_PACS_[facility] - [...] abnormality. Electronically signed by: Kina Pérez M.D. us Odilia Peterson NP IMG XR PROCEDURES Final Result * Neuro CT Outside Reference (04/23/2025 11:20 AM CDT) Impressions RAD_PACS_[facility] - 04/23/2025 11:20 AM CDT These images are for Reference purposes only and have not been reviewed by [facility]. There will be no report generated by a [facility] Radiologist. Narrative RAD_PACS_BJ - 04/23/2025 11:20 AM CDT EXAMINATION: Images For Reference Purposes Only Danielito Brown MD IM CT PROCEDURES Final Resul t Performing Organization Address [facility] Co de Phone Number RAD_[email or web address] * Imaging Lumbar/Caudal Epidural Steroid INJ (84700) (04/14/2025 10:08 AM CDT) Narrative RAD_PACS_ - 04/14/2025 10:09 AM CDT The images from this study are not interpreted by Radiology. Please refer to the physician's procedure / OR operative note. Reza Goodman MD IMG PAIN MGMT PROCEDU RES Final Result Performing Organization Address [facility] Co de Phone Number RAD_PACS_[facility] * Neuro MR Outside Reference (04/09/2025 8:33 AM CDT) Impressions CHUCK - 04/09/2025 8:33 AM CDT These images are for Reference purposes only and have not been reviewed by [facility]. There will be no report generated by a [facility] Radiologist. Narrative [facility] - 04/09/2025 8:33 AM CDT EXAMINATION: Images For Reference Purposes Only Danielito Brown MD IMG MRI PROCEDURES Final Resu lt Performing Organization Address City/[facility]/ZIP Co de Phone Number [email or web address] * HM MAMMOGRAPHY (06/27/2024 2:07 PM CDT) Nicci Provider HEALTH MAINTENANCE Final Result * Hepatitis [...] Edited Result - Final Performing Organization Address City/[facility]/ZIP Co de Phone Number MARIETTA GONZALEZ [address] [address] Department [place] [address] from Last 3 Months or Most Recently Relevant to Health Maintenance Insurance [facility] HMO/PPO Address: [address] [address] [place] [address] [facility] MEDICARE ADVANTAGE [facility] MEDICARE Address: [address] [address] [place] [address] [facility] MEDICARE ADVANTAGE [facility] MEDICARE Address: [address] [address] [place] [address] Care Teams Wire Web Worker Relationship Specialty Start Date End Date Clifton Gan MD [address] [place] [address] PCP - General Family Medicine 05/21/24 [place] [address] [address] [place] [address] Nurse Practitioner Mixing Machine Feeder 06/17/24 Uday Correa MD [address] [place] [address] Referring Physician Obstetrics and Gynecology 03/10/25 Irais Rogers MD [address] [place] [address] Referring Physician Pain Management 04/06/25 Erasto Kerns MD [address] [facility] 3 [place] [address] Consulting Physician Neurosurgery 04/15/25
--- OUTSIDE RECORDS SUMMARY | 2025-05-24 13:07 | XMS_ITS | Clinical Summary ---
Author Organization [facility] at the [facility] Office Center Address [address] [place] [address] Care Team Providers Care Cfa Name Role Phone Clifton Gan MD Primary Care Provider Dianna Hanks NP Unavailable Uday Correa MD Unavailable [phone] Irais Rogers MD Unavailable Erasto Kerns MD Unavailable Allergies No known active allergies Medications linaCLOtide [...] (07/10/2024 11:16 AM CDT): Ongoing complaint. Has CALENDER RUNNER appointment next week. Will recheck a urine culture today. Last abx end of April. Will start septra twice daily We briefly discussed vaginal odor. She denies vaginal discharge. We discussed possibility of BV. We discussed use of boric acid tablets or suppositories [id number]. Discussed use of baking soda baths. Discussed [...] Resolved Date Encounter for medical examin [facility] to establish care 05/21/2024 07/10/2024 Assessment & [...] Care Team Description 05/06/2025 Telephone [facility] [address] [place] [address] 2 [address] [place] [address] Danielito Brown MD 04/30/2025 Telephone [facility] Primary Care at [address] [phone] Clifton Gan MD Medical Records Request 04/28/2025 2:14 PM CDT - 04/28/2025 11:59 PM CDT Hospital Encounter [facility] Imaging [address] [place] [address] Lumbar disc herniation with radiculopathy Discharge Disposition: Discharge to home or self care 04/28/2025 12:45 PM CDT - 04/28/2025 11:59 PM CDT Hospital Encounter [facility] [address] [place] [address] Reza Goodman MD Spinal stenosis of lumbar region without neurogenic claudication; Lumbar radiculopathy Discharge Disposition: Discharge to home or self care 04/27/2025 6:55 AM CDT - 04/27/2025 11:59 PM CDT Hospital Encounter [facility] [address] [place] [address] Matti Marrero NP Lumbar radiculopathy (Primary Dx); Lumbar disc herniation with radiculopathy; Spinal stenosis of lumbar region without neurogenic claudication Discharge Disposition: Discharge to home or self care 04/23/2025 11:20 AM CDT - 04/23/2025 11:59 PM CDT Hospital Encounter [facility]) [address] [place] [address] Discharge Disposition: Discharge to home or self care 04/23/2025 11:00 AM CDT Office Visit [facility] [address] [place] [address] 2 [address] [place] [address] Danielito Brown MD Lumbar radiculopathy [M54.16] (Primary Dx) 04/21/2025 Telephone [facility] [address] [place] [address] [place] [address] Melita Resendez 04/21/2025 Telephone [facility] Rehabilitation Services at [address] [place] [address] Edelmira Hayes, PT Cancel (Patient call in today because she is at the hospital in a lot of pain, and doctor states therapy is not helping right now pt request to be Discharged, and her doctor will check the system for her appt on 04/23/2025) 04/21/2025 Orders Only [facility] [address] [place] [address] [address] [place] [address] Odilia Peterson, GANESH Lumbar disc herniation with radiculopathy (Primary Dx) 04/21/2025 Nurse Triage [facility] Group Primary Care at [address] [address] Yakelin Cotto RN 04/21/2025 Telephone [facility] Rehabilitation Services at [address] [place] [address] Jose D Elaine, PT Appointment (Excused - 1st Ill - calling ambulance) 04/17/2025 10:45 AM CDT Therapy [facility] Rehabilitation Services at [address] [place] [address] Delia Minor, PT Lumbar disc herniation with radiculopathy (Primary Dx) 04/15/2025 Telephone [facility] Rehabilitation Services at [address] [place] [address] Corey Luna, PT Appointment 04/14/2025 9:50 AM CDT Ancillary Procedure [facility] [address] [facility] [address] [place] [address] Lumbar disc herniation with radiculopathy; Lumbar radiculopathy 04/14/2025 7:57 AM CDT - 04/14/2025 11:59 PM CDT Hospital Encounter [facility] [address] [place] [address] Reza Goodman MD Lumbar radiculopathy (Primary Dx); Lumbar disc herniation with radiculopathy; Spinal stenosis of lumbar region without neurogenic claudication Discharge Disposition: Discharge to home or self care 04/13/2025 4:30 PM CDT Therapy [facility] Rehabilitation Services at [address] [address] Simon Gresham PTA Lumbar disc herniation with radiculopathy (Primary Dx) 04/13/2025 Telephone [facility] Primary Care at [address] [address] Clifton Gan MD Medical Question/Miscellane ous 04/10/2025 8:00 AM CDT Therapy [facility] Services at [address] [address] Jose D Elaine PT Lumbar disc herniation with radiculopathy 04/10/2025 Nurse Triage [facility] Primary Care at [address] [phone] Clifton Gan MD 04/10/2025 Plan of Care Documentation [facility] Services at [address] [address] 04/09/2025 9:00 AM CDT Office Visit [facility] [address] [place] [address] 2 [address] [place] [address] Odilia Peterson NP Lumbar disc herniation with radiculopathy (Primary Dx) 04/09/2025 8:33 AM CDT - 04/09/2025 11:59 PM CDT Hospital Encounter [facility]) [address] [place] [address] Discharge Disposition: Discharge to home or self care 04/09/2025 Telephone [facility] Primary Care at [address] [address] Clifton Gan MD Medical Question/Miscellane ous 04/07/2025 Telephone [facility] [address] [place] [address] 2 [address] [place] [address] Betzaida White 04/07/2025 Nurse Triage [facility] Primary Care at [address] [address] Clifton Gan MD 04/06/2025 5:29 PM CDT - 04/06/2025 8:03 PM CDT Emergency [facility] Emergency Department [address] [place] [address] Dinesh Obrien MD Chronic left-sided low back pain with left-sided sciatica (Primary Dx); Lumbar radiculopathy Discharge Disposition: Discharge to home or self care 04/06/2025 10:30 AM CDT Office Visit [facility] Primary Care at [address] [address] Clifton Gan MD Herniated nucleus pulposus, L4-5 left (Primary Dx); Cauda equina syndrome (HCC) 04/06/2025 Nurse Triage [facility] Primary Care at [address] [address] Clifton Gan MD 04/06/2025 Orders Only [facility] Primary Care at [address] [address] Clifton Gan MD Degenerative disc disease, lumbar 04/06/2025 Telephone [facility] Primary Care at [address] [address] Clifton Gan MD warm transfer 04/02/2025 2:30 PM CDT Office Visit [facility] Primary Care at [address] [address] Clifton Gan MD Spinal stenosis of lumbar region without neurogenic claudication (Primary Dx) 03/31/2025 7:00 PM CDT Office Visit [facility] Care at [address] [address] Coco Shields NP Acute left-sided low back pain with left-sided sciatica (Primary Dx) 03/10/2025 7:00 AM CDT Office Visit [facility] Group Primary Care at [address] [address] Simona Carlisle NP Seborrheic dermatitis [...] Lumbar/Sacral Selective Nerve Root INJ (TFE) Left ([id number]) (04/28/2025 4:34 PM CDT) Narrative RAD_PACS_[facility] - [...] only and have not been reviewed by [facility]. There will be no report generated by a [facility] Radiologist. Narrative RAD_PACS_BJ - 04/23/2025 11:20 AM CDT EXAMINATION: Images For Reference Purposes Only Danielito Brown MD IM CT PROCEDURES Final Resul t Performing Organization Address [facility] Co de Phone Number RAD[email or web address] * Imaging Lumbar/Caudal Epidural Steroid INJ ([id number]) (04/14/2025 10:08 AM CDT) Narrative RAD_PACS_ - 04/14/2025 10:09 AM CDT The images from this study are not interpreted by Radiology. Please refer to the physician's procedure / OR operative note. Reza Goodman MD IMG PAIN MGMT PROCEDU RES Final Result Performing Organization Address [facility] Co de Phone Number RAD_PACS_[facility] * Neuro MR Outside Reference (04/09/2025 8:33 AM CDT) Impressions CHUCK - 04/09/2025 8:33 AM CDT These images are for Reference purposes only and have not been reviewed by [facility]. There will be no report generated by a [facility] Radiologist. Narrative [facility]PACS[facility] - 04/09/2025 8:33 AM CDT EXAMINATION: Images For Reference Purposes Only Danielito Brown MD IMG MRI PROCEDURES Final Resu lt Performing Organization Address City/[facility]/ZIP Co de Phone Number RAD_[email or web address] * HM [...] Edited Result - Final Performing Organization Address City/[facility]/ZIP Co de Phone Number MARIETTA GONZALEZ [address] [address] Department [place] [address] from Last 3 Months or Most Recently Relevant to Health Maintenance Insurance [facility] MEDICARE ADVANTAGE [facility] MEDICARE ADVANTAGE Care Teams Cfa Relationship Specialty Start Date End Date Clifton Gan MD [address] [place] [address] PCP - General Family Medicine 05/21/24 [place] [address] [address] [place] [address] Nurse Practitioner Fairing Worker 06/17/24 Uday Correa MD [address] [place] [address] Referring Physician Obstetrics and Gynecology 03/10/25 Irais Rogers MD [address] [place] [address] Referring Physician Pain Management 04/06/25 Erasto Kerns MD 112 [facility] 3 [place] [address] Consulting Physician Neurosurgery 04/15/25
--- OUTSIDE RECORDS SUMMARY | 2025-05-24 13:08 | XMS_ITS | Encounter Summary ---
Author Organization [facility] Healthcare Address [address] [place] [address] Care Team Providers Care Cone Tender Name Role Phone Clifton Gan MD Primary Care Provider Dianna Hanks NP Unavailable [phone] Uday Correa MD Unavailable [phone] Irais Rogers MD Unavailable Erasto Kerns MD Unavailable [phone] Reason for Visit * Reason Onset Date Comments Back Pain 04/07/2025 Encounter Details Date Type Department Care Team (Late st Contact Info) Description 04/07/2025 Nurse Triage [facility] Medical Group Primary Care at [address] [address] Clifton Gan MD [address] [place] [address] [address] [place] [address] Social History Tobacco Use Types [...] 2 weeks. Seen in ED 04/06/25 at [facility] Hx: lumbar radiculopathy, thoracic radiculopathy, spinal stenosis of lumbar region, displacement oflumbar intervertebral disc w/o myelopathy I spoke to patient's (on HIPPA). Patient having severe back pain x 2 weeks. She was instructed to go to ED if pain got worse. She did get a toradol shot and steroids in an [facility] and it did not help. She did [...] groin or rectal area Protocols Used Back [id number] * Telephone Encounter - Mel [place] RN [...] ambulance? No Additional Comments: Patient went to [facility] to be admitted, after 9 hours, [...] ambulance? No Additional Comments: Patient went to [facility] to be admitted, after 9 hours, [...] ambulance? No Additional Comments: Patient went to [facility] to be admitted, after 9 hours, she was sent home.She is still in severe pain. Hung is on HIPAA. Does message need to be routed? Yes-Action Needed documented in this encounter Plan of Treatment Not on file documented as of this encounter Visit Diagnoses Not on filedocumented in this encounter Care Teams Cone Tender Relationship Specialty Start Date End Date Clifton Gan MD [address] [place] [address] PCP - General Family Medicine 05/21/24 [place] [address] [facility] [address] [place] [address] Nurse Practitioner Combiner Operator 06/17/24 Uday Correa MD [address] [place] [address] Referring Physician Obstetrics and Gynecology 03/10/25 Irais Rogers MD [address] [place] [address] Referring Physician Pain Management 04/06/25 Erasto Kerns MD [address] [facility] 3 [place] [address] Consulting Physician Neurosurgery 04/15/25 documented as of this encounter
--- OUTSIDE RECORDS SUMMARY | 2025-05-24 13:08 | XMS_ITS | Clinical Summary ---
Author Organization [facility] [employer] Address [address] [place] [address] Care Team Providers Care Global Compensation Analyst Name Role Phone Unavailable Primary Care Provider Unavailabl e Source Comments [facility] [employer]non-owned Affiliates and Associated Physician Practices is amultiple site organization consisting of ambulatory clinics and hospital sitesin [place], [place], [place] and [place]. This disclosure is being madepursuant to the Care Everywhere program and may not contain all information available regarding this patient. Last updated 18.[facility] [employer] Allergies No known active allergies Medications * [...] - 26 mg/dL 01/20/2024 10:29 PM CDT [facility] Creatinine 0.81 0.56 - 0.96 mg/dL 01/20/2024 10:29 PM CDT [facility] Sodium 139 136 - 145 mmol/L 01/20/2024 10:29 PM [facility] Potassium 4.1 3.5 - 4.5 mmol/L 01/20/2024 10:29 PM [facility] Chloride 105 98 - 107 mmol/L 01/20/2024 10:29 PM [facility] CO2 25 22 - 29 mmol/L 01/20/2024 10:29 PM [facility] Glucose 86 70 - 115 mg/dL 01/20/2024 10:29 PM [facility] Calcium 9.6 8.4 - 10.2 mg/dL 01/20/2024 10:29 PM [facility] Protein Total 7.4 6.0 - 8.3 g/dL 01/20/2024 10:29 PM [facility] Albumin 4.1 3.4 - 5.0 g/dL 01/20/2024 10:29 PM [facility] Bilirubin Total 0.6 0.2 - 1.2 mg/dL 01/20/2024 10:29 PM [facility] Alkaline Phosphatase 61 40 - 150 U/L 01/20/2024 10:29 PM [facility] ALT 13 5 - 55 U/L 01/20/2024 10:29 PM [facility] AST 17 5 - 34 U/L 01/20/2024 10:29 PM [facility] Anion Gap 9 6 - 16 01/20/2024 10:29 PM [facility] BUN/Creatinine Ratio 12 7 - 23 01/20/2024 10:29 PM [facility] Osmolality Calculated 286 275 - 295 mOsm/kg 01/20/2024 10:29 PM [facility] Albumin/Globulin Ratio 1.2 1.1 - 2.3 01/20/2024 10:29 PM [facility] eGFR by CKD-EPI >90 >=90 mL/min/1.7 3 m2 01/20/2024 10:29 PM [facility] Blood BLOOD SPECIMEN / Unknown Venipuncture / Unknown 01/20/2024 9:47 PM CDT 01/20/2024 9:57 PM CDT us Sage Schwartz MD LAB - CHEMISTRY ORDERABLES Fi nal Result [facility] [address] [place] [address], [place] [phone] from Last 3 Months or Most Recently Relevant to Health Maintenance Insurance [facility]
--- OUTSIDE RECORDS SUMMARY | 2025-05-24 13:08 | XMS_ITS | Referral Summary ---
Author Organization [facility] Address [address] [place] [address] Care Team Providers Care E Commerce Strategist Name Role Phone Clifton Gan MD Primary Care Provider [phone] Dianna Hanks NP Unavailable Uday Correa MD Unavailable Irais Rogers MD Unavailable Erasto Kerns MD Unavailable Encounters Date Type Department Care Team Description 05/06/2025 Telephone [facility] [id number] [place] [address] 2 [address] [place] [address] Danielito Brown MD 04/30/[address] [facility] Medical Group Primary Care at [address] [place] [address] Clifton Gan MD Medical Records Request 04/28/2025 2:14 PM CDT - 04/28/2025 11:59 PM CDT Hospital Encounter [facility] [address] [place], [place] [id number] Lumbar disc herniation with radiculopathy Discharge Disposition: Discharge to home or self care 04/28/2025 12:45 PM CDT - 04/28/2025 11:59 PM CDT Hospital Encounter [facility] [address] [place], [place] [phone] Reza Goodman MD Spinal stenosis of lumbar region without neurogenic claudication; Lumbar radiculopathy Discharge Disposition: Discharge to home or self care 04/27/2025 6:55 AM CDT - 04/27/2025 11:59 PM CDT Hospital Encounter [facility] [address] [place] [address] Matti Marrero NP Lumbar radiculopathy (Primary Dx); Lumbar disc herniation with radiculopathy; Spinal stenosis of lumbar region without neurogenic claudication Discharge Disposition: Discharge to home or self care 04/23/2025 11:20 AM CDT - 04/23/2025 11:59 PM CDT Hospital Encounter [facility] [address] [place] [address] Discharge Disposition: Discharge to home or self care 04/23/2025 11:00 AM CDT Office Visit [facility] [address] [place] [address] 2 [address] [place] [address] Danielito Brown MD Lumbar radiculopathy [M54.16] (Primary Dx) 04/21/2025 Telephone [facility] [address] [place] [address] Melita Resendez 04/21/2025 Telephone [facility] Rehabilitation Services at [address] [place] [address] Edelmira Hayes PT Cancel (Patient call in today because she is at the hospital in a lot of pain, and doctor states therapy is not helping right now pt request to be Discharged, and her doctor will check the system for her appt on 04/23/2025) 04/21/2025 Orders Only [facility] [address] [place] [address] 2 [address] [place] [address] Odilia Peterson NP Lumbar disc herniation with radiculopathy (Primary Dx) 04/21/[address] [facility] Medical Group Primary Care at [address] [address] Yakelin Cotto RN 04/21/2025 Telephone [facility] at [address] [address] Jose D Elaine, PT Appointment (Excused - 1st Ill - calling ambulance) 04/17/2025 10:45 AM CDT Therapy [facility] at [address] [address] Delia Minor, PT Lumbar disc herniation with radiculopathy (Primary Dx) 04/15/2025 Telephone [facility] at [address] [address] Corey Luna, PT Appointment 04/14/2025 9:50 AM CDT Ancillary Procedure [facility] [address] [place] [address] [address] [address] Lumbar disc herniation with radiculopathy; Lumbar radiculopathy 04/14/2025 7:57 AM CDT - 04/14/2025 11:59 PM CDT Hospital Encounter [facility] [address] [place] [address] Reza Goodman MD Lumbar radiculopathy (Primary Dx); Lumbar disc herniation with radiculopathy; Spinal stenosis of lumbar region without neurogenic claudication Discharge Disposition: Discharge to home or self care 04/13/[address] [facility] Primary Care at [address] [address] Clifton Gan MD Medical Question/Miscellane ous 04/13/2025 4:30 PM CDT Therapy [facility] at [address] [address] Simon Gresham PTA Lumbar disc herniation with radiculopathy (Primary Dx) 04/10/[address] [facility] Primary Care at [address] [phone] Clifton Gan MD 04/10/2025 Plan of Care Documentation [facility] at [address] [place] [address] 04/10/2025 8:00 AM CDT Therapy [facility] at [address] [place] [address] Jose D Elaine PT Lumbar disc herniation with radiculopathy 04/09/[address] [facility] Primary Care at [address] [phone] Clifton Gan MD Medical Question/Miscellane ous 04/09/2025 8:33 AM CDT - 04/09/2025 11:59 PM CDT Hospital Encounter [facility] ([facility]) [address] [place] [address] Discharge Disposition: Discharge to home or self care 04/09/2025 9:00 AM CDT Office Visit [facility] [address] [place] [address] 2 [address] [place] [address] Odilia Peterson, GANESH Lumbar disc herniation with radiculopathy (Primary Dx) 04/07/2025 Telephone [facility] [address] [place] [address] 2 [address] [place] [address] Betzaida White 04/07/[address] [facility] Primary Care at [address] [phone] Clifton Gan MD 04/06/[address] [facility] Primary Care at [address] [phone] Clifton Gan MD 04/06/2025 5:29 PM CDT - 04/06/2025 8:03 PM CDT Emergency [facility] Emergency Department [address] [place] [address] Dinesh Obrien MD Chronic left-sided low back pain with left-sided sciatica (Primary Dx); Lumbar radiculopathy Discharge Disposition: Discharge to home or self care 04/06/[address] [facility] Primary Care at [address] [phone] Clifton Gan MD Degenerative disc disease, lumbar 04/06/2025 10:30 AM CDT Office Visit [facility] Care at [address] [phone] Clifton Gan MD Herniated nucleus pulposus, L4-5 left (Primary Dx); Cauda equina syndrome (HCC) 04/06/2025 Telephone [facility] Primary Care at [address] [phone] Clifton Gan MD warm transfer 04/02/2025 2:30 PM CDT Office Visit [facility] Care at [address] [phone] Clifton Gan MD Spinal stenosis of lumbar region without neurogenic claudication (Primary Dx) 03/31/2025 7:00 PM CDT Office Visit [facility] Care at [address] [address] Coco Shields NP Acute left-sided low back pain with left-sided sciatica (Primary Dx) 03/10/2025 7:00 AM CDT Office Visit [facility] Care at [address] [phone] Simona Carlisle NP Seborrheic dermatitis [...] (07/10/2024 11:16 AM CDT): Ongoing complaint. Has ELECTRICAL INSTRUMENT MAKER appointment next week. Will recheck a urine culture today. Last abx end of April. Will start septra twice daily We briefly discussed vaginal odor. She denies vaginal discharge. We discussed possibility of BV. We discussed use of boric acid tablets or suppositories [id number]. Discussed use of baking soda baths. Discussed [...] Date Resolved Date Encounter for medical examin [facility] to establish care 05/21/2024 07/10/2024 Assessment & [...] Lumbar/Sacral Selective Nerve Root INJ (TFE) Left (62020) (04/28/2025 4:34 PM CDT) Narrative RAD_PACS_[facility] - [...] signed by: Kina Pérez M.D. Odilia Peterson LEATHER CLEANER IMG XR PROCEDURES Final Result * Neuro CT Outside Reference (04/23/2025 11:20 AM CDT) Impressions TERRIPACS_BJ - 04/23/2025 11:20 AM CDT These images are for Reference purposes only and have not been reviewed by [facility] Radiology. There will be no report generated by a [facility] Radiologist. Narrative RAD_PACS_BJ - 04/23/2025 11:20 AM CDT EXAMINATION: Images For Reference Purposes Only Danielito Brown MD IMG CT PROCEDURES Final Resul t Performing Organization Address [facility] Co de Phone Number RAD_PACS_[facility] * Imaging Lumbar/Caudal Epidural Steroid INJ ([id number]) (04/14/2025 10:08 AM CDT) Narrative RAD_PACS_CH - 04/14/2025 10:09 AM CDT The images from this study are not interpreted by Radiology. Please refer to the physician's procedure / OR operative note. Reza Goodman MD IMG PAIN MGMT PROCEDU RES Final Result Performing Organization Address [facility] de Phone Number RAD_PACS_[facility] * Neuro MR Outside Reference (04/09/2025 8:33 AM CDT) Impressions RAD_PACS_[facility] - 04/09/2025 8:33 AM CDT These images are for Reference purposes only and have not been reviewed by [facility] Radiology. There will be no report generated by a [facility] Radiologist. Narrative RAD_PACS_[facility] - 04/09/2025 8:33 AM CDT EXAMINATION: Images For Reference Purposes Only Danielito Brown MD IMG MRI PROCEDURES Final Resu lt Performing Organization Address [facility] de Phone Number RAD_PACS_[facility] * HM MAMMOGRAPHY [...] ORDERABLES [place] - [place] [address] Becky Guerrero Department [place] [address] from Last 3 Months or Most Recently Relevant to Health Maintenance Insurance [facility] HMO/PPO Address: [address] [address] [place] [address] [facility] MEDICARE ADVANTAGE [facility] MEDICARE Address: [address] [address] [place] [address] [facility] MEDICARE ADVANTAGE [facility] MEDICARE Address: [facility] [address] [place] [address] Care Teams E Commerce Strategist Relationship Specialty Start Date End Date Clifton Gan MD [address] [facility] [address] [place] [address] PCP - General Family Medicine 05/21/24 [place] [address] [facility] [address] [place] [address] Nurse Practitioner Wrapper Rewinder 06/17/24 Uday Correa MD [address] [facility] [address] [place] [address] Referring Physician Obstetrics and Gynecology 03/10/25 Irais Rogers MD [address] [place] [address] Referring Physician Pain Management 04/06/25 Erasto Kerns MD [address] [facility] 3 [place] [address] Consulting Physician Neurosurgery 04/15/25
[2025-05-24] MEDS: oxyCODONE HCL (*CRX) 5 MG TAB IR PO (14:05)
--- NOTE | 2025-05-24 17:19 | ED_ITS ---
HPI - Back Pain/Injury General Chief Complaint: Back Pain/Injury Stated Complaint: back pain Time Seen by Provider: 05/24/25 12:37 History of Present Illness HPI Narrative: 44-year-old female with history of lumbar radiculopathy currently undergoing physical therapy and has a planned outpatient procedure. She endorses pain as becoming slightly worse recently with some intermittent paresthesias radiating down the left hip. She is ambulatory but states that she ran out of her oxycodo ne and need some additional pain control to get through the last 2 physical therapy sessions prior to her surgery evaluation this next week. Patient denies any new traumatic injuries. No saddle anesthesias. No weakness or footdrop. No new inciting events and states that she simply just needs additional pain control. Related Data Allergies Allergy/AdvReac Type Severity Reaction Status Date / Time No Known Allergies Allergy Verified 05/24/25 11:04 Review of Systems Review of Systems: As reviewed above in HPI PMFSH Past Medical History Medical History Lumbar spondylosis Surgical History Surgical History History of delivery x 2 H/O neck surgery Disc replacement 2020 C3-C4 Family History Family History Mother Cerebrovascular accident Brain aneurysm Social History Social History Smoking packs per day: 0.3 Smoking cigarettes per day: 6.0 Years smoked: 24 Smoking pack-years: 7.20 Smoking status: Current some day smoker Tobacco type: cigarettes Alcohol intake: former Substance use: never Substance use type: does not use Do You Feel Safe in your Home?: Yes Lack of Transportation: No Lack of Food: Never True Current Housing: I Have Housing Concerned About Future Housing: No Difficulty Paying Gas/Electric Bills: No Difficulty Paying for Meds: YES Currently Unemployed: No Education: Decline to Answer Difficulty w/ Childcare or Family Care: No Living arrangements: with family Occupation/Education: other Gender identity (if verbalized by the patient): Female Spiritual care concerns: No Exam Narrative: GENERAL: [Well-appearing, well-nourished, and in no acute distress.] HEAD: [Normocephalic, atraumatic.] EYES: [PERRLA and EOMI.] ENT: Nares clear, no rhinorrhea or epistaxis. Mucous membranes moist. NECK: Supple. CHEST: [Clear to auscultation. No respiratory distress.] HEART: [Regular rate and rhythm]. No murmur heard. [Normal peripheral pulses.] ABDOMEN: [Soft, nondistended], [nontender], [No rigidity or guarding] EXTREMITIES: Normal range of motion. [No edema.] SKIN: Warm, dry, no rash. NEURO: [No focal deficits]. Alert and oriented [x3.] EHL and FHL 5/5, good range of motion with full strength symmetrically without any sensory deficits. No footdrop. No saddle anesthesia. PSYCH: [Normal mood and affect.] Course Vital Signs Vital signs: Vital Signs Temperature 36.3 C L 05/24/25 11:02 Pulse Rate 73 05/24/25 11:02 Respiratory Rate 16 05/24/25 11:02 Blood Pressure 144/72 H 05/24/25 11:02 Pulse Oximetry 98 05/24/25 11:02 Temperature 36.3 C L 05/24/25 11:02 Pulse Rate 73 05/24/25 11:02 Respiratory Rate 16 05/24/25 11:02 Blood Pressure 144/72 H 05/24/25 11:02 Pulse Oximetry 98 05/24/25 11:02 MDM - Back Pain/Injury MDM Narrative Medical decision making narrative: 44-year-old female with history of lumbar radiculopathy currently undergoing physical therapy and has a planned outpatient procedure. She endorses pain as becoming slightly worse recently with some intermittent paresthesias radiating down the left hip. She is ambulatory but states that she ran out of her oxycodone and need some additional pain control to get through the last 2 physical therapy sessions prior to her surgery evaluation this next week. Patient denies any new traumatic injuries. No saddle anesthesias. No weakness or footdrop. No new inciting events and states that she simply just needs additional pain control. Patient's physical examination is unremarkable with normal vital signs, strong symmetric pulses and no red flag signs or symptoms of cauda equina or conus medullaris. Given patient's pain and symptomatology we did represcribe her short course of oxycodone to get through the next few physical therapy sessions so she can successfully go get her surgical evaluation for definitive treatment. Patient and family were very appreciative and safe for discharge home at this time. Medical Records Attestation: I reviewed the patient's medical records. Discharge Plan Discharge Clinical Impression: Lumbar degenerative disc disease Patient Disposition: Home Condition: Stable Instructions: Antibiotic Form, Lumbar Radiculopathy (ED), Lower Back Exercises (ED) Additional Instructions: Return to the ER if you have increased pain in your back, you develop lower extremity weakness/numbness/paralysis, you have numbness or tingling in your private parts, or you are unable to control your ability to urinate/stool. Patient Language: Norwegian Prescriptions: New oxycodone 5 mg tablet 5 mg PO Q8H PRN (Reason: pain) Qty: 20 0RF No Action norethindrone (contraceptive) 0.35 mg tablet 0.35 mg PO DAILY Qty: 84 3RF methocarbamol 750 mg tablet 1,500 mg PO TID PRN (Reason: muscle spasm) Qty: 60 1RF lidocaine 5 % adhesive patch,medicated 1 patch topical DAILY Qty: 15 0RF Rx Instructions: leave on most painful area for up to 12 hrs oxycodone 5 mg tablet 5 mg PO Q6H PRN (Reason: pain) Qty: 20 0RF ketorolac 10 mg tablet 10 mg PO Q6H PRN (Reason: pain) Qty: 10 0RF Rx Instructions: maximum total duration of 5 days from all oral, intranasal, or parenteral formulations gabapentin 100 mg capsule 100 mg PO TID 7 Days Qty: 21 0RF Follow-up/Referrals: Elvia,Clifton Bonilla MD [Primary Care Provider] - Time of Disposition: 14:08
== END 2025-05-24 14:20 | disposition home or self-care (01) ==
PROVIDERS: Emergency Provider Student in an Organized Health Care Education/Training Program; PCP Family Medicine
DX: M51.369 Other intervertebral disc degeneration, lumbar region without mention of lumbar back pain or lower extremity pain (principal); F17.210 Nicotine dependence, cigarettes, uncomplicated
CPT/HCPCS: 99283; A9270

== ENCOUNTER 2025-06-15 07:52 | Outpatient (CLI) | payer MEDICARE, SELFPAY ==
--- NOTE | ~2025-06-15 | XR_ITS ---
EXAMINATION: XR chest 2V 06/15/2025 09:16 INDICATION: M51.16 TECHNIQUE:Frontal and lateral images of the chest were obtained. COMPARISON: None available FINDINGS: The lungs are clear. The cardiomediastinal silhouette is within normal limits. There are no pleural effusions. There is no pneumothorax suspected. IMPRESSION: 1: NO ACUTE CARDIOPULMONARY DISEASE. Reviewed, dictated and finalized at location Q.
--- OUTSIDE RECORDS SUMMARY | 2025-06-15 08:02 | XMS_ITS | Clinical Summary ---
Author Organization [facility] Address [address] [place] [address] Care Team Providers Care Headwaiter/Headwaitress Name Role Phone Unavailable Primary Care Provider Unavailabl e Source Comments [facility],non-owned Affiliates and Associated Physician Practices is amultiple site organization consisting of ambulatory clinics and hospital sitesin [place], [place], [place] and [place]. This disclosure is being madepursuant to the Care Everywhere program and may not contain all information available regarding this patient. Last updated 18.[facility] Allergies No known active allergies Medications * [...] - 26 mg/dL 01/20/2024 10:29 PM CDT [facility] Creatinine 0.81 0.56 - 0.96 mg/dL 01/20/2024 10:29 PM CDT [facility] Sodium 139 136 - 145 mmol/L 01/20/2024 10:29 PM [facility] Potassium 4.1 3.5 - 4.5 mmol/L 01/20/2024 10:29 PM [facility] Chloride 105 98 - 107 mmol/L 01/20/2024 10:29 PM [facility] CO2 25 22 - 29 mmol/L 01/20/2024 10:29 PM [facility] Glucose 86 70 - 115 mg/dL 01/20/2024 10:29 PM [facility] Calcium 9.6 8.4 - 10.2 mg/dL 01/20/2024 10:29 PM [facility] Protein Total 7.4 6.0 - 8.3 g/dL 01/20/2024 10:29 PM [facility] Albumin 4.1 3.4 - 5.0 g/dL 01/20/2024 10:29 PM [facility] Bilirubin Total 0.6 0.2 - 1.2 mg/dL 01/20/2024 10:29 PM [facility] Alkaline Phosphatase 61 40 - 150 U/L 01/20/2024 10:29 PM [facility] ALT 13 5 - 55 U/L 01/20/2024 10:29 PM [facility] AST 17 5 - 34 U/L 01/20/2024 10:29 PM [facility] Anion Gap 9 6 - 16 01/20/2024 10:29 PM [facility] BUN/Creatinine Ratio 12 7 - 23 01/20/2024 10:29 PM [facility] Osmolality Calculated 286 275 - 295 mOsm/kg 01/20/2024 10:29 PM [facility] Albumin/Globulin Ratio 1.2 1.1 - 2.3 01/20/2024 10:29 PM [facility] eGFR by CKD-EPI >90 >=90 mL/min/1.7 3 m2 01/20/2024 10:29 PM [facility] Blood BLOOD SPECIMEN / Unknown Venipuncture / Unknown 01/20/2024 9:47 PM CDT 01/20/2024 9:57 PM CDT us Sage Schwartz MD LAB - CHEMISTRY ORDERABLES Fi nal Result [facility] [address] [place] [address], [place] [phone] from Last 3 Months or Most Recently Relevant to Health Maintenance Insurance [facility]
--- OUTSIDE RECORDS SUMMARY | 2025-06-15 08:02 | XMS_ITS | Clinical Summary ---
Author Organization [facility] Address [address] [place] [address] Care Team Providers Care Network Architect Name Role Phone Clifton Gan MD Primary Care Provider Dianna Hanks NP Unavailable Uday Correa MD Unavailable [phone] Irais Rogers MD Unavailable Erasto Kerns MD [...] needed for muscle spasms 20 tablet 5 Active Additional Information Patient not taking.Reported [...] (07/10/2024 11:16 AM CDT): Ongoing complaint. Has CLINICAL SUPPORT MANAGER appointment next week. Will recheck a urine culture today. Last abx end of April. Will start septra twice daily We briefly discussed vaginal odor. She denies vaginal discharge. We discussed possibility of BV. We discussed use of boric acid tablets or suppositories [id number]. Discussed use of baking soda baths. Discussed [...] Encounters Date Type Department Care Team Description 05/27/2025 Telephone [facility] Management [address] [place] [address] AravindKiana 05/06/2025 Telephone [facility] [address] [facility] [address] [place] [address] Danielito Brown MD 04/30/2025 Telephone [facility] Primary Care at [address] [address] Clifton Gan MD Medical Records Request 04/28/2025 2:14 PM CDT - 04/28/2025 11:59 PM CDT Hospital Encounter [facility] Diagnostic Imaging [address] [place] [address] Lumbar disc herniation with radiculopathy Discharge Disposition: Discharge to home or self care 04/28/2025 12:45 PM CDT - 04/28/2025 11:59 PM CDT Hospital Encounter [facility] [address] [place] [address] Reza Goodman MD Spinal stenosis of lumbar region without neurogenic claudication; Lumbar radiculopathy Discharge Disposition: Discharge to home or self care 04/27/2025 6:55 AM CDT - 04/27/2025 11:59 PM CDT Hospital Encounter [facility] [address] [place] [address] Matti Marrero NP Lumbar radiculopathy (Primary Dx); Lumbar disc herniation with radiculopathy; Spinal stenosis of lumbar region without neurogenic claudication Discharge Disposition: Discharge to home or self care 04/23/2025 11:20 AM CDT - 04/23/2025 11:59 PM CDT Hospital Encounter [facility] [address] [place] [address] Discharge Disposition: Discharge to home or self care 04/23/2025 11:00 AM CDT Office Visit [facility] [address] [place] [address] 2 [address] [place] [address] Danielito Brown MD Lumbar radiculopathy [M54.16] (Primary Dx) 04/21/2025 Telephone [facility] [address] [place] [address] Melita Resendez 04/21/2025 Telephone [facility] Rehabilitation Services at [address] [place] [address] Edelmira Hayes, PT Cancel (Patient call in today because she is at the hospital in a lot of pain, and doctor states therapy is not helping right now pt request to be Discharged, and her doctor will check the system for her appt on 04/23/2025) 04/21/2025 Orders Only [facility] [address] [place] [address] [address] [place] [address] Odilia Peterson, GANESH Lumbar disc herniation with radiculopathy (Primary Dx) 04/21/2025 Nurse Triage [facility] Primary Care at [address] [address] Yakelin Cotto RN 04/21/2025 Telephone [facility] Rehabilitation Services at [address] [place] [address] Jose D Elaine, PT Appointment (Excused - 1st Ill - calling ambulance) 04/17/2025 10:45 AM CDT Therapy [facility] Rehabilitation Services at [address] [place] [address] Delia Minor, PT Lumbar disc herniation with radiculopathy (Primary Dx) 04/15/2025 Telephone [facility] Rehabilitation Services at [address] [place] [address] Corey Luna, PT Appointment 04/14/2025 9:50 AM CDT Ancillary Procedure [facility] [address] [facility] [address] [place] [address] Lumbar disc herniation with radiculopathy; Lumbar radiculopathy 04/14/2025 7:57 AM CDT - 04/14/2025 11:59 PM CDT Hospital Encounter [facility] [address] [place] [address] Reza Goodman MD Lumbar radiculopathy (Primary Dx); Lumbar disc herniation with radiculopathy; Spinal stenosis of lumbar region without neurogenic claudication Discharge Disposition: Discharge to home or self care 04/13/2025 4:30 PM CDT Therapy [facility] Rehabilitation Services at [address] [place] [address] Simon Gresham PTA Lumbar disc herniation with radiculopathy (Primary Dx) 04/13/2025 Telephone [facility] Primary Care at [address] [address] Clifton Gan MD Medical Question/Miscellane ous 04/10/2025 8:00 AM CDT Therapy [facility] Rehabilitation Services at [address] [place] [address] Jose D Elaine PT Lumbar disc herniation with radiculopathy 04/10/2025 Nurse Triage [facility] Primary Care at [address] [address] Clifton Gan MD 04/10/2025 Plan of Care Documentation [facility] Rehabilitation Services at [address] [place] [address] 04/09/2025 9:00 AM CDT Office Visit [facility] [address] [place] [address] 2 [address] [place] [address] Odilia Peterson, GANESH Lumbar disc herniation with radiculopathy (Primary Dx) 04/09/2025 8:33 AM CDT - 04/09/2025 11:59 PM CDT Hospital Encounter [facility] [address] [place] [address] Discharge Disposition: Discharge to home or self care 04/09/2025 Telephone [facility] Primary Care at [address] [address] Clifton Gan MD Medical Question/Miscellane ous 04/07/2025 Telephone [facility] [address] [facility] [address] [place] [address] White Betzaida 04/07/2025 Nurse Triage [facility] Primary Care at [address] [address] Clifton Gan MD 04/06/2025 5:29 PM CDT - 04/06/2025 8:03 PM CDT Emergency [facility] Emergency Department [address] [place] [address] Dinesh Obrien MD Chronic left-sided low back pain with left-sided sciatica (Primary Dx); Lumbar radiculopathy Discharge Disposition: Discharge to home or self care 04/06/2025 10:30 AM CDT Office Visit [facility] Primary Care at [address] [address] Clifton Gan MD Herniated nucleus pulposus, L4-5 left (Primary Dx); Cauda equina syndrome (HCC) 04/06/2025 Nurse Triage [facility] Primary Care at [address] [address] Clifton Gan MD 04/06/2025 Orders Only [facility] Primary Care at [address] [address] [phone] Arias MD Degenerative disc disease, lumbar 04/06/2025 Telephone [facility] Primary Care at [address] [address] [phone] Arias MD warm transfer 04/02/2025 2:30 PM CDT Office Visit [facility] Primary Care at [address] [address] Clifton Gan MD Spinal stenosis of lumbar region without neurogenic claudication (Primary Dx) 03/31/2025 7:00 PM CDT Office Visit [facility] Convenient Care at [address] [address] Coco Shields NP Acute left-sided low back pain with left-sided sciatica (Primary Dx) from Last 3 Months Immunizations [...] Lumbar/Sacral Selective Nerve Root INJ (TFE) Left ([id number]) (04/28/2025 4:34 PM CDT) Narrative RAD_PACS_[facility] - [...] only and have not been reviewed by [facility]. There will be no report generated by a [facility] Radiologist. Narrative RAD_PACS_[facility] - 04/23/2025 11:20 AM CDT EXAMINATION: Images For Reference Purposes Only us Danielito Brown MD IMG CT PROCEDURES Final Resul t Performing Organization Address [facility] Co de Phone Number RAD_P[facility] * Imaging Lumbar/Caudal Epidural Steroid INJ ([id number]) (04/14/2025 10:08 AM CDT) Narrative RAD_PACS_ - 04/14/2025 10:09 AM CDT The images from this study are not interpreted by Radiology. Please refer to the physician's procedure / OR operative note. us Reza Goodman MD IMG PAIN MGMT PROCEDU RES Final Result Performing Organization Address [facility] Co de Phone Number RAD_PACS_[facility] * Neuro MR Outside Reference (04/09/2025 8:33 AM CDT) Impressions RAD_PACIke_[facility] - 04/09/2025 8:33 AM CDT These images are for Reference purposes only and have not been reviewed by [facility]. There will be no report generated by a [facility] Radiologist. Narrative RAD_JENNY_[facility] - 04/09/2025 8:33 AM CDT EXAMINATION: Images For Reference Purposes Only Danielito Brown MD IMG MRI PROCEDURES Final Resu lt [facility]PACS[facility] * HM MAMMOGRAPHY (06/27/2024 2:07 PM [...] - GENERAL ORDERABLES Edited Result - Final [facility] [address] Becky Guerrero Department [place] [address] from Last 3 Months or Most Recently Relevant to Health Maintenance Insurance [facility] CHOICE PLUS [facility] MEDICARE ADVANTAGE [facility] MEDICARE ADVANTAGE Care Teams Network Architect Relationship Specialty Start Date End Date Clifton Gan MD [address] [place] [address] PCP - General Family Medicine 05/21/24 [place] [address] [facility] [address] [place] [address] Nurse Practitioner Wood Stainer 06/17/24 Uday Correa MD [address] [facility] [address] [facility] [address] [place] [address] Referring Physician Obstetrics and Gynecology 03/10/25 Irais Rogers MD [address] [place] [address] Referring Physician Pain Management 04/06/25 Erasto Kerns MD [address] [place] [address] 3 [place] [address] Consulting Physician Neurosurgery 04/15/25
--- OUTSIDE RECORDS SUMMARY | 2025-06-15 08:02 | XMS_ITS | Encounter Summary ---
Author Organization [facility] Healthcare Address [address] [place] [address] Care Team Providers Care Machine Clerical Verifier Name Role Phone Clifton Gan MD Primary Care Provider Dianna Hanks NP Unavailable [phone] Uday Correa MD Unavailable [phone] Irais Rogers MD Unavailable Erasto Kerns MD Unavailable [phone] Reason for Visit * Reason Onset Date Comments Back Pain 04/07/2025 Encounter Details Date Type Department Care Team (Late st Contact Info) Description 04/07/2025 Nurse Triage [facility] Primary Care at [address] [address] Clifton Gan MD [address] [place] [address] [address] [place] [address] Social History Tobacco Use Types [...] weeks. Seen in ED 04/06/25 at [facility] Hx: lumbar radiculopathy, thoracic radiculopathy, spinal stenosis of lumbar region, displacement oflumbar intervertebral disc w/o myelopathy I spoke to patient's (on HIPPA). Patient having severe back pain x 2 weeks. She was instructed to go to ED if pain got worse. She did get a toradol shot and steroids in an [facility] and it did not help. She did [...] groin or rectal area Protocols Used Back Jock-Ckhgr-MR * Telephone Encounter - Mel Stephens RN [...] ambulance? No Additional Comments: Patient went to [facility] to be admitted, after 9 hours, [...] ambulance? No Additional Comments: Patient went to [facility] to be admitted, after 9 hours, [...] ambulance? No Additional Comments: Patient went to [facility] to be admitted, after 9 hours, she was sent home.She is still in severe pain. Hung is on HIPAA. Does message need to be routed? Yes-Action Needed documented in this encounter Plan of Treatment Not on file documented as of this encounter Visit Diagnoses Not on filedocumented in this encounter Care Teams Machine Clerical Verifier Relationship Specialty Start Date End Date Clifton Gan MD [address] [place] [address] PCP - General Family Medicine 05/21/24 [place] [address] [facility] [address] [place] [address] Nurse Practitioner Global Chief Experience Officer 06/17/24 Uday Correa MD [address] [place] [address] Referring Physician Obstetrics and Gynecology 03/10/25 Irais Rogers MD [address] [place] [address] Referring Physician Pain Management 04/06/25 Erasto Kerns MD [address] [facility] [address] [place] [address] Consulting Physician Neurosurgery 04/15/25 documented as of this encounter
--- NOTE | 2025-06-15 08:38 | ECG_ITS ---
Test Date: 2025-06-15 09:03:14 Measurements Intervals [place] Rate: 58 P: 54 GA: 173 QRS: 64 QRSD: 82 T: 48 QT: 410 QTc: 403 Interpretive Statements SINUS BRADYCARDIA BORDERLINE R WAVE PROGRESSION, ANTERIOR LEADS BASELINE ARTIFACT- I, II, AVR, AVL, AVF BORDERLINE ECG No previous ECG available for comparison Electronically Signed On 06-15-2025 09:05:13 CDT by Yaya Staton D.O.
[2025-06-15 10:17] LABS: Hematocrit 39.7 % (37.0-47.0); Hemoglobin 13.2 g/dL (12.0-15.0); Mean Corpuscular HGB Conc 33.2 g/dl (32-36); Mean Corpuscular Hemoglobin 27.8 pg (26-34); Mean Corpuscular Volume 83.8 fl (80-100); Platelet Count Result 211 k/mm3 (150-375); Red Blood Count 4.74 M/mm3 (4.2-5.4); White Blood Count 7.3 K/mm3 (4.5-10.0)
[2025-06-15 10:23] LABS: Add Urine Microscopic? YES; Appearance Urine Cloudy (Clear); Glucose Urine UA Negative (Negative); Leukocyte Esterase Ur Negative LEU/UL (Negative); Nitrate Urine Negative (Negative); Non Pathogenic Casts 0-2; Specific Grav Ur 1.012 (1.001-1.035)
[2025-06-15 10:28] LABS: INR 1.0; Prothrombin Time 13.7 Seconds (11.1-14.7)
[2025-06-15 10:29] LABS: Partial Thromboplastin Time 34.0 Seconds (22.3-36.8)
[2025-06-15 10:44] LABS: Anion Gap 6 mmol/L (4-12); Blood Urea Nitrogen 9 mg/dL (7-17); Calcium 9.4 mg/dL (8.4-10.2); Carbon Dioxide 30 mmol/L (22-30); Chloride 102 mmol/L (98-107); Estimated Glomerular Filt Rate > 60; Glucose 84 mg/dL (65-110); Potassium 3.9 mmol/L (3.4-5.0); Sodium 138 mmol/L (137-145)
== END 2025-06-15 07:53 | disposition home or self-care (01) ==
LOC: ANHSURGERY 07:56
PROVIDERS: PCP Family Medicine; Visit Provider Neurological Surgery
DX: Z01.818 Encounter for other preprocedural examination (principal); M51.16 Intervertebral disc disorders with radiculopathy, lumbar region; R94.31 Abnormal electrocardiogram [ECG] [EKG]
CPT/HCPCS: 36415; 71046; 80048; 81001; 85027; 85610; 85730; 93005

== ENCOUNTER 2025-06-24 01:11 | Day surgery (SDC) | payer MEDICARE, SELFPAY ==
--- NOTE | 2025-06-15 07:53 | PC.NURSE ---
Report to the Outpatient Waiting Room, entrance under the green pavilion located off [facility], at time _8:30 AM on date __06/24/25 . Planned Procedure Time: _10:30 AM .? Time changes happen often and if your time is changed the preop area will call you the afternoon before. - You and your visitor will be asked to self-screen and do not enter if you have any COVID symptoms. Please call surgeon if you need to reschedule. - A mask is optional within the hospital at this time. Patients may have clear liquids (water, carbonated beverages, clear teas, apple juice) until 3 hours prior to surgery ( 7:30 AM) with a maximum of 20 ounces. - No food from midnight until time of surgery and no smoking, or chewing tobacco (or any form of nicotine). No chewing gum, candy or mints. - Take only the following medications with a SIP of water on the morning of surgery: ___NONE DO NOT STOP ANY OF YOUR OTHER PRESCRIPTION MEDICATIONS PRIOR TO SURGERY EXCEPT THE FOLLOWING Hold all vitamins and supplements for 3 days per anesthesiologist. Medications to discontinue per physician ____PT STATES HOLD ADVIL 7 DAYS PRE OP PER DR HYDE Date to take last dose__06/16/25 Please no make-up, nail maldivian, hairspray, perfume, deodorant, or body powder the day of surgery.? No jewelry (including any body piercings) or valuables the day of surgery, leave them at home.? Please take a shower or bath the night before, or the morning of, surgery with an antibacterial soap.? Wear comfortable, loose fitting clothing.? Children are encouraged to wear pajamas. - Jewelry must be removed prior to entering the operating room.? Rings and piercings that are not removed may be cut off. - The hospital will not accept responsibility for valuables.? - Please leave all valuables, including medications, at home the day of surgery. If you are going home after surgery, a licensed automation driver must drive you home.? - NO public transportation without another adult if you receive anesthesia. - We recommend that an adult stay with you for 24 hours following discharge. - We also recommend that you do not drive, make important decision, drink alcoholic beverages, or take any drugs that were not prescribed by your health care provider for at least 24 hours after your discharge time. Follow any additional instructions given to you from your surgeon. VERBAL AND WRITTEN instructions given to __PATIENT and asked if any additional questions and then verbalized understanding. Patient advised to call surgeon office or pre surgery nurse liaison [phone] if any additional questions.
[2025-06-15 07:59] VITALS: BMI 29.8
[2025-06-15 08:27] VITALS: BP 134/75; PULSE 62; RESP 18; TEMP 36.6; O2SAT 99
[2025-06-24] VITALS (8 sets, daily range): BP systolic 118–139; BP diastolic 52–78; PULSE 60–87; RESP 12–20; TEMP 36.2–36.9; O2SAT 98–100
--- NOTE | ~2025-06-24 | XR_ITS ---
EXAM: XR fluoroscopy no charge - 06/24/2025 10:00 CDT History: 44 years old Female with LEFT L4-5, MICRODISCECTOMY Fluoroscopy time: 5.6 seconds FINDINGS/ IMPRESSION: Multiple fluoroscopic images of lumbosacral spine. Reviewed, dictated and finalized at location N.
[2025-06-24] MEDS: LACTATED RINGERS 1,000 ML 30 ML IV CONT ×2 (08:45→11:57)
[2025-06-24 09:21] LABS: BEDSIDEPREGUCG Negative (Negative)
--- NOTE | 2025-06-24 09:48 | P.PNAN_ITS ---
Anes - Initial Pre Proc Eval Procedure: Operation Date: 06/24/25 10:30 Proposed Procedures p Left L4-5, Microdiscectomy - Nayely Rocha MD Date/Time: 06/24/25 09:48 Surgeon: Nayely Rocha MD Pre Op Diagnosis: lumbar disc herniation w/radiculopathy Patient Data Age: 44 Gender: F Height: 1.68 m Weight: 81.8 kg Last Vital Signs Temp 36.9 C 06/24/25 09:16 Pulse 60 06/24/25 09:16 Resp 16 06/24/25 09:16 BP 126/52 L 06/24/25 09:16 Pulse Ox 98 06/24/25 09:16 O2 Del Method Room Air 06/24/25 09:16 Allergies Allergy/AdvReac Type Severity Reaction Status Date / Time No Known Allergies Allergy Verified 06/24/25 09:14 Home Medications ?Medication ?Instructions ?Recorded ?Confirmed ?Type norethindrone (contraceptive) 0.35 0.35 mg PO DAILY #8 4 tabs 07/15/24 06/15/25 Rx mg tablet gabapentin 100 mg capsule 100 mg PO TID 1 week #21 cap s 04/04/25 06/15/25 Rx ketorolac 10 mg tablet 10 mg PO Q6H PRN pain #10 ta bs 04/04/25 06/15/25 Rx lidocaine 5 % topical patch 1 patch topical DAILY #15 ea 04/21/25 06/15/25 Rx oxycodone 5 mg tablet 5 mg PO Q6H PRN pain #20 tab s 04/21/25 06/15/25 Rx methocarbamol 750 mg tablet 1,500 mg (2 x 750 mg) PO T ID PRN 04/30/25 06/15/25 Rx muscle spasm #60 tabs oxycodone 5 mg tablet 5 mg PO Q8H PRN pain #20 tab s 05/24/25 06/15/25 Rx ibuprofen 200 mg tablet (Advil) 800 mg PO DAILY 06/24/25 History Laboratory Tests 06/24/25 09:16 POC Urine HCG, Qual Negative (Negative) Patient hx anesthesia problems: none Family hx anesthesia problems: none Results Review: All pre-operative results and documents have been reviewed as part of the pre- operative evaluation. [facility] Past Medical History Medical History (Updated 06/24/25 @ 09:55 by Santo Fairchild DO) Chronic pain Lumbar spondylosis Surgical History Surgical History History of delivery x 2 H/O neck surgery Disc replacement 2020 C3-C4 Family History Family History Mother Cerebrovascular accident Brain aneurysm Social History Social History (Updated 06/11/25 @ 13:52 by Arlene Owens CMA) Years smoked: 24 Smoking status: Former smoker Tobacco type: cigarettes Smoking end date: 06/10/25 Additional smoking assessment comments: CURRENTLY SMOKES 1-2 CIGARETTES/DAY TRYING TO QUIT Alcohol intake: current Substance use: never Substance use type: does not use Do You Feel Safe in your Home?: Yes Lack of Transportation: No Lack of Food: Never True Current Housing: I Have Housing Concerned About Future Housing: No Difficulty Paying Gas/Electric Bills: No Difficulty Paying for Meds: YES Currently Unemployed: No Education: Decline to Answer Difficulty w/ Childcare or Family Care: No Living arrangements: with family Occupation/Education: other Gender identity (if verbalized by the patient): Female Spiritual care concerns: No Anes - Eval Final PreProcedure Day of Procedure 06/24/25 09:48 Patient weight: overweight Heart: regular rate and rhythm Lungs: clear to auscultation Airway: Mallampati scale class II Neurological: alert and oriented Last oral intake: >/= 8 hours ASA classification: II Emergent: no Anesthetic plan: proceed Anesthesia type and monitoring: general ETT and standard monitoring Results Review: All pre-operative results and documents have been reviewed as part of the pre- operative evaluation. Informed Consent: The patient's anesthetic plan and its attendant risks and benefits were discussed with the patient/family/POA. Questions were solicited and answers provided to the satisfaction of the patient/family/POA.
--- NOTE | 2025-06-24 09:57 | WPDHPUPDATE1 ---
History and Physical Update Update Date/Time: 06/24/25 09:57 History and Physical has been reviewed, including an updated exam of the patient. There are NO changes in the patient's condition. Risks, benefits, and alternatives have been discussed and questions answered. Patient agrees to proceed with procedure.
[2025-06-24] MEDS: BUPIVACAINE/EPINEPHRINE 0.5% 50 ML VIAL 20 ML INFILTRATE (10:05)
[2025-06-24] MEDS: ceFAZolin 2 GM in SODIUM CHLORIDE 0.9% IV 50 ML 100 ML IVPB (10:08)
[2025-06-24] MEDS: ONDANSETRON INJ 4 MG/2 ML VIAL IV PUSH (12:06)
--- NOTE | 2025-06-24 12:07 | P.OP_ITS ---
Procedure Note - Detailed Date of Procedure 06/24/25 Pre-op Diagnosis lumbar disc herniation w/radiculopathy Post-op Diagnosis Same Procedure Performed 1. Left L4-5 microdiskectomy 2. Use of microscope for microsurgical dissection 3. Use of C-arm for fluoroscopy Surgeon Nayely Rocha MD [facility] Anesthesia General Description of Procedure The patient was brought to the operating room, and general anesthesia was induced. The patient was placed prone on the Mark frame, and all pressure points were padded. Compression devices were placed on the patient's calves. The C-arm was brought onto the field to localize the appropriate disc space and assist with incisional planning. The area was prepped and draped in usual sterile fashion. A time out was conducted, and pre-operative antibiotics were administered. Local anesthesia was injected into the planned incision. A skin incision was made with a 10-blade scalpel, and dissection was carried down with the monopolar cautery to open the fascia. The left lamina of L4 was exposed with the bovie. An upgoing curette was placed under the lamina, and the C-arm was brought in to confirm the correct level. A self-retaining retractor was placed. The currette was used to clear the space under the lamina. A high- speed drill was used to thin the lamina to the ligamentum flavum. A currette was used to separate the lamina from the ligament, and more bone was removed with a kerrison. A 4-penfield was used to separate the dura from the disc space, and a disc bulge was noted under the traversing nerve root. A nerve hook was used to verduzco the posterior longitudinal ligament to break up the disc herniation. A micropituitary was used to remove a large piece of disc which immediately removed the compression of the traversing nerve root. A Woodsen was passed into the ventral epidural space to verify adequate decompression. Hemostasis was achieved with the bovie, Surgiflo, and cottonoid patties. The area was copiously irrigated. No evidence of CSF leak was noted. The fascia was closed with 0-Vicryl in an interrupted fashion. The soft tissue was again copiously irrigated. The dermis was closed with 2-0 interrupted Vicryl. The skin was closed with 4-0 subcuticular monocryl. Dermabond was placed over the incision. The patient was returned supine on the stretcher, extubated, and transferred to PACU without incident. Billing codes: 93421, 74132 Estimated Blood Loss 10 Drains No Packing No Pathology None sent Complications None Condition Stable Disposition PACU [facility] Billing Surgery - Charge Forward: Surgery Billing
[2025-06-24] MEDS: fentaNYL CITRATE INJ (*CRX) 100 MCG/2 ML VIAL 25 MCG IV PUSH ×4 (12:10→12:20)
--- NOTE | 2025-06-24 12:33 | SUR.PHASEI ---
Dr. Fairchild and Dr. Rocha aware that patient lost left front tooth at some point during surgery.
[2025-06-24] MEDS: oxyCODONE HCL (*CRX) 5 MG TAB IR PO (13:34)
--- NOTE | 2025-06-24 13:35 | SUR.PHASEII ---
Pt and pt's requested to speak with Dr. Fairchild re her tooth coming out. Dr. Fairchild in post op room 12 now speaking with them.
--- NOTE | 2025-06-24 13:59 | WPDANESPN ---
Anes - Prog Note Post-Op Date/Time: 06/24/25 13:59 Vital Signs: Last Vital Signs Temp 36.2 C L 06/24/25 11:57 Pulse 70 06/24/25 13:42 Resp 16 06/24/25 13:42 BP 126/70 06/24/25 13:42 Pulse Ox 100 06/24/25 13:42 O2 Del Method Room Air 06/24/25 13:42 O2 Flow Rate 8 06/24/25 12:10 Pain Score (VAS): n/a I/O: Intake & Output 06/23/25 06/24/25 06/24/25 23:59 07:59 15:59 Intake Total 150 Balance 150 06/24/25 09:16 POC Urine HCG, Qual Negative Patient Feedback: I was called to discuss broken front tooth noticed in recovery. Discussed with Lisa RITCHIE and Mary Jane PENNINGTON and both reported smooth intubation and extubation with no issue in between and teeth fully intact when dropped off in PACU. I suspect patient bit down hard on oral airway which can sometimes cause issues with teeth that are already susceptible to damage. I apologized to patient but assured her nothing occurred to the tooth during the anesthestic care.
== END 2025-06-24 13:51 | disposition home or self-care (01) ==
PROVIDERS: PCP Family Medicine; Visit Provider Neurological Surgery
PROC: (CPT 63030; principal; 2025-06-24 10:30)
DX: M51.16 Intervertebral disc disorders with radiculopathy, lumbar region (principal); Z87.891 Personal history of nicotine dependence
CPT/HCPCS: 63030; 99199; J0690; A9270; J1100; J2003; J2250; J2405; J2704; J3010; J7120

== ENCOUNTER 2025-06-24 20:37 | Emergency (ER) | payer MEDICARE, SELFPAY ==
--- OUTSIDE RECORDS SUMMARY | 2025-06-24 20:41 | XMS_ITS | Encounter Summary ---
Author Organization [facility] Healthcare Address [address] [place] [address] Care Team Providers Care Dock Attendant Name Role Phone Clifton Gan MD Primary Care Provider Dianna Hanks NP Unavailable [phone] Uday Correa MD Unavailable [phone] Irais Rogers MD Unavailable Erasto Kerns MD Unavailable [phone] Reason for Visit * Reason Onset Date Comments Back Pain 04/07/2025 Encounter Details Date Type Department Care Team (Late st Contact Info) Description 04/07/2025 Nurse Triage [facility] Medical Group Primary Care at [address] [address] Clifton Gan MD [address] [place] [address] [address] [place] [address] Social History Tobacco Use Types Packs/Day Years Used Date Smoking Tobacco: Every Day Cigarettes 0.3 30.7 Started: 1994 Comments:Smokes about 8 ciga rettes [...] 2 weeks. Seen in ED 04/06/25 at [facility] Hx: lumbar radiculopathy, thoracic radiculopathy, spinal stenosis of lumbar region, displacement oflumbar intervertebral disc w/o myelopathy I spoke to patient's (on HIPPA). Patient having severe back pain x 2 weeks. She was instructed to go to ED if pain got worse. She did get a toradol shot and steroids in an [facility] and it did not help. She did [...] groin or rectal area Protocols Used Back [id number] * Telephone Encounter - Mel Stephens RN [...] Patient went to [facility] to be admitted, after 9 hours, she was sent home.She is still in severe pain. uHng is on HIPAA. Does message need to [...] Patient went to [facility] to be admitted, after 9 hours, she [...] ambulance? No Additional Comments: Patient went to [facility] to be admitted, after 9 hours, she was sent home.She is still in severe pain. Hung is on HIPAA. Does message need to be routed? Yes-Action Needed documented in this encounter Plan of Treatment Not on file documented as of this encounter Visit Diagnoses Not on filedocumented in this encounter Care Teams Dock Attendant Relationship Specialty Start Date End Date Clifton Gan MD [address] [place] [address] PCP - General Family Medicine 05/21/24 [place] [address] [facility] [address] [place] [address] Nurse Practitioner Student Development Coordinator 06/17/24 Uday Correa MD [address] [place] [address] Referring Physician Obstetrics and Gynecology 03/10/25 Irais Rogers MD [address] [place] [address] Referring Physician Pain Management 04/06/25 Erasto Kerns MD [address] [facility] [address] [place] [address] Consulting Physician Neurosurgery 04/15/25 documented as of this encounter
--- OUTSIDE RECORDS SUMMARY | 2025-06-24 20:41 | XMS_ITS | Clinical Summary ---
Author Organization [facility] Address [address] [place] [address] Care Team Providers Care Alarm Security Or Surveillance Monitor Name Role Phone Clifton Gan MD Primary Care Provider Dianna Hanks NP Unavailable Uday Correa MD Unavailable [phone] Irais Rogers MD Unavailable Erasto Kerns MD Unavailable [phone] Allergies No known active allergies Medications linaCLOtide [...] (07/10/2024 11:16 AM CDT): Ongoing complaint. Has FIRE ALARM REPAIRER appointment next week. Will recheck a urine culture today. Last abx end of April. Will start septra twice daily We briefly discussed vaginal odor. She denies vaginal discharge. We discussed possibility of BV. We discussed use of boric acid tablets or suppositories [id number]. Discussed use of baking soda baths. Discussed [...] Encounters Date Type Department Care Team Description 06/16/[address] [facility] Medical Group Primary Care at [address] [phone] Nicci Arguello MD 05/27/2025 Telephone [facility] [address] [place] [address] Kiana Nazario 05/06/2025 Telephone [facility] [address] [place] [address] [address] [place] [address] Danielito Brown MD 04/30/[address] [facility] Medical [facility] Primary Care at [address] [phone] Clifton Gan MD Medical Records Request 04/28/2025 2:14 PM CDT - 04/28/2025 11:59 PM CDT Hospital Encounter [facility] Diagnostic Imaging [address] [place] [address] Lumbar disc herniation with radiculopathy Discharge Disposition: Discharge to home or self care 04/28/2025 12:45 PM CDT - 04/28/2025 11:59 PM CDT Hospital Encounter [facility] [address] [place] [address] Reza Goodman MD Spinal stenosis of lumbar region without neurogenic claudication; Lumbar radiculopathy Discharge Disposition: Discharge to home or self care 04/27/2025 6:55 AM CDT - 04/27/2025 11:59 PM CDT Hospital Encounter [facility] Center [address] [place] [address] Matti Marrero NP Lumbar radiculopathy (Primary Dx); Lumbar disc herniation with radiculopathy; Spinal stenosis of lumbar region without neurogenic claudication Discharge Disposition: Discharge to home or self care 04/23/2025 11:20 AM CDT - 04/23/2025 11:59 PM CDT Hospital Encounter [facility] [address] [place] [address] Discharge Disposition: Discharge to home or self care 04/23/2025 11:00 AM CDT Office Visit [facility] [address] [place] [address] 2 [address] [place] [address] Danielito Brown MD Lumbar radiculopathy [M54.16] (Primary Dx) 04/21/2025 Telephone [facility] Center [address] [place] [address] Melita Resendez 04/21/2025 Telephone [facility] Rehabilitation Services at [address] [address] Edelmira Hayes, PT Cancel (Patient call in today because she is at the hospital in a lot of pain, and doctor states therapy is not helping right now pt request to be Discharged, and her doctor will check the system for her appt on 04/23/2025) 04/21/2025 Orders Only [facility] [address] [place] [address] 2 [address] [place] [address] Odilia Peterson, GANESH Lumbar disc herniation with radiculopathy (Primary Dx) 04/21/[address] [facility] Medical Group Primary Care at [address] [address] Yakelin Cotto RN 04/21/2025 Telephone [facility] Rehabilitation Services at [address] [address] Jose D Elaine, PT Appointment (Excused - 1st Ill - calling ambulance) 04/17/2025 10:45 AM CDT Therapy [facility] Rehabilitation Services at [address] [address] Delia Minor, PT Lumbar disc herniation with radiculopathy (Primary Dx) 04/15/2025 Telephone [facility] Rehabilitation Services at [address] [address] Corey Luan, PT Appointment 04/14/2025 9:50 AM CDT Ancillary Procedure Pain Management Imaging [address] [facility] [address] [place] [address] Lumbar disc herniation with radiculopathy; Lumbar radiculopathy 04/14/2025 7:57 AM CDT - 04/14/2025 11:59 PM CDT Hospital Encounter [facility] Center [address] [place] [address] Reza Goodman MD Lumbar radiculopathy (Primary Dx); Lumbar disc herniation with radiculopathy; Spinal stenosis of lumbar region without neurogenic claudication Discharge Disposition: Discharge to home or self care 04/13/2025 4:30 PM CDT Therapy [facility] Rehabilitation Services at [address] [place] [address] Simon Gresham PTA Lumbar disc herniation with radiculopathy (Primary Dx) 04/13/[address] [facility] Medical Group Primary Care at [address] [phone] Clifton Gan MD Medical Question/Miscellane ous 04/10/2025 8:00 AM CDT Therapy [facility] Rehabilitation Services at [address] [place] [address] Jose D Elaine PT Lumbar disc herniation with radiculopathy 04/10/[address] [facility] Primary Care at [address] [phone] Clifton Gan MD 04/10/2025 Plan of Care Documentation [facility] Rehabilitation Services at [address] [place] [address] 04/09/2025 9:00 AM CDT Office Visit [facility] [address] [facility] [address] [place] [address] Odilia Peterson NP Lumbar disc herniation with radiculopathy (Primary Dx) 04/09/2025 8:33 AM CDT - 04/09/2025 11:59 PM CDT Hospital Encounter [facility] [address] [place] [id number] Discharge Disposition: Discharge to home or self care 04/09/2025 Telephone [facility] Primary Care at [address] [phone] Clifton Gan MD Medical Question/Miscellane ous 04/07/2025 Telephone [facility] [address] [facility] [address] [place] [address] Betzaida White 04/07/2025 Nurse Triage [facility] Primary Care at [address] [phone] Clifton Gan MD 04/06/2025 5:29 PM CDT - 04/06/2025 8:03 PM CDT Emergency [facility] Emergency Department [address] [place] [address] Dinesh Obrien MD Chronic left-sided low back pain with left-sided sciatica (Primary Dx); Lumbar radiculopathy Discharge Disposition: Discharge to home or self care 04/06/2025 10:30 AM CDT Office Visit [facility] Primary Care at [address] [phone] Clifton Gan MD Herniated nucleus pulposus, L4-5 left (Primary Dx); Cauda equina syndrome (HCC) 04/06/2025 Nurse Triage [facility] Primary Care at [address] [phone] Clifton Gan MD 04/06/2025 Orders Only [facility] Primary Care at [address] [phone] Clifton Gan MD Degenerative disc disease, lumbar 04/06/2025 Telephone [facility] Primary Care at [address] [address] Clifton Gan MD warm transfer 04/02/2025 2:30 PM CDT Office Visit [facility] Primary Care at [address] [address] Clifton Gan MD Spinal stenosis of lumbar region without neurogenic claudication (Primary Dx) 03/31/2025 7:[address] PM [address]T Office Visit [facility] Medical Group [facility] at [address] [phone] Coco Shields NP Acute left-sided low back [...] Procedure Name Priority Date/Time Associated Diagnosis Comments XR CHEST PA LATERAL 2 VIEWS Schedule Routine, Read Routine (OP Routine) 06/15/2025 11:19 AM CDT PAIN MGMT IMAGING LUMBAR/SACRAL SELECTIVE NERVE ROOT [...] Recently Relevant to Health Maintenance Results * XR Chest Pa Lateral 2 Views (06/15/2025 11:19 AM CDT) Anatomical Region Laterality Modality Body, Chest N/A Radiographic Nelsy ging Historical Provider IMIvone XR PROCEDURES Final R esult * Imaging Lumbar/Sacral Selective Nerve Root INJ (TFE) Left ([id number]) (04/28/2025 4:34 PM CDT) Narrative [facility] - 04/28/2025 4:38 PM CDT The images from this study are not interpreted by Radiology. Please refer to the physician's procedure / OR operative note. Reza MERIDA PAIN MGMT PROCEDU RES Final Result [facility] [...] signed by: Kina Pérez M.D. Odilia Peterson NP IMG XR PROCEDURES Final Result * Neuro CT Outside Reference (04/23/2025 11:20 AM CDT) Impressions [facility] - 04/23/2025 11:20 AM CDT These images are for Reference purposes only and have not been reviewed by [facility] Radiology. There will be no report generated by a [facility] Radiologist. Narrative [facility] - 04/23/2025 11:20 AM CDT EXAMINATION: Images For Reference Purposes Only Danielito Brown MD IMG CT PROCEDURES Final Resul t [facility] * Imaging Lumbar/Caudal Epidural Steroid INJ ([id number]) (04/14/2025 10:08 AM CDT) Narrative [facility] - 04/14/2025 10:09 AM CDT The images from this study are not interpreted by Radiology. Please refer to the physician's procedure / OR operative note. Reza Goodman MD IMG PAIN MGMT PROCEDU RES Final Result Performing Organization Address City/[facility]/ZIP Co de Phone Number [facility] * Neuro MR Outside Reference (04/09/2025 8:33 AM CDT) Impressions [facility] - 04/09/2025 8:33 AM CDT These images are for Reference purposes only and have not been reviewed by [facility] Radiology. There will be no report generated by a [facility] Radiologist. Narrative [facility] - 04/09/2025 8:33 AM CDT EXAMINATION: Images For Reference Purposes Only Danielito Brown MD IMG MRI PROCEDURES Final Resu lt Performing Organization Address [facility] Co de Phone Number [facility] * HM [...] GENERAL ORDERABLES Edited Result - Final [address] [address] [facility] [place] [address] from Last 3 Months or Most Recently Relevant to Health Maintenance Insurance [facility] MEDICARE ADVANTAGE [facility] MEDICARE ADVANTAGE Care Teams Alarm Security Or Surveillance Monitor Relationship Specialty Start Date End Date Clifton Gan MD [address] [facility] [address] [place] [address] PCP - General Family Medicine 05/21/24 [place] [address] [facility] [address] [place] [address] Nurse Practitioner Bpm Solution Architect 06/17/24 Uday Correa MD [address] [place] [address] Referring Physician Obstetrics and Gynecology 03/10/25 Irais Rogers MD [address] [place] [address] Referring Physician Pain Management 04/06/25 Erasto Kerns MD [address] [facility] 3 [place] [address] Consulting Physician Neurosurgery 04/15/25
--- OUTSIDE RECORDS SUMMARY | 2025-06-24 20:41 | XMS_ITS | Clinical Summary ---
Author Organization [facility] Address [address] [place] [address] Care Team Providers Care [place] Division Director Name Role Phone Unavailable Primary Care Provider Unavailabl e Source Comments [facility],non-owned Affiliates and Associated Physician Practices is amultiple site organization consisting of ambulatory clinics and hospital sitesin [place], [place], [place] and [place]. This disclosure is being madepursuant to the Care Everywhere program and may not contain all information available regarding this patient. Last updated 18.[facility] Allergies No known active allergies Medications * [...] - 26 mg/dL 01/20/2024 10:29 PM CDT [facility] Creatinine 0.81 0.56 - 0.96 mg/dL 01/20/2024 10:29 PM CDT [facility] Sodium 139 136 - 145 mmol/L 01/20/2024 10:29 PM [facility] Potassium 4.1 3.5 - 4.5 mmol/L 01/20/2024 10:29 PM [facility] Chloride 105 98 - 107 mmol/L 01/20/2024 10:29 PM [facility] CO2 25 22 - 29 mmol/L 01/20/2024 10:29 PM [facility] Glucose 86 70 - 115 mg/dL 01/20/2024 10:29 PM [facility] Calcium 9.6 8.4 - 10.2 mg/dL 01/20/2024 10:29 PM [facility] Protein Total 7.4 6.0 - 8.3 g/dL 01/20/2024 10:29 PM [facility] Albumin 4.1 3.4 - 5.0 g/dL 01/20/2024 10:29 PM [facility] Bilirubin Total 0.6 0.2 - 1.2 mg/dL 01/20/2024 10:29 PM [facility] Alkaline Phosphatase 61 40 - 150 U/L 01/20/2024 10:29 PM [facility] ALT 13 5 - 55 U/L 01/20/2024 10:29 PM [facility] AST 17 5 - 34 U/L 01/20/2024 10:29 PM [facility] Anion Gap 9 6 - 16 01/20/2024 10:29 PM [facility] BUN/Creatinine Ratio 12 7 - 23 01/20/2024 10:29 PM [facility] Osmolality Calculated 286 275 - 295 mOsm/kg 01/20/2024 10:29 PM [facility] Albumin/Globulin Ratio 1.2 1.1 - 2.3 01/20/2024 10:29 PM [facility] eGFR by CKD-EPI >90 >=90 mL/min/1.7 3 m2 01/20/2024 10:29 PM [facility] Blood BLOOD SPECIMEN / Unknown Venipuncture / Unknown 01/20/2024 9:47 PM CDT 01/20/2024 9:57 PM CDT us Sage Schwartz MD LAB - CHEMISTRY ORDERABLES Fi nal Result [facility] [address] [place] [address], [place] [phone] from Last 3 Months or Most Recently Relevant to Health Maintenance Insurance [facility]
[2025-06-24 20:46] VITALS: BP 146/89; PULSE 74; RESP 18; TEMP 36.3; O2SAT 100
--- NOTE | 2025-06-24 22:21 | ED.DENTAL ---
HPI - Dental/Oral General Chief complaint: Dental/Oral Stated complaint: mouth and tooth pain, from recent intubation Time Seen by Provider: 06/24/25 21:44 History of Present Illness HPI Narrative: 44-year-old female presents emergency department with at bedside for broken teeth. Patient had a outpatient back surgery performed today at [facility]. Unfortunately her 2 front teeth were partially avulsed during intubation. The patient presents to the emergency department for pain to her front teeth and gums. She states she has had difficulty drinking and eating because of the pain. She was prescribed oxycodone postop which she took around 8:15 p.m. without improvement. The patient reportedly has an appointment with a dentist in 6 days, however is hoping she can be seen sooner. Related Data Home Medications ?Medication ?Instructions ?Recorded ?Confirmed ?Last Taken ?Type ibuprofen 200 mg tablet (Advil) 800 mg PO DAILY 06/15/25 06/24/25 06/16/25 History Held on 06/24/25. Instructions: Resume on 07/01/25. Allergies Allergy/AdvReac Type Severity Reaction Status Date / Time No Known Allergies Allergy Verified 06/24/25 09:14 Review of Systems Review of Systems: All systems reviewed & are unremarkable except as noted in HPI and below PMFSH Past Medical History Medical History Chronic pain Lumbar spondylosis Surgical History Surgical History History of delivery x 2 H/O neck surgery Disc replacement 2020 C3-C4 Family History Family History Mother Cerebrovascular accident Brain aneurysm Social History Social History Years smoked: 24 Smoking status: Former smoker Tobacco type: cigarettes Smoking end date: 06/10/25 Additional smoking assessment comments: CURRENTLY SMOKES 1-2 CIGARETTES/DAY TRYING TO QUIT Alcohol intake: current Substance use: never Substance use type: does not use Do You Feel Safe in your Home?: Yes Lack of Transportation: No Lack of Food: Never True Current Housing: I Have Housing Concerned About Future Housing: No Difficulty Paying Gas/Electric Bills: No Difficulty Paying for Meds: YES Currently Unemployed: No Education: Decline to Answer Difficulty w/ Childcare or Family Care: No Living arrangements: with family Occupation/Education: other Gender identity (if verbalized by the patient): Female Spiritual care concerns: No Exam Narrative: GENERAL: Well-appearing, well-nourished, and in no acute distress. HEAD: Normocephalic, atraumatic. EYES: EOMI. ENT: Nares clear, no rhinorrhea or epistaxis. Mucous membranes moist. Multiple missing dentition throughout. Fractures to tooth #8 and #9. No surrounding erythema or warmth. No drainage or fluctuation. Airway is intact. Patient is tolerating secretions and speaking in full sentences. NECK: Supple. CHEST: Clear to auscultation. No respiratory distress. HEART: Regular rate and rhythm. No murmur heard. Normal peripheral pulses. EXTREMITIES: Normal range of motion. No edema. SKIN: Warm, dry, no rash. NEURO: No focal deficits. Alert and oriented x3 Course Vital Signs Vital signs: Vital Signs Temperature 97.4 F L 06/24/25 20:46 Pulse Rate 74 06/24/25 20:46 Respiratory Rate 18 06/24/25 20:46 Blood Pressure 146/89 H 06/24/25 20:46 Pulse Oximetry 100 06/24/25 20:46 Oxygen Delivery Room Air 06/24/25 20:46 Temperature 97.4 F L 06/24/25 20:46 Pulse Rate 74 06/24/25 20:46 Respiratory Rate 18 06/24/25 20:46 Blood Pressure 146/89 H 06/24/25 20:46 Pulse Oximetry 100 06/24/25 20:46 Oxygen Delivery Room Air 06/24/25 20:46 MDM - Dental/Oral MDM Narrative Medical decision making narrative: 44-year-old female presents emergency department for partial tooth #8 and #9 avulsion after she was intubated earlier today at [facility] for an outpatient back surgery. Patient is reporting persistent pain to her teeth and gum line. She is prescribed oxycodone postop which she has been taking without improvement. Vital signs are stable. Patient is afebrile and nontoxic appearing. Airway is intact. She is tolerating her secretions and speaking in full sentences. Exam is significant for the above. Patient was given viscous lidocaine on cause with improvement in pain. She is tolerating the p.o.. Will discharge with prescription for viscous lidocaine, advised her to continue oxycodone p.r.n. and follow-up closely with her dentist at her appointment on Sunday. Will also provide her a list of dentists referrals to see if she can be seen sooner. Patient given return precautions. Patient agreeable to plan verbalized understanding. Discharged in stable condition. Discharge Plan Discharge Clinical Impression: Fracture of tooth Qualifiers: Encounter type: initial encounter Fracture type: closed Qualified Code(s): S02.5XXA - Fracture of tooth (traumatic), initial encounter for closed fracture Patient Disposition: Home Condition: Stable Instructions: Antibiotic Form, Acute Dental Trauma (ED), Toothache (ED) Additional Instructions: Please continue taking your oxycodone use the viscous lidocaine as directed. Follow-up closely with a dentist. Return to the emergency department if you are unable to tolerate food or fluids, develop a fever or other concerning symptoms. Patient Language: Romansh Prescriptions: New lidocaine HCl [Lidocaine Viscous] 2 % solution 1 applic mucous membrane QID PRN (Reason: pain) Qty: 100 0RF No Action norethindrone (contraceptive) 0.35 mg tablet 0.35 mg PO DAILY Qty: 84 3RF lidocaine 5 % adhesive patch,medicated 1 patch topical DAILY Qty: 15 0RF Rx Instructions: leave on most painful area for up to 12 hrs ibuprofen [Advil] 200 mg tablet 800 mg PO DAILY oxycodone 5 mg tablet 5 mg PO Q6H PRN (Reason: pain) Qty: 28 0RF methocarbamol 750 mg tablet 1,500 mg PO QID PRN (Reason: muscle spasm) Qty: 60 0RF cephalexin 500 mg capsule 500 mg PO Q6H Qty: 12 0RF sennosides-docusate sodium 8.6-50 mg tablet 1 tab-cap PO BID Qty: 14 0RF ketorolac 10 mg tablet 10 mg PO Q6H PRN (Reason: pain) Qty: 10 0RF Rx Instructions: maximum total duration of 5 days from all oral, intranasal, or parenteral formulations gabapentin 100 mg capsule 100 mg PO TID 7 Days Qty: 21 0RF Follow-up/Referrals: Elvia,Clifton Bonilla MD [Primary Care Provider, Unknown] Stand Alone Forms: Work/School Release IP
[2025-06-24] MEDS: LIDOCAINE 2% VISC SOLN 15 ML UDC MUCOUS MEM (22:25)
--- NOTE | 2025-06-24 22:39 | PC.NURSE ---
Pt able to drink water through a straw and states the pain is better after the lidocaine EDP HIWOT [facility] made aware.
== END 2025-06-24 22:52 | disposition home or self-care (01) ==
PROVIDERS: Emergency Provider Physician Assistant; PCP Family Medicine
DX: S02.5XXA Fracture of tooth (traumatic), initial encounter for closed fracture (principal); Y65.8 Other specified misadventures during surgical and medical care; Z87.891 Personal history of nicotine dependence; Z79.3 Long term (current) use of hormonal contraceptives
CPT/HCPCS: 99283

== ENCOUNTER 2025-09-02 11:56 | Emergency (ER) | payer MEDICARE, SELFPAY ==
[2025-09-02 12:04] VITALS: BP 129/83; PULSE 68; RESP 18; TEMP 36.6; O2SAT 100
--- OUTSIDE RECORDS SUMMARY | 2025-09-02 13:20 | XMS_ITS | Clinical Summary ---
Author Organization [facility] at the [facility] Address [address] [place] [address] Care Team Providers Care Geographic Information Systems Manager Name Role Phone Clifton Gan MD Primary Care Provider Dianna Hanks NP Unavailable Uday Correa MD Unavailable [phone] Irais Rogers MD Unavailable Erasto Kerns MD Unavailable [phone] Allergies No known active allergies Medications linaCLOtide [...] (07/10/2024 11:16 AM CDT): Ongoing complaint. Has [employer] REPA[employer]ER appointment next week. Will recheck a urine culture today. Last abx end of April. Will start septra twice daily We briefly discussed vaginal odor. She denies vaginal discharge. We discussed possibility of BV. We discussed use of boric acid tablets or suppositories [id number]. Discussed use of baking soda baths. Discussed [...] [facility] Primary Care at [address] [address] Provider, MD Nicci from Last 3 Months Immunizations Immunization Administration [...] Date Smoking Tobacco: Every Day Cigarettes 0.3 30.9 Started: 1994 Comments:Smokes about 8 ciga rettes [...] Routine (OP Routine) 06/15/2025 11:19 AM CDT HM MAMMOGRAPHY Routine 06/27/2024 2:07 PM CDT HEPATITIS C ANTIBODY Routine 05/21/2024 10:00 AM CDT Need for hepatitis C screening test from Last 3 Months or Most Recently Relevant to Health Maintenance Results * XR Chest Pa Lateral 2 Views (06/15/2025 11:19 AM CDT) Anatomical Region Laterality Modality Body, Chest N/A Radiographic Nelsy ging us Historical Provider MD MERIDA XR PROCEDURES Final R esult * HM MAMMOGRAPHY (06/27/2024 2:07 PM CDT) [...] - GENERAL ORDERABLES Edited Result - Final [facility] [id number] [place] [address] from Last 3 Months or Most Recently Relevant to Health Maintenance Insurance [facility] CHOICE PLUS [facility] MEDICARE ADVANTAGE [facility] MEDICARE ADVANTAGE Care Teams Geographic Information Systems Manager Relationship Specialty Start Date End Date Clifton Gan MD [address] [facility] [address] [place] [address] PCP - General Family Medicine 05/21/24 [place] [address] [address] [facility] [address] [place] [address] Nurse Practitioner Regional Sales Manager 06/17/24 Uday Correa MD [address] [facility] [address] [place] [address] Referring Physician Obstetrics and Gynecology 03/10/25 Irais Rogers MD [address] [place] [address] Referring Physician Pain Management 04/06/25 Erasto Kerns MD [address] [address] Consulting Physician Neurosurgery 04/15/25
--- OUTSIDE RECORDS SUMMARY | 2025-09-02 13:20 | XMS_ITS | Clinical Summary ---
Author Organization [facility] Address [address] [place] [address] Care Team Providers Care Button Bradder Name Role Phone Unavailable Primary Care Provider Unavailabl e Source Comments [facility],non-owned Affiliates and Associated Physician Practices is amultiple site organization consisting of ambulatory clinics and hospital sitesin [place], [place], [place] and [place]. This disclosure is being madepursuant to the Care Everywhere program and may not contain all information available regarding this patient. Last updated 18.[facility] Allergies No known active allergies Medications * [...] VACCINE (1 - 3-dose SCDM series) 2008 DEPRESSION SCREENING 10/22/2024 COVID-19 VACCINE (1 - 2023-2 5 season) 2025 INFLUENZA VACCINE (#1) 2025 SCREENING FOR DIABETES [...] - 26 mg/dL 01/20/2024 10:29 PM CDT [facility] Creatinine 0.81 0.56 - 0.96 mg/dL 01/20/2024 10:29 PM CDT [facility] Sodium 139 136 - 145 mmol/L 01/20/2024 10:29 PM [facility] Potassium 4.1 3.5 - 4.5 mmol/L 01/20/2024 10:29 PM [facility] Chloride 105 98 - 107 mmol/L 01/20/2024 10:29 PM [facility] CO2 25 22 - 29 mmol/L 01/20/2024 10:29 PM [facility] Glucose 86 70 - 115 mg/dL 01/20/2024 10:29 PM [facility] Calcium 9.6 8.4 - 10.2 mg/dL 01/20/2024 10:29 PM [facility] Protein Total 7.4 6.0 - 8.3 g/dL 01/20/2024 10:29 PM [facility] Albumin 4.1 3.4 - 5.0 g/dL 01/20/2024 10:29 PM [facility] Bilirubin Total 0.6 0.2 - 1.2 mg/dL 01/20/2024 10:29 PM [facility] Alkaline Phosphatase 61 40 - 150 U/L 01/20/2024 10:29 PM [facility] ALT 13 5 - 55 U/L 01/20/2024 10:29 PM [facility] AST 17 5 - 34 U/L 01/20/2024 10:29 PM [facility] Anion Gap 9 6 - 16 01/20/2024 10:29 PM [facility] BUN/Creatinine Ratio 12 7 - 23 01/20/2024 10:29 PM [facility] Osmolality Calculated 286 275 - 295 mOsm/kg 01/20/2024 10:29 PM [facility] Albumin/Globulin Ratio 1.2 1.1 - 2.3 01/20/2024 10:29 PM [facility] eGFR by CKD-EPI >90 >=90 mL/min/1.7 3 m2 01/20/2024 10:29 PM [facility] Blood BLOOD SPECIMEN / Unknown Venipuncture / Unknown 01/20/2024 9:47 PM CDT 01/20/2024 9:57 PM CDT us Sage Schwartz MD LAB - CHEMISTRY ORDERABLES Fi nal Result [facility] [address] [place] [address], [place] [phone] from Last 3 Months or Most Recently Relevant to Health Maintenance Insurance [facility], [facility]
--- NOTE | 2025-09-02 13:29 | ED.DENTAL ---
HPI - Dental/Oral General Chief complaint: Dental/Oral Stated complaint: dental issues Time Seen by Provider: 09/02/25 13:29 Focused HPI: This is a 44 year old female that presents to the ER for dental problems. Reports her front tooth was broken during surgery. Reports she went to the dental school and had the tooth pulled. Reports she believes she may have an abscess. Ongoing over the last 4 days she noted the swelling. GENERAL: Well-appearing, well-nourished, and in no acute distress. HEAD: Normocephalic, atraumatic. CHEST: Clear to auscultation. ?No respiratory distress. HEART: Regular rate and rhythm.? NEURO: ?Alert and oriented x3. Patient screened in triage and initial orders placed.? ?Additional care and disposition to be based upon?diagnostic testing and treatment. History of Present Illness MD Complaint: tooth pain Location: Tooth # (9) Related Data Home Medications ?Medication ?Instructions ?Recorded ?Confirmed ?Last Taken ?Type ibuprofen 200 mg tablet (Advil) 800 mg PO DAILY 06/15/25 06/24/25 06/16/25 History Held on 06/24/25. Instructions: Resume on 07/01/25. Allergies Allergy/AdvReac Type Severity Reaction Status Date / Time No Known Allergies Allergy Verified 09/02/25 12:06 Review of Systems Review of Systems: All systems reviewed & are unremarkable except as noted in HPI and below PMFSH Past Medical History Medical History Chronic pain Lumbar spondylosis Surgical History Surgical History History of lumbar discectomy History of delivery x 2 H/O neck surgery Disc replacement 2020 C3-C4 Family History Family History Mother Cerebrovascular accident Brain aneurysm Social History Social History Years smoked: 24 Tobacco type: cigarettes Smoking end date: 06/10/25 Additional smoking assessment comments: CURRENTLY SMOKES 1-2 CIGARETTES/DAY TRYING TO QUIT Alcohol intake: current Substance use: never Substance use type: does not use Do You Feel Safe in your Home?: Yes Lack of Transportation: No Lack of Food: Never True Current Housing: I Have Housing Concerned About Future Housing: No Difficulty Paying Gas/Electric Bills: No Difficulty Paying for Meds: YES Currently Unemployed: No Education: Decline to Answer Difficulty w/ Childcare or Family Care: No Living arrangements: with family Occupation/Education: other Gender identity (if verbalized by the patient): Female Spiritual care concerns: No Exam Narrative: GENERAL: Well-appearing, well-nourished, and in no acute distress. HEAD: Normocephalic, atraumatic. EYES: EOMI. ENT: Nares clear, no rhinorrhea or epistaxis. Mucous membranes moist. Oropharynx without tonsillar hypertrophy exudate or other lesions. Area of tooth extraction with mild swelling, no focal abscess NECK: Supple. CHEST: No respiratory distress HEART: Regular rate EXTREMITIES: Normal range of motion. No edema. SKIN: Warm, dry, no rash. NEURO: No focal deficits. Alert and oriented x3. PSYCH: Normal mood and affect Course Vital Signs Vital signs: Vital Signs Temperature 97.8 F 09/02/25 12:04 Pulse Rate 68 09/02/25 12:04 Respiratory Rate 18 09/02/25 12:04 Blood Pressure 129/83 09/02/25 12:04 Pulse Oximetry 100 09/02/25 12:04 Oxygen Delivery Room Air 09/02/25 12:04 Temperature 97.8 F 09/02/25 12:04 Pulse Rate 68 09/02/25 12:04 Respiratory Rate 18 09/02/25 12:04 Blood Pressure 129/83 09/02/25 12:04 Pulse Oximetry 100 09/02/25 12:04 Oxygen Delivery Room Air 09/02/25 12:04 MDM - Dental/Oral MDM Narrative Medical decision making narrative: Patient presents the emergency department after having a tooth extraction with worsening pain, swelling. She is afebrile and nontoxic appearing. No obvious abscess on exam. Will be started on oral antibiotics and instructed to follow-up with her dentist Differential Diagnosis Differential diagnosis: Likely toothache and dental abscess Critical Care Time Critical Care Time Critical Care Time: No Discharge Plan Discharge Clinical Impression: Toothache Patient Disposition: Home Condition: Stable Instructions: Antibiotic Form, Toothache (ED) Additional Instructions: Return to the ER if you experience fever, increasing swelling of the area. Or any other symptoms that are concerning to you Take oral antibiotic as prescribed Follow up with your dentist Patient Language: Danish Prescriptions: New amoxicillin-pot clavulanate 875-125 mg tablet 1 tablet PO Q12H 7 Days Qty: 14 0RF hydrocodone-acetaminophen 5-325 mg tablet 1 tablet PO Q6H PRN (Reason: pain) Qty: 10 0RF No Action norethindrone (contraceptive) 0.35 mg tablet 0.35 mg PO DAILY Qty: 84 3RF ibuprofen [Advil] 200 mg tablet 800 mg PO DAILY methocarbamol 750 mg tablet 1,500 mg PO QID PRN (Reason: muscle spasm) Qty: 60 0RF Follow-up/Referrals: Elvia,Clifton Bonilla MD [Primary Care Provider, Unknown]
--- OUTSIDE RECORDS SUMMARY | 2025-09-02 14:37 | XMS_ITS | Clinical Summary ---
Author Organization [facility] Address [address] [place] [address] Care Team Providers Care Triage Technician Name Role Phone Unavailable Primary Care Provider Unavailabl e Source Comments [facility],non-owned Affiliates and Associated Physician Practices is amultiple site organization consisting of ambulatory clinics and hospital sitesin [place], [place], [place] and [place]. This disclosure is being madepursuant to the Care Everywhere program and may not contain all information available regarding this patient. Last updated 18.[facility] Allergies No known active allergies Medications * [...] - 26 mg/dL 01/20/2024 10:29 PM CDT [facility] Creatinine 0.81 0.56 - 0.96 mg/dL 01/20/2024 10:29 PM CDT [facility] Sodium 139 136 - 145 mmol/L 01/20/2024 10:29 PM [facility] Potassium 4.1 3.5 - 4.5 mmol/L 01/20/2024 10:29 PM [facility] Chloride 105 98 - 107 mmol/L 01/20/2024 10:29 PM [facility] CO2 25 22 - 29 mmol/L 01/20/2024 10:29 PM [facility] Glucose 86 70 - 115 mg/dL 01/20/2024 10:29 PM [facility] Calcium 9.6 8.4 - 10.2 mg/dL 01/20/2024 10:29 PM [facility] Protein Total 7.4 6.0 - 8.3 g/dL 01/20/2024 10:29 PM [facility] Albumin 4.1 3.4 - 5.0 g/dL 01/20/2024 10:29 PM [facility] Bilirubin Total 0.6 0.2 - 1.2 mg/dL 01/20/2024 10:29 PM [facility] Alkaline Phosphatase 61 40 - 150 U/L 01/20/2024 10:29 PM [facility] ALT 13 5 - 55 U/L 01/20/2024 10:29 PM [facility] AST 17 5 - 34 U/L 01/20/2024 10:29 PM [facility] Anion Gap 9 6 - 16 01/20/2024 10:29 PM [facility] BUN/Creatinine Ratio 12 7 - 23 01/20/2024 10:29 PM [facility] Osmolality Calculated 286 275 - 295 mOsm/kg 01/20/2024 10:29 PM [facility] Albumin/Globulin Ratio 1.2 1.1 - 2.3 01/20/2024 10:29 PM [facility] eGFR by CKD-EPI >90 >=90 mL/min/1.7 3 m2 01/20/2024 10:29 PM [facility] Blood BLOOD SPECIMEN / Unknown Venipuncture / Unknown 01/20/2024 9:47 PM CDT 01/20/2024 9:57 PM CDT us Sage Schwartz MD LAB - CHEMISTRY ORDERABLES Fi nal Result [facility] [address] [place] [address], [place] [phone] from Last 3 Months or Most Recently Relevant to Health Maintenance Insurance [facility]
--- OUTSIDE RECORDS SUMMARY | 2025-09-02 14:37 | XMS_ITS | Clinical Summary ---
Author Organization [facility] at the [facility] Address [address] [place] [address] Care Team Providers Care Neon Tube Bender Name Role Phone Clifton Gan MD Primary Care Provider Dianna Hanks NP Unavailable Uday Correa MD Unavailable [phone] Irais Rogers MD Unavailable Erasto Kerns MD Unavailable [phone] Allergies No known active allergies Medications linaCLOtide [...] (07/10/2024 11:16 AM CDT): Ongoing complaint. Has [employer] appointment next week. Will recheck a urine culture today. Last abx end of April. Will start septra twice daily We briefly discussed vaginal odor. She denies vaginal discharge. We discussed possibility of BV. We discussed use of boric acid tablets or suppositories [id number]. Discussed use of baking soda baths. Discussed [...] Department Care Team Description 06/16/2025 Orders Only [facility] Primary Care at [address] [address] Provider, MD Nicci from Last [...] - GENERAL ORDERABLES Edited Result - Final [facility] [id number] [place] [address] from Last 3 Months or Most Recently Relevant to Health Maintenance Insurance [facility] CHOICE PLUS [facility] HMO/PPO Address: [facility] [address] [place] [address] [facility] MEDICARE ADVANTAGE [facility] MEDICARE Address: [address] [place] [phone] [facility] MEDICARE ADVANTAGE [facility] MEDICARE Address: [address] [address] [place] [address] Care Teams Neon Tube Bender Relationship Specialty Start Date End Date Clifton Gan MD [address] [facility] [address] [place] [address] PCP - General Family Medicine 05/21/24 [place] [address] [address] [facility] [address] [place] [address] Nurse Practitioner Proof Inspector 06/17/24 Uday Correa MD [address] [facility] [address] [place] [address] Referring Physician Obstetrics and Gynecology 03/10/25 Irais Rogers MD [address] [place] [address] Referring Physician Pain Management 04/06/25 Erasto Kerns MD [address] [address] Consulting Physician Neurosurgery 04/15/25
== END 2025-09-02 14:05 | disposition home or self-care (01) ==
LOC: ANHED 13:35
PROVIDERS: Emergency Provider Physician Assistant; PCP Family Medicine
DX: K08.89 Other specified disorders of teeth and supporting structures (principal); F17.210 Nicotine dependence, cigarettes, uncomplicated
CPT/HCPCS: 99283